=== PATIENT | male | born 1940 | race Caucasian/White ===

== ENCOUNTER → 2018-05-30 11:14 | Outpatient (CLI) | payer MEDICARE, OTHER, SELFPAY ==
--- NOTE | 2018-05-30 11:23 | XR_ITS ---
XR chest 2V HISTORY: ITS.REASON: PRODUCTIVE COUGH, HYMOPTYSIS ORDERING PHYSICIAN: Mohit Perez MD PATIENT AGE: 78 years COMPARISON: 12/25/2016 FINDINGS: Cardiomegaly with pulmonary venous congestion as with chronic CHF. There is increased density in both lower lobes suggesting bibasilar infiltrates appear worse on the previous exam. There is also prominence of the right suprahilar region. IMPRESSION: 1. Cardiomegaly with chronic CHF. 2. Chronic bibasilar infiltrates 3. Possible right suprahilar nodule
== END ==
PROVIDERS: PCP Family Medicine; Visit Provider Family Medicine
DX: R05 Cough (principal); R04.2 Hemoptysis
CPT/HCPCS: 71046

== ENCOUNTER → 2018-08-02 12:53 | Outpatient (CLI) | payer MEDICARE, OTHER, SELFPAY ==
[2018-08-02 13:31] LABS: Blood Urea Nitrogen 11 mg/dL (7-18); Creatinine,Serum 1.27 mg/dL (0.70-1.30); Estimated Glomerular Filt Rate 55 ml/min (>60); GFR (African American) 67 ML/MIN (>60)
--- NOTE | 2018-08-02 13:42 | CT_ITS ---
CT chest w con HISTORY: ITS.REASON: HEMOPTYSIS,ABNORMAL CXR ORDERING PHYSICIAN: Mohit Perez MD PATIENT AGE: 78 years COMPARISON: 05/30/2018 TECHNIQUE: Axial images obtained following the administration of 75 mL of Isovue 370 . Sagittal, and coronal reformatted images are also generated and reviewed. All CT scans at the facility use one or more dose reduction, viz: automated exposure control, ma/kV adjustment per patient size (including targeted exams where dose is matched to indication, i.e. head), or iterative reconstruction technique. FINDINGS: Atherosclerotic changes involve the aorta and there are coronary artery calcifications. Normal heart size. There is also some calcification of the aortic valve. No pericardial effusion. There is a small hiatal hernia. No mediastinal or hilar mass is evident. A few scattered small nodes are present in the mediastinum. There are diffuse centrilobular emphysematous changes. There is an azygos fissure. Mild diffuse bronchial wall thickening is noted. There is a 7 x 4 mm noncalcified nodule in the region of the right minor fissure and may be due to small lymph node. No lobar consolidation or collapse is evident. There are mild atelectatic or fibrotic changes in the left lung base inferiorly. No suspicious nodules are evident. No central obstructing lesions. No acute bony anomalies. There is minimal right-sided gynecomastia. Upper abdominal images show increased density in the posterior aspect of the gallbladder consistent with cholelithiasis. IMPRESSION: 1. Centrilobular emphysema with diffuse bronchial thickening and hyperinflation consistent with obstructive chronic bronchitis. 2. No suspicious pulmonary nodules are evident. 3. Coronary artery calcification with a small amount of calcification of the aortic valve. 4. Hiatal hernia. 5. Cholelithiasis
== END ==
PROVIDERS: Visit Provider Family Medicine
DX: R04.2 Hemoptysis (principal); R93.89 Abnormal findings on diagnostic imaging of other specified body structures
CPT/HCPCS: 36415; 71260; 82565; 84520; Q9967

== ENCOUNTER 2018-09-29 10:47 | Inpatient (IN) ==
[2018-09-29 12:50] LABS: Basophils # 0.1 K/mm3 (0-0.2); Basophils % 0.3 % (0.1-2.0); Eosinophils # 0.1 K/mm3 (0.0-0.4); Eosinophils % 0.1 % (0.1-12.0); Hematocrit 42.3 % (42.0-52.0); Hemoglobin 13.3 g/dL (14.1-18.0); Lymphocytes # 1.2 K/mm3 (0.7-4.5); Lymphocytes % 3.2 % (10-50); Mean Corpuscular HGB Conc 31.4 g/dL (31.8-35.4); Mean Corpuscular Hemoglobin 28.9 pg (27.0-31.2); Mean Corpuscular Volume 92.2 fl (80-94); Mean Platelet Volume 9.1 fl (7.4-10.4); Monocytes # 1.4 K/mm3 (0.1-1.0); Monocytes % 3.8 % (1.7-9.3); Neutrophils % 92.6 % (37.0-80.0); Platelet Count 221 K/mm3 (142-424); Red Blood Count 4.59 M/mm3 (4.60-6.20); Red Cell Distribution Width 13.6 % (11.5-17.5); White Blood Count 37.8 K/mm3 (4.8-10.8)
--- NOTE | 2018-09-29 12:57 | Pharmacy Consult Notes ---
[facility] [place] Pharmacy VTE Monitoring - Patient Demographics Admission date: 09/29/18 Report Date: 09/29/18 Time: 12:57 Allergies/Adverse Reactions: Patient Allergies No Known Drug Allergies [NKDA] Allergy (Unknown, Verified 09/10/18 12:16) Height: 1.73 m Weight: 87.685 kg - VTE Risk Labs: VTE Related Lab Results Hgb 13.3 g/dL (14.1-18.0) L 09/29/18 12:28 Hct 42.3 % (42.0-52.0) 09/29/18 12:28 Plt Count 221 K/mm3 (142-424) 09/29/18 12:28 Was VTE Risk Assessment Performed: Yes VTE Score: 3 VTE Risk Level: Low Risk Clinical Trial Participant: No - Prophylaxis VTE Prophylaxis Ordered?: Yes Types of VTE Prophylaxis: TEDS Knee High
[2018-09-29 12:59] LABS: Albumin Level 3.6 gm/dL (3.4-5.0); Albumin/Globulin Ratio 0.9 (1.1-1.8); Anion Gap 17.7 mEq/L (5-15); Bilirubin,Total 1.7 mg/dL (0.2-1.0); Calcium 9.2 mg/dL (8.5-10.1); Potassium 3.7 mmoL/L (3.5-5.1); Total Protein,Serum 7.6 gm/dL (6.4-8.2)
[2018-09-29 13:29] LABS: Hypochromasia 1+; Lymphocytes % 3 % (10-50); Monocytes % 3 % (2-9); Neutrophils % 78 % (42-76); Total Cells Counted 100
--- NOTE | 2018-09-29 17:05 | History & Physical Report ---
*Admission Date: 09/29/18 <Sadie Rock 09/29/18 17:13> *Chief complaint: cough, SOA <Sadie Rock 09/29/18 17:13> *History of present illness: Mr. Jeffries is a 78-year-old male who states he has had problems with cough and congestion since May 2018. He has been seen numerous times in the office for bronchitis and has been on cefdinir, Augmentin, and Bactrim. He was seen in the emergency room in August and was found to have a pneumonia on the left side. He was started on Levaquin at that time. The patient states he thought he was feeling better until last night he began coughing up some blood and had some nasal congestion. His states he did vomit last night and became hot and started chilling. He became very shaky as well. He presented to the office of [facility] today for evaluation and was found to be hypoxic with a room air saturation of 87%. His white blood cell count was elevated at 37.8. He was admitted and started on pneumonia protocol and oxygen. <Sadie Rock 09/29/18 17:13> [facility] History Medical History: Reports:: Cancer (bladder tumore), Carotid Stenosis, Hyperlipidemia, Hypertension, Kidney Stones Denies:: Diabetes Mellitus Type 1, Diabetes Mellitus Type 2, MRSA <Sadie Rock 09/29/18 17:13> *Have you ever received a pneumonia vaccine?: Yes <Sadie Rock 09/29/18 17:13> *Have you received a flu vaccine this season?: Yes <Sadie Rock 09/29/18 17:13> Other Medical History: Reports: Other (prostatitis) <Sadie Rock 09/29/18 17:13> Other Surgeries: Yes: Other (Kidney stones, Left CEA, transurethral resection bladder tumor) <Sadie Rock 09/29/18 17:13> Amputation: No <Sadie Rock 09/29/18 17:13> - *Social History Educational Level: Completed Grade School <Sadie Rock 09/29/18 17:13> Smoking Status: Former smoker <Sadie Rock 09/29/18 17:13> Tobacco Type: cigarettes <Sadie Rock - 09/29/18 17:13> Alcohol Intake: never <Sadie Rock 09/29/18 17:13> *Occupational Status:: retired, other <Sadie Rock 09/29/18 17:13> Housing: house <Sadie Rock 09/29/18 17:13> Household Members: spouse <Sadie Rock 09/29/18 17:13> *Travel in the last 8 weeks: None <Sadie Rock 09/29/18 17:13> - Psychiatric History Expresses thoughts of harming self/others: None <Sadie Rock 09/29/18 17:13> Suicide Plan Description: No Plan <Sadie Rock 09/29/18 17:13> Family Hx:: Cancer <Sadie Rock 09/29/18 17:13> Review of Systems - Constitutional Reports chills, Reports fatigue, Reports fever(s), Reports weakness <Sadie Rock 09/29/18 17:13> - Eyes Denies blurry vision, Denies double vision <ShwetaSadie 09/29/18 17:13> - ENT Reports nasal congestion, Denies sore throat <Jameel Rocka 09/29/18 17:13> - *Cardiovascular Denies chest pain, Denies rapid, pounding, or irregular heartbeat <Jameel Rocka 09/29/18 17:13> - *Respiratory Reports cough, Reports shortness of breath, Reports coughing up blood <Jameel Rocka 09/29/18 17:13> - *Gastrointestinal Reports nausea, Reports vomiting, Denies abdominal pain, Denies loose stools [facility]/29/[facility] 17:13> - *Genitourinary Denies difficulty urinating, Denies painful urination <Jameel Rocka 09/29/18 17:13> - *Musculoskeletal Denies joint pain <Jameel Rocka 09/29/18 17:13> - *Neurologic Reports headache(s), Reports weakness, Denies dizziness <Sadie Rock 09/29/18 17:13> Meds Home Medications Medication Instructions Recorded Confirmed Type Clopidogrel Bisulfate [Plavix 75mg 75 mg PO DAILY 09/10/18 09/29/18 History Tab] Nebivolol HCl [Bystolic] 10 mg PO DAILY 09/10/18 09/29/18 History Simvastatin 20 mg PO HS 09/10/18 09/29/18 History Tamsulosin HCl [Flomax 0.4mg 0.4 mg PO BID 09/10/18 09/29/18 History capsule] Fluticasone Propionate 1 spray NOSTRIL-B DAILY 09/29/18 09/29/18 History Lisinopril [Lisinopril 10mg Tab] 15 mg PO BID 09/29/18 09/29/18 History Umeclidinium Brm/Vilanterol Tr 1 puff IH DAILY 09/29/18 09/29/18 History [Anoro Ellipta 62.5-25 Mcg INH] Cimetidine [Tagamet Hb] 200 mg PO BID 09/30/18 09/30/18 History <Mohit Perez - 09/30/18 16:52> Allergies Allergy/AdvReac Type Severity Reaction Status Date / Time No Known Drug Allergies Allergy Unknown Verified 09/10/18 12:16 [NKDA] <Mohit Perez - 09/30/18 16:52> Exam Vital signs and Labs for Last 24 Hours: Temp Pulse Resp BP Pulse Ox 98.0 F 80 18 142/62 H 93 L 09/30/18 12:00 09/30/18 12:00 09/30/18 12:00 09/30/18 12:00 09/30/18 12:00 Laboratory Results - last 24 hr 09/30/18 07:15: WBC 18.9 H D, RBC 3.87 L, Hgb 11.5 L D, Hct 35.7 L, MCV 92.4, MCH 29.9, MCHC 32.3, RDW 13.7, Plt Count 165 D, MPV 9.3, Neut % (Auto) 83.2 H, Lymph % (Auto) 11.9, [place] % (Auto) 4.6, Eos % (Auto) 0.2, Baso % (Auto) 0.1, Neut # (Auto) 15.7 H, Lymph # (Auto) 2.3, [place] # (Auto) 0.9, Eos # (Auto) 0.0, Baso # (Auto) 0.0, Total Counted 100, Neutrophils % (Manual) 83 H, Lymphocytes % (Manual) 12, Monocytes % (Manual) 5, Platelet Estimate Normal, RBC Morphology Normal 09/30/18 07:15: Sodium 140, Potassium 3.6, Chloride 106, Carbon Dioxide 25, Anion Gap 12.6, BUN 18, Creatinine 1.32 H, Estimated Creat Clear 59, Estimated GFR 53 L, Est GFR ( Amer) 64 D, Glucose 112 H, Calcium 8.8 <Mohit Perez - 09/30/18 16:52> Temp Pulse Resp BP Pulse Ox 98.0 F 82 16 129/56 L 90 L 09/29/18 16:00 09/29/18 16:00 09/29/18 16:00 09/29/18 16:00 09/29/18 16:00 Laboratory Results - last 24 hr 09/29/18 12:28: WBC 37.8 H*, RBC 4.59 L, Hgb 13.3 L, Hct 42.3, MCV 92.2, MCH 28.9, MCHC 31.4 L, RDW 13.6, Plt Count 221, MPV 9.1, Neut % (Auto) 92.6 H, Lymph % (Auto) 3.2 L, [place] % (Auto) 3.8, Eos % (Auto) 0.1, Baso % (Auto) 0.3, Neut # (Auto) 35.0 H, Lymph # (Auto) 1.2, [place] # (Auto) 1.4 H, Eos # (Auto) 0.1, Baso # (Auto) 0.1, Total Counted 100, Neutrophils % (Manual) 78 H, Band Neutrophils % 16.0 H, Lymphocytes % (Manual) 3 L, Monocytes % (Manual) 3, Platelet Estimate Normal, Hypochromasia 1+ 09/29/18 12:28: Sodium 142, Potassium 3.7, Chloride 105, Carbon Dioxide 23, Anion Gap 17.7 H, BUN 16, Creatinine 1.61 H, Estimated Creat Clear 48, Estimated GFR 42 L, Est GFR ( Amer) 51 L, Glucose 113 H, Calcium 9.2, Total Bilirubin 1.7 H, AST 20, ALT 17, Alkaline Phosphatase 79, Total Protein 7.6, Albumin 3.6, Globulin 4.0 H, Albumin/Globulin Ratio 0.9 L 09/29/18 12:28: Mycoplasma pneumon IgM Non-reactive 09/29/18 12:28: B-Natriuretic Peptide 509 H 09/29/18 14:40: Influenza Type A Ag Negative, Influenza Type B Ag Negative <Sadie Rock - 09/29/18 17:13> I & O for Last 24 hours: Intake & Output 09/28/18 09/29/18 09/30/18 10/01/18 11:59 11:59 11:59 11:59 Intake Total 1362 / 1362 480 / 480 Balance 1362 / 1362 480 / 480 Weight 193 lb 5 oz 193 lb 5 oz <Mohit Perez - 09/30/18 16:52> Intake & Output 09/27/18 09/28/18 09/29/18 09/30/18 11:59 11:59 11:59 11:59 Intake Total 240 / 240 Balance 240 / 240 Weight 193 lb 5 oz 193 lb 5 oz <Sadie Rock - 09/29/18 17:13> Microbiology Reports for the Last 24 Hours: Microbiology 09/29/18 18:30 Sputum - Expectorated Sputum Gram Stain - Final 09/29/18 18:30 Sputum - Expectorated Sputum Sputum Culture - Preliminary <Mohit Perez - 09/30/18 16:52> - Constitutional no acute distress <Sadie Rock - 09/29/18 17:13> - *Routine HEENT Exam Head: Present: normocephalic <Sadie Rock - 09/29/18 17:13> Eye: Present: EOMI, PERRL <Sadie Rock - 09/29/18 17:13> ENT: Present: mucous membranes moist <Sadie Rock - 09/29/18 17:13> Comments: nose congested <Sadie Rock - 09/29/18 17:13> - *Routine Neck Exam Present: supple. Absent: lymphadenopathy <Sadie Rock 09/29/18 17:13> - *Routine Respiratory Exam Present: rhonchi (worse on the right) <Sadie Rock - 09/29/18 17:13> - *Routine Cardiovascular Exam Present: RRR <Sadie Rock 09/29/18 17:13> - *Routine Abdominal Exam Present: soft, normoactive bowel sounds. Absent: tenderness <Sadie Rock 09/29/18 17:13> - *Routine Extremities Exam Absent: cyanosis, clubbing, edema <Sadie Rock 09/29/18 17:13> - *Routine Skin Exam Present: warm. Absent: rash <Sadie Rock 09/29/18 17:13> - *Routine Neurological Exam Present: alert, oriented X3 <[facility] 09/29/18 17:13> Assessment and Plan (1) Pneumonia Current visit: Yes Status: Acute Category: Medical Code(s): J18.9 - Pneumonia, unspecified organism (2) Hypoxia Current visit: Yes Status: Acute Category: Medical Code(s): R09.02 - Hypoxemia (3) Leukocytosis Current visit: Yes Status: Acute Category: Medical Code(s): D72.829 - Elevated white blood cell count, unspecified (4) Renal insufficiency Current visit: Yes Status: Acute Category: Medical Code(s): N28.9 - Disorder of kidney and ureter, unspecified (5) Hyperlipidemia Current visit: Yes Status: Chronic Category: Medical Code(s): E78.5 - Hyperlipidemia, unspecified (6) Hypertension Current visit: No Status: Chronic Category: Medical Code(s): I10 - Essential (primary) hypertension <Sadie Rock 09/29/18 17:00> (1) Pneumonia Current visit: Yes Status: Acute Category: Medical Code(s): J18.9 - Pneumonia, unspecified organism (2) Hypoxia Current visit: Yes Status: Acute Category: Medical Code(s): R09.02 - Hypoxemia (3) Leukocytosis Current visit: Yes Status: Acute Category: Medical Code(s): D72.829 - Elevated white blood cell count, unspecified (4) Renal insufficiency Current visit: Yes Status: Acute Category: Medical Code(s): N28.9 - Disorder of kidney and ureter, unspecified (5) Hyperlipidemia Current visit: Yes Status: Chronic Category: Medical Code(s): E78.5 - Hyperlipidemia, unspecified (6) Hypertension Current visit: No Status: Chronic Category: Medical Code(s): I10 - Essential (primary) hypertension <Mohit Perez - 09/30/18 16:52> - Assessment and plan all Dx Assessment and Plan for all problems:: Patient seen and examined on admission. Concur with assessment and plan as outlined. Will also check BNP and if elevated, consider echo. <Mohit Perez - 09/30/18 16:52> Patient has been started on abx, zofran, and IVF's at a slow rate. Will await sputum cx and CXR results. <Sadie Rock - 09/29/18 17:13>
[2018-09-30 07:36] LABS: Basophils % 0.1 % (0.1-2.0); Eosinophils % 0.2 % (0.1-12.0); Lymphocytes # 2.3 K/mm3 (0.7-4.5); Mean Platelet Volume 9.3 fl (7.4-10.4); Neutrophils # 15.7 K/mm3 (1.8-7.8); Red Cell Distribution Width 13.7 % (11.5-17.5); White Blood Count 18.9 K/mm3 (4.8-10.8)
[2018-09-30 07:40] LABS: Anion Gap 12.6 mEq/L (5-15); Calcium 8.8 mg/dL (8.5-10.1); Potassium 3.6 mmoL/L (3.5-5.1)
[2018-09-30 07:43] LABS: Hematocrit 35.7 % (42.0-52.0); Lymphocytes % 11.9 % (10-50); Mean Corpuscular HGB Conc 32.3 g/dL (31.8-35.4); Mean Corpuscular Hemoglobin 29.9 pg (27.0-31.2); Mean Corpuscular Volume 92.4 fl (80-94); Monocytes # 0.9 K/mm3 (0.1-1.0); Monocytes % 4.6 % (1.7-9.3); Neutrophils % 83.2 % (37.0-80.0); Platelet Count 165 K/mm3 (142-424)
--- NOTE | 2018-09-30 08:10 | Progress Note ---
<Sadie Rock - Last Filed: 09/30/18 08:07> Internal Medicine - PN: Subj *Date: 09/30/18 *Time: 08:07 Interval history: Patient states he is feeling a little bit better today. He is still coughing. He denies any pain. He states he ate a good breakfast and slept well last night. Exam Vital signs and Labs for Last 24 Hours: Temp Pulse Resp BP Pulse Ox 98.3 F 72 16 151/53 H 89 L 09/30/18 07:53 09/30/18 07:53 09/30/18 07:53 09/30/18 07:53 09/30/18 07:53 Laboratory Results - last 24 hr 09/29/18 12:28: WBC 37.8 H*, RBC 4.59 L, Hgb 13.3 L, Hct 42.3, MCV 92.2, MCH 28.9, MCHC 31.4 L, RDW 13.6, Plt Count 221, MPV 9.1, Neut % (Auto) 92.6 H, Lymph % (Auto) 3.2 L, [place] % (Auto) 3.8, Eos % (Auto) 0.1, Baso % (Auto) 0.3, Neut # (Auto) 35.0 H, Lymph # (Auto) 1.2, [place] # (Auto) 1.4 H, Eos # (Auto) 0.1, Baso # (Auto) 0.1, Total Counted 100, Neutrophils % (Manual) 78 H, Band Neutrophils % 16.0 H, Lymphocytes % (Manual) 3 L, Monocytes % (Manual) 3, Platelet Estimate Normal, Hypochromasia 1+ 09/29/18 12:28: Sodium 142, Potassium 3.7, Chloride 105, Carbon Dioxide 23, Anion Gap 17.7 H, BUN 16, Creatinine 1.61 H, Estimated Creat Clear 48, Estimated GFR 42 L, Est GFR ( Amer) 51 L, Glucose 113 H, Calcium 9.2, Total Bilirubin 1.7 H, AST 20, ALT 17, Alkaline Phosphatase 79, Total Protein 7.6, Albumin 3.6, Globulin 4.0 H, Albumin/Globulin Ratio 0.9 L 09/29/18 12:28: Mycoplasma pneumon IgM Non-reactive 09/29/18 12:28: B-Natriuretic Peptide 509 H 09/29/18 14:40: Influenza Type A Ag Negative, Influenza Type B Ag Negative 09/30/18 07:15: WBC 18.9 H D, RBC 3.87 L, Hct 35.7 L, MCV 92.4, MCH 29.9, MCHC 32.3, RDW 13.7, Plt Count 165 D, MPV 9.3, Neut % (Auto) 83.2 H, Lymph % (Auto) 11.9, [place] % (Auto) 4.6, Eos % (Auto) 0.2, Baso % (Auto) 0.1, Neut # (Auto) 15.7 H, Lymph # (Auto) 2.3, [place] # (Auto) 0.9, Eos # (Auto) 0.0, Baso # (Auto) 0.0 09/30/18 07:15: Sodium 140, Potassium 3.6, Chloride 106, Carbon Dioxide 25, Anion Gap 12.6, BUN 18, Creatinine 1.32 H, Estimated Creat Clear 59, Estimated GFR 53 L, Est GFR ( Amer) 64 D, Glucose 112 H, Calcium 8.8 I & O for Last 24 hours: Intake & Output 09/27/18 09/28/18 09/29/18 09/30/18 11:59 11:59 11:59 11:59 Intake Total 1362 / 1362 Balance 1362 / 1362 Weight 193 lb 5 oz 193 lb 5 oz Microbiology Reports for the Last 24 Hours: Microbiology 09/29/18 18:30 Sputum - Expectorated Sputum Gram Stain - Final 09/29/18 18:30 Sputum - Expectorated Sputum Sputum Culture - Preliminary Radiology Reports for the Last 24 Hours: CXR - Right chest Diffuse pneumonic infiltrate throughout right lung-most evident towards the right lung base. Left chest Infiltrate LLL has shows slight further improvement since 09/10/2018. Only Minimal residual infiltrate left lung base Underlying COPD and emphysematous changes. Mild vascular engorgement . - Constitutional no acute distress - *Routine Respiratory Exam Present: rhonchi (on the right), wheezes (on the right). Absent: crackles - *Routine Cardiovascular Exam Present: RRR - *Routine Abdominal Exam Present: soft, normoactive bowel sounds. Absent: tenderness - *Routine Extremities Exam Absent: cyanosis, clubbing, edema Assessment and Plan (1) Pneumonia Current visit: Yes Status: Acute Category: Medical Code(s): J18.9 - Pneumonia, unspecified organism (2) Hypoxia Current visit: Yes Status: Acute Category: Medical Code(s): R09.02 - Hypoxemia (3) Leukocytosis Current visit: Yes Status: Acute Category: Medical Code(s): D72.829 - Elevated white blood cell count, unspecified (4) Renal insufficiency Current visit: Yes Status: Acute Category: Medical Code(s): N28.9 - Disorder of kidney and ureter, unspecified (5) Hyperlipidemia Current visit: Yes Status: Chronic Category: Medical Code(s): E78.5 - Hyperlipidemia, unspecified (6) Hypertension Current visit: No Status: Chronic Category: Medical Code(s): I10 - Essential (primary) hypertension - Assessment and plan all Dx Assessment and Plan for all problems:: Chest x-ray reviewed. White count is improving on current antibiotics. We will continue current treatment and discuss further care with Dr. Perez. <Mohit Perez - Last Filed: 09/30/18 16:54> Exam Vital signs and Labs for Last 24 Hours: Temp Pulse Resp BP Pulse Ox 98.0 F 80 18 142/62 H 93 L 09/30/18 12:00 09/30/18 12:00 09/30/18 12:00 09/30/18 12:00 09/30/18 12:00 Laboratory Results - last 24 hr 09/30/18 07:15: WBC 18.9 H D, RBC 3.87 L, Hgb 11.5 L D, Hct 35.7 L, MCV 92.4, MCH 29.9, MCHC 32.3, RDW 13.7, Plt Count 165 D, MPV 9.3, Neut % (Auto) 83.2 H, Lymph % (Auto) 11.9, [place] % (Auto) 4.6, Eos % (Auto) 0.2, Baso % (Auto) 0.1, Neut # (Auto) 15.7 H, Lymph # (Auto) 2.3, [place] # (Auto) 0.9, Eos # (Auto) 0.0, Baso # (Auto) 0.0, Total Counted 100, Neutrophils % (Manual) 83 H, Lymphocytes % (Manual) 12, Monocytes % (Manual) 5, Platelet Estimate Normal, RBC Morphology Normal 09/30/18 07:15: Sodium 140, Potassium 3.6, Chloride 106, Carbon Dioxide 25, Anion Gap 12.6, BUN 18, Creatinine 1.32 H, Estimated Creat Clear 59, Estimated GFR 53 L, Est GFR ( Amer) 64 D, Glucose 112 H, Calcium 8.8 I & O for Last 24 hours: Intake & Output 09/28/18 09/29/18 09/30/18 10/01/18 11:59 11:59 11:59 11:59 Intake Total 1362 / 1362 480 / 480 Balance 1362 / 1362 480 / 480 Weight 193 lb 5 oz 193 lb 5 oz Microbiology Reports for the Last 24 Hours: Microbiology 09/29/18 18:30 Sputum - Expectorated Sputum Gram Stain - Final 09/29/18 18:30 Sputum - Expectorated Sputum Sputum Culture - Preliminary Assessment and Plan (1) Pneumonia Current visit: Yes Status: Acute Category: Medical Code(s): J18.9 - Pneumonia, unspecified organism (2) Hypoxia Current visit: Yes Status: Acute Category: Medical Code(s): R09.02 - Hypoxemia (3) Leukocytosis Current visit: Yes Status: Acute Category: Medical Code(s): D72.829 - Elevated white blood cell count, unspecified (4) Renal insufficiency Current visit: Yes Status: Acute Category: Medical Code(s): N28.9 - Disorder of kidney and ureter, unspecified (5) Hyperlipidemia Current visit: Yes Status: Chronic Category: Medical Code(s): E78.5 - Hyperlipidemia, unspecified (6) Hypertension Current visit: No Status: Chronic Category: Medical Code(s): I10 - Essential (primary) hypertension - Assessment and plan all Dx Assessment and Plan for all problems:: Patient seen and examined this AM. He appears comfortable. No further vomiting and is tolerating his diet. Some productive cough. No chest pain. WBC improved significantly. BNP elevated therefore with check Echo and start Lasix.
[2018-09-30 09:03] LABS: Lymphocytes % 12 % (10-50); Monocytes % 5 % (2-9); Neutrophils % 83 % (42-76); RBC Morphology Normal; Total Cells Counted 100
[2018-09-30 10:05] LABS: Red Blood Count 3.87 M/mm3 (4.60-6.20)
[2018-09-30 10:07] LABS: Hemoglobin 11.5 g/dL (14.1-18.0)
--- NOTE | 2018-09-30 13:42 | Cardiology Report ---
PROCEDURE: 2-D M-mode and color Doppler study INDICATIONS FOR THE TEST: Chest pain COPD Heart Murmur Tobacco Smokingex Palpitations Fatigue Syncope Edema Hypertension+Diabetes Mellitus Rheumatic Fever SOB MCCARTHY Obesity Hyperlipidemia+ Family History HD Additional History pneumonia PATIENT INFORMATION HEIGHT:68 WEIGHT: 193 GENDER: Male B/P: 129/56 2-D/M-MODE INTERPRETATION: 2-D MEASUREMENTS OBSERVED VALUES IN CMS Right Ventricular Dimension (RVDd) 2.7 Interventricular Septum (Thickness)(IVsd) 1.0 Left Ventricular Internal Dimensions(LVIDd) 2.7 Left Ventricular Posterior Wall (Thickness)(LVPWd) 1.0 Aortic Root 2.3 Aortic Cusp Separation 2.2 Left Atrial Dimensions (LAD) 4.6 2D 1. Left atrium is mildly enlarged, left ventricle is normal size, mild concentric left ventricular hypertrophy, visually estimated ejection fraction of 50-55% with no regional wall motion abnormality. 2. The right atrium and right ventricle are mildly enlarged with normal contractility. 3. The aortic valve is minimally thickened and fibrosed. 4. The mitral and tricuspid valve leaflets are minimally thickened. 5. The pulmonic valve is poorly visualized. 6. No significant pericardial effusion noted. DOPPLER INTERROGATION: Doppler interrogation of the aortic, mitral and tricuspid valvular presence of mild aortic, mild mitral and tricuspid regurgitation, dilated right ventricular systolic pressure is 59 mmHg consistent with moderate pulmonary hypertension. Diastolic parameters are inconclusive. CONCLUSION: 1. Biatrial enlargement, normal left ventricular size, mild concentric left ventricular hypertrophy, estimated ejection fraction of 50-55% with no regional wall motion abnormality, diastolic parameters are inconclusive. 2. Mildly enlarged right ventricle with normal contractility. 3. Mild mitral and tricuspid regurgitation, calculated right ventricular systolic pressure is 59 mmHg. Consistent with moderate pulmonary hypertension. 4. Mild aortic insufficiency 5. No significant pericardial effusion noted.
--- NOTE | 2018-10-01 10:02 | Progress Note ---
Internal Medicine - PN: Subj *Date: 10/01/18 *Time: 10:00 Interval history: He states he rested better last night. He urinated quite a bit yesterday after the Lasix. He still has cough productive of yellow sputum. No blood in the sputum. He is tolerating his diet with no nausea or further vomiting. Exam Vital signs and Labs for Last 24 Hours: Temp Pulse Resp BP Pulse Ox 97.8 F 56 L 19 148/73 H 94 L 10/01/18 08:00 10/01/18 08:00 10/01/18 08:00 10/01/18 08:00 10/01/18 08:00 Laboratory Results - last 24 hr 09/30/18 07:15: RBC 3.87 L, Hgb 11.5 L D I & O for Last 24 hours: Intake & Output 09/28/18 09/29/18 09/30/18 10/01/18 11:59 11:59 11:59 11:59 Intake Total 1362 / 1362 1988 Output Total 150 / 150 Balance 1362 / 1362 1839 / 1839 Weight 193 lb 5 oz 193 lb 5 oz 194 lb 1 oz Microbiology Reports for the Last 24 Hours: Microbiology 09/29/18 18:30 Sputum - Expectorated Sputum Gram Stain - Final 09/29/18 18:30 Sputum - Expectorated Sputum Sputum Culture - Preliminary Narrative: He is sitting up in bed and appears in no respiratory distress. Color is normal. Chest reveals some rales in the right base. No wheezes. Heart is regular. Abdomen soft and nondistended with minimal epigastric tenderness. Assessment and Plan (1) Pneumonia Current visit: Yes Status: Acute Category: Medical Code(s): J18.9 - Pneumonia, unspecified organism (2) Hypoxia Current visit: Yes Status: Acute Category: Medical Code(s): R09.02 - Hypoxemia (3) Leukocytosis Current visit: Yes Status: Acute Category: Medical Code(s): D72.829 - Elevated white blood cell count, unspecified (4) Renal insufficiency Current visit: Yes Status: Acute Category: Medical Code(s): N28.9 - Disorder of kidney and ureter, unspecified (5) Hyperlipidemia Current visit: Yes Status: Chronic Category: Medical Code(s): E78.5 - Hyperlipidemia, unspecified (6) Hypertension Current visit: No Status: Chronic Category: Medical Code(s): I10 - Essential (primary) hypertension (7) CHF (congestive heart failure) Current visit: Yes Status: Acute Category: Medical Code(s): I50.9 - Heart failure, unspecified - Assessment and plan all Dx Assessment and Plan for all problems:: We will continue current antibiotic regimen pending results of sputum cultures. We will continue Lasix. Encourage activity.
[2018-10-02 06:43] LABS: Basophils % 0.4 % (0.1-2.0); Eosinophils # 0.2 K/mm3 (0.0-0.4); Eosinophils % 2.3 % (0.1-12.0); Hematocrit 35.2 % (42.0-52.0); Hemoglobin 11.2 g/dL (14.1-18.0); Lymphocytes # 2.2 K/mm3 (0.7-4.5); Lymphocytes % 29.4 % (10-50); Mean Corpuscular HGB Conc 31.9 g/dL (31.8-35.4); Mean Corpuscular Volume 91.1 fl (80-94); Mean Platelet Volume 9.1 fl (7.4-10.4); Monocytes # 0.4 K/mm3 (0.1-1.0); Monocytes % 5.3 % (1.7-9.3); Neutrophils # 4.7 K/mm3 (1.8-7.8); Neutrophils % 62.5 % (37.0-80.0); Platelet Count 188 K/mm3 (142-424); Red Blood Count 3.86 M/mm3 (4.60-6.20); Red Cell Distribution Width 13.4 % (11.5-17.5); White Blood Count 7.5 K/mm3 (4.8-10.8)
[2018-10-02 06:53] LABS: Anion Gap 13.2 mEq/L (5-15); Potassium 3.2 mmoL/L (3.5-5.1)
--- NOTE | 2018-10-02 09:23 | Progress Note ---
Internal Medicine - PN: Subj Interval history: He states he did not sleep well last night due to severe heartburn despite receiving his hs dose of Pepcid as well as a dose of Mylanta. No nausea or vomiting. His breathing feels a little better. He is coughing less but still productive of some yellow sputum. He has had problems with IV access. A PICC line was offered yesterday but he refused. Nursing staff was finally able to establish a peripheral IV in his right hand. Exam Vital signs and Labs for Last 24 Hours: Temp Pulse Resp BP Pulse Ox 97.6 F 68 18 145/85 H 85 L 10/02/18 08:00 10/02/18 08:00 10/02/18 08:00 10/02/18 08:00 10/02/18 08:00 Laboratory Results - last 24 hr 10/02/18 06:02: WBC 7.5 D, RBC 3.86 L, Hgb 11.2 L, Hct 35.2 L, MCV 91.1, MCH 29.0, MCHC 31.9, RDW 13.4, Plt Count 188, MPV 9.1, Neut % (Auto) 62.5, Lymph % (Auto) 29.4, [place] % (Auto) 5.3, Eos % (Auto) 2.3, Baso % (Auto) 0.4, Neut # (Auto) 4.7, Lymph # (Auto) 2.2, [place] # (Auto) 0.4, Eos # (Auto) 0.2, Baso # (Auto) 0.0 10/02/18 06:02: Sodium 142, Potassium 3.2 L, Chloride 104, Carbon Dioxide 28, Anion Gap 13.2, BUN 13 D, Creatinine 1.11, Estimated Creat Clear 70, Estimated GFR 64, Est GFR ( Amer) 78 D, Glucose 100, Calcium 9.0 I & O for Last 24 hours: Intake & Output 09/29/18 09/30/18 10/01/18 10/02/18 11:59 11:59 11:59 12:59 Intake Total 1362 / 1362 1988 / 1988 840 / 840 Output Total 360 / 360 875 / 875 Balance 1362 / 1362 1629 / 1629 -35 / -35 Weight 193 lb 5 oz 193 lb 5 oz 194 lb 1 oz 193 lb 5.526 oz Microbiology Reports for the Last 24 Hours: Microbiology 09/29/18 18:30 Sputum - Expectorated Sputum Gram Stain - Final 09/29/18 18:30 Sputum - Expectorated Sputum Sputum Culture - Final Normal Respiratory Mary Ann 09/29/18 12:28 Blood Blood Culture - Preliminary NO GROWTH AFTER 48 HOURS 09/29/18 12:28 Blood Blood Culture - Preliminary NO GROWTH AFTER 48 HOURS Narrative: He is asleep when the room is entered. He arouses easily. He appears in no distress. Chest reveals improved breath sounds in the right base with only occasional rhonchi. No wheezes. Heart is regular. Abdomen is soft and nondistended with normal bowel sounds. There is mild epigastric tenderness to palpation. Extremities show no edema. Assessment and Plan (1) Pneumonia Current visit: Yes Status: Acute Category: Medical Code(s): J18.9 - Pneumonia, unspecified organism (2) Hypoxia Current visit: Yes Status: Acute Category: Medical Code(s): R09.02 - Hypoxemia (3) Leukocytosis Current visit: Yes Status: Acute Category: Medical Code(s): D72.829 - Elevated white blood cell count, unspecified (4) Renal insufficiency Current visit: Yes Status: Acute Category: Medical Code(s): N28.9 - Disorder of kidney and ureter, unspecified (5) Hyperlipidemia Current visit: Yes Status: Chronic Category: Medical Code(s): E78.5 - Hyperlipidemia, unspecified (6) Hypertension Current visit: No Status: Chronic Category: Medical Code(s): I10 - Essential (primary) hypertension (7) CHF (congestive heart failure) Current visit: Yes Status: Acute Category: Medical Code(s): I50.9 - Heart failure, unspecified (8) GERD (gastroesophageal reflux disease) Current visit: Yes Status: Acute Category: Medical Code(s): K21.9 - Gastro-esophageal reflux disease without esophagitis (9) Hypokalemia Current visit: No Status: Acute Category: Medical Code(s): E87.6 - Hypokalemia - Assessment and plan all Dx Assessment and Plan for all problems:: His white count has returned to normal. Respiratory status has improved. We will continue with oral Lasix for diuresis. We will add Protonix for his GE reflux. Continue potassium supplement. His sputum culture has grown only normal mary ann. We will continue current antibiotic regimen. We will discontinue IV fluids. He is encouraged to be up and out of bed today. Possible discharge home tomorrow.
--- NOTE | 2018-10-02 11:54 | Progress Note ---
Internal Medicine - PN: Subj *Date: 10/02/18 *Time: 11:53 Exam Vital signs and Labs for Last 24 Hours: Temp Pulse Resp BP Pulse Ox 97.6 F 68 18 145/85 H 93 L 10/02/18 08:00 10/02/18 08:00 10/02/18 08:00 10/02/18 08:00 10/02/18 10:04 Laboratory Results - last 24 hr 10/02/18 06:02: WBC 7.5 D, RBC 3.86 L, Hgb 11.2 L, Hct 35.2 L, MCV 91.1, MCH 29.0, MCHC 31.9, RDW 13.4, Plt Count 188, MPV 9.1, Neut % (Auto) 62.5, Lymph % (Auto) 29.4, [place] % (Auto) 5.3, Eos % (Auto) 2.3, Baso % (Auto) 0.4, Neut # (Auto) 4.7, Lymph # (Auto) 2.2, [place] # (Auto) 0.4, Eos # (Auto) 0.2, Baso # (Auto) 0.0 10/02/18 06:02: Sodium 142, Potassium 3.2 L, Chloride 104, Carbon Dioxide 28, Anion Gap 13.2, BUN 13 D, Creatinine 1.11, Estimated Creat Clear 70, Estimated GFR 64, Est GFR ( Amer) 78 D, Glucose 100, Calcium 9.0 I & O for Last 24 hours: Intake & Output 09/29/18 09/30/18 10/01/18 10/03/18 23:59 23:59 23:59 00:59 Intake Total 240 / 240 1602 / 1602 1988 360 / 360 Output Total 1235 / 1235 Balance 240 / 240 1602 / 1602 754 / 754 360 / 360 Weight 87.685 kg 88.025 kg 87.7 kg Microbiology Reports for the Last 24 Hours: Microbiology 09/29/18 18:30 Sputum - Expectorated Sputum Gram Stain - Final 09/29/18 18:30 Sputum - Expectorated Sputum Sputum Culture - Final Normal Respiratory Ana Lilia 09/29/18 12:28 Blood Blood Culture - Preliminary NO GROWTH AFTER 48 HOURS 09/29/18 12:28 Blood Blood Culture - Preliminary NO GROWTH AFTER 48 HOURS Assessment and Plan (1) Pneumonia Current visit: Yes Status: Acute Category: Medical Code(s): J18.9 - Pneumonia, unspecified organism (2) Hypoxia Current visit: Yes Status: Acute Category: Medical Code(s): R09.02 - Hypoxemia (3) Leukocytosis Current visit: Yes Status: Acute Category: Medical Code(s): D72.829 - Elevated white blood cell count, unspecified (4) Renal insufficiency Current visit: Yes Status: Acute Category: Medical Code(s): N28.9 - Disorder of kidney and ureter, unspecified (5) Hyperlipidemia Current visit: Yes Status: Chronic Category: Medical Code(s): E78.5 - Hyperlipidemia, unspecified (6) Hypertension Current visit: No Status: Chronic Category: Medical Code(s): I10 - Essential (primary) hypertension (7) CHF (congestive heart failure) Current visit: Yes Status: Acute Category: Medical Code(s): I50.9 - Heart failure, unspecified (8) GERD (gastroesophageal reflux disease) Current visit: Yes Status: Acute Category: Medical Code(s): K21.9 - Gastro-esophageal reflux disease without esophagitis (9) Hypokalemia Current visit: No Status: Acute Category: Medical Code(s): E87.6 - Hypokalemia The patient's infection will respond to the chosen ABx?: Yes Is the patient receiving the right drug, dose, and route?: Yes Could a more targeted ABx be ordered?: No (NORMAL ANA LILIA IN CULTURES)
[2018-10-03 07:30] LABS: Anion Gap 12.4 mEq/L (5-15); Calcium 9.2 mg/dL (8.5-10.1); Potassium 3.4 mmoL/L (3.5-5.1)
[2018-10-03 07:51] LABS: Creatine Kinase 72 U/L (39-308)
--- NOTE | 2018-10-03 08:24 | Progress Note ---
Internal Medicine - PN: Subj *Date: 10/03/18 *Time: 08:21 Interval history: Feels better and wants to go home. He has been tolerating activity in the room. Appetite is good. Still has some cough but dyspnea has improved. Exam Vital signs and Labs for Last 24 Hours: Temp Pulse Resp BP Pulse Ox 98.5 F 62 16 157/64 H 84 L 10/03/18 04:00 10/03/18 04:00 10/03/18 04:00 10/03/18 04:00 10/03/18 05:43 Laboratory Results - last 24 hr 10/03/18 06:58: Sodium 142, Potassium 3.4 L, Chloride 103, Carbon Dioxide 30, Anion Gap 12.4, BUN 12, Creatinine 1.09, Estimated Creat Clear 71, Estimated GFR 66, Est GFR ( Amer) 80, Glucose 109 H, Calcium 9.2 10/03/18 06:58: B-Natriuretic Peptide 224 H 10/03/18 06:58: Total Creatine Kinase 72, CK-MB (CK-2) < 0.5 D, CK-MB (CK-2) Rel Index 0.7, Troponin I 0.03 I & O for Last 24 hours: Intake & Output 09/30/18 10/01/18 10/02/18 10/03/18 10:59 10:59 11:59 11:59 Intake Total 320 / 320 Output Total Balance 320 / 320 Weight 190 lb 11.198 oz Microbiology Reports for the Last 24 Hours: Microbiology 09/29/18 18:30 Sputum - Expectorated Sputum Gram Stain - Final 09/29/18 18:30 Sputum - Expectorated Sputum Sputum Culture - Final Normal Respiratory Ana Lilia - Constitutional no acute distress - *Routine Respiratory Exam Comments: few rales in bases, no wheezes - *Routine Cardiovascular Exam Present: RRR - *Routine Abdominal Exam Present: soft, normoactive bowel sounds. Absent: tenderness, distended - *Routine Extremities Exam Absent: edema Assessment and Plan (1) Pneumonia Current visit: Yes Status: Acute Category: Medical Code(s): J18.9 - Pneumonia, unspecified organism (2) Hypoxia Current visit: Yes Status: Acute Category: Medical Code(s): R09.02 - Hypoxemia (3) Leukocytosis Current visit: Yes Status: Acute Category: Medical Code(s): D72.829 - Elevated white blood cell count, unspecified (4) Renal insufficiency Current visit: Yes Status: Acute Category: Medical Code(s): N28.9 - Disorder of kidney and ureter, unspecified (5) Hyperlipidemia Current visit: Yes Status: Chronic Category: Medical Code(s): E78.5 - Hyperlipidemia, unspecified (6) Hypertension Current visit: No Status: Chronic Category: Medical Code(s): I10 - Essential (primary) hypertension (7) CHF (congestive heart failure) Current visit: Yes Status: Acute Category: Medical Code(s): I50.9 - Heart failure, unspecified (8) GERD (gastroesophageal reflux disease) Current visit: Yes Status: Acute Category: Medical Code(s): K21.9 - Gastro-esophageal reflux disease without esophagitis (9) Hypokalemia Current visit: No Status: Acute Category: Medical Code(s): E87.6 - Hypokalemia - Assessment and plan all Dx Assessment and Plan for all problems:: He is improved and stable for discharge. Will continue on antibiotics and diuretic. F/u in 1 week with repeat CXR as oupt.
--- NOTE | 2018-10-03 22:24 | Discharge Summary ---
General - General Admission date:: 09/29/18 Discharge date: 10/03/18 HPI HPI: Mr. Jeffries is a 78-year-old male who states he has had problems with cough and congestion since May 2018. He has been seen numerous times in the office for bronchitis and has been on cefdinir, Augmentin, and Bactrim. He was seen in the emergency room in August and was found to have a pneumonia on the left side. He was started on Levaquin at that time. The patient states he thought he was feeling better until last night he began coughing up some blood and had some nasal congestion. His states he did vomit last night and became hot and started chilling. He became very shaky as well. He presented to the office of [facility] today for evaluation and was found to be hypoxic with a room air saturation of 87%. His white blood cell count was elevated at 37.8. He was admitted and started on pneumonia protocol and oxygen. Hospital Course Hospital Course: The patient was started on antibiotics, Zofran, and IV fluids at a slow rate. A chest x-ray and echo were ordered as his BNP was elevated. Chest x-ray showed diffuse pneumonic infiltrate throughout the right lung as well as an infiltrate in the left lower lobe. Patient's white count did improve on antibiotics and he appeared more comfortable. He had no further vomiting was able to tolerate a diet. His echo showed an EF of 50-55%. There was mild left ventricular hypertrophy and moderate pulmonary hypertension. There was also mild aortic insufficiency. He was given some Lasix and urinated quite a bit after the Lasix dose. He did have severe heartburn despite receiving his nighttime dose of Pepcid as well as a dose of Mylanta. He was breathing better and had less cough. He had problems with IV access and a PICC line was offered but he refused. Nursing staff was finally able to establish a peripheral IV in his right hand. His white count returned to normal. Lasix was continued orally for diuresis and Protonix was added for his reflux. He was continued on potassium supplementation for hypokalemia. His sputum culture grew only normal mary ann. His IV fluids were discontinued and he was able to get up and out of bed. He felt much better and wanted to go home. He was stable to be discharged home on antibiotics and a diuretic. He will follow-up in 1 week in the office of [facility] and will repeat a chest x-ray on an outpatient basis. Objective Vital signs: Temp Pulse Resp BP Pulse Ox 98.5 F 67 18 132/49 L 90 L 10/03/18 08:00 10/03/18 08:00 10/03/18 08:00 10/03/18 08:00 10/03/18 08:00 Narrative: - Constitutional no acute distress - *Routine HEENT Exam Head: Present: normocephalic Eye: Present: EOMI, PERRL ENT: Present: mucous membranes moist Comments: nose congested - *Routine Neck Exam Present: supple. Absent: lymphadenopathy - *Routine Respiratory Exam Present: rhonchi (worse on the right) - *Routine Cardiovascular Exam Present: RRR - *Routine Abdominal Exam Present: soft, normoactive bowel sounds. Absent: tenderness - *Routine Extremities Exam Absent: cyanosis, clubbing, edema - *Routine Skin Exam Present: warm. Absent: rash - *Routine Neurological Exam Present: alert, oriented X3 Results Labs on day of discharge: Labs from last 24 hours 10/03/18 10/03/18 10/03/18 06:58 06:58 06:58 Sodium 142 Potassium 3.4 L Chloride 103 Carbon Dioxide 30 Anion Gap 12.4 BUN 12 Creatinine 1.09 Estimated Creat Clear 71 Estimated GFR 66 Est GFR ( Amer) 80 Glucose 109 H Calcium 9.2 Total Creatine Kinase 72 CK-MB (CK-2) < 0.5 D CK-MB (CK-2) Rel Index 0.7 Troponin I 0.03 B-Natriuretic Peptide 224 H Preliminary micro results at discharge 09/29/18 12:28 Blood Culture - Preliminary Blood NO GROWTH AFTER 48 HOURS 09/29/18 12:28 Blood Culture - Preliminary Blood NO GROWTH AFTER 48 HOURS DS: Diagnosis - Discharge Diagnosis (1) Pneumonia Status: Acute (2) Hypoxia Status: Acute (3) Leukocytosis Status: Acute (4) Renal insufficiency Status: Acute (5) Hyperlipidemia Status: Chronic (6) Hypertension Status: Chronic (7) CHF (congestive heart failure) Status: Acute (8) GERD (gastroesophageal reflux disease) Status: Acute (9) Hypokalemia Status: Acute Discharge Plan - Patient Discharge Instructions ACTIVITY: Continue current activity DIET: continue same diet Patient Instructions: DI for Pneumonia -- Adult, DI for Hypoxia - Follow up Plan Follow up with: Mohit Perez MD [Primary Care Provider] - 1 week (in [facility]) Disposition: Home, Self-Prison Medications: Home Medications Medication Instructions Recorded Confirmed Type Clopidogrel Bisulfate [Plavix 75mg 75 mg PO DAILY 09/10/18 09/29/18 History Tab] Simvastatin 20 mg PO HS 09/10/18 09/29/18 History Tamsulosin HCl [Flomax 0.4mg 0.4 mg PO BID 09/10/18 09/29/18 History capsule] Fluticasone Propionate 1 spray NOSTRIL-B DAILY 09/29/18 09/29/18 History Lisinopril [Lisinopril 10mg Tab] 15 mg PO BID 09/29/18 09/29/18 History Umeclidinium Brm/Vilanterol Tr 1 puff IH DAILY 09/29/18 09/29/18 History [Anoro Ellipta 62.5-25 Mcg INH] Cimetidine [Tagamet Hb] 200 mg PO BID 09/30/18 09/30/18 History Cefdinir [Omnicef 300mg Capsule] 300 mg PO BID #14 cap 10/03/18 Rx hydroCHLOROthiazide [HCTZ 25mg 25 mg PO DAILY #30 tab 10/03/18 Rx tab] Prescriptions/Medication Reconciliation: New Cefdinir [Omnicef 300mg Capsule] 300 mg PO BID #14 cap hydroCHLOROthiazide [HCTZ 25mg tab] 25 mg PO DAILY #30 tab Continue Simvastatin 20 mg PO HS Lisinopril [Lisinopril 10mg Tab] 15 mg PO BID Fluticasone Propionate 1 spray NOSTRIL-B DAILY Cimetidine [Tagamet Hb] 200 mg PO BID Tamsulosin HCl [Flomax 0.4mg capsule] 0.4 mg PO BID Clopidogrel Bisulfate [Plavix 75mg Tab] 75 mg PO DAILY Umeclidinium Brm/Vilanterol Tr [Anoro Ellipta 62.5-25 Mcg INH] 1 puff IH DAILY Discontinued Nebivolol HCl [Bystolic] 10 mg PO DAILY
== END 2018-10-03 09:49 | disposition home or self-care (01) | DRG 195 ==
LOC: 2ND → OBSVTOIN 11:14
PROVIDERS: ADMIT Family Medicine; ATTEND Family Medicine
CPT/HCPCS: 36415; 71020; 71046; 80048; 80053; 82550; 82553; 83880; 84484; 85007; 85025; 86738; 87040; 87070; 87205; 87275; 87276; 93005; 93306; 94640; 94761; J0456; J2405

== ENCOUNTER → 2018-10-12 12:51 | Outpatient (CLI) | payer MEDICARE, OTHER, SELFPAY ==
--- NOTE | 2018-10-12 13:04 | XR_ITS ---
XR chest 2V HISTORY: Follow-up pneumonia ITS.REASON: F/U PNEUMONIA ORDERING PHYSICIAN: Mohit Perez MD PATIENT AGE: 78 years COMPARISON: 09/29/2018 FINDINGS: Unremarkable cardiovascular structures. Previously described pneumonia has improved. No lobar consolidation or collapse. There are some chronic changes in the left lung base. No acute bony findings. IMPRESSION: No acute finding. Interval improvement in bilateral pneumonia with minimal residual density left lung base which could be due to some atelectasis or fibrosis in the
== END ==
PROVIDERS: PCP Family Medicine; Visit Provider Family Medicine
DX: Z09 Encounter for follow-up examination after completed treatment for conditions other than malignant neoplasm (principal); Z87.01 Personal history of pneumonia (recurrent)
CPT/HCPCS: 71046

== ENCOUNTER → 2019-02-22 12:27 | Outpatient (CLI) | payer MEDICARE, OTHER, SELFPAY ==
--- NOTE | 2019-02-22 12:33 | XR_ITS ---
XR chest 2V HISTORY: Cough and congestion ITS.REASON: PNEUMONIA ORDERING PHYSICIAN: Marylin Lyons APRN PATIENT AGE: 79 years COMPARISON: 10/12/2018 FINDINGS: Cardiomegaly without failure. Increased density right lower lobe consistent with pneumonia. No acute bony findings. IMPRESSION: Right lower lobe pneumonia which has developed since the previous exam
== END ==
PROVIDERS: PCP Family Medicine; Visit Provider Nurse Practitioner
DX: J18.9 Pneumonia, unspecified organism (principal)
CPT/HCPCS: 71046

== ENCOUNTER → 2019-05-11 11:01 | Outpatient (CLI) | payer MEDICARE, OTHER, SELFPAY | PROVIDERS: PCP Nurse Practitioner; Visit Provider Nurse Practitioner | DX: R00.1 Bradycardia, unspecified (principal) | CPT/HCPCS: 93225; 93226 ==

== ENCOUNTER → 2019-08-29 08:19 | Outpatient (CLI) | payer MEDICARE, OTHER, SELFPAY ==
--- NOTE | 2019-08-29 08:25 | US_ITS ---
PROCEDURE: US ABDOMEN LIMITED CLINICAL INDICATION: POSTPRANDIAL NAUDEA,WEIGHT LOSS The right lower quadrant pain COMPARISON: No exams were available for comparison FINDINGS: PANCREAS: Unremarkable. No obvious mass or abnormal fluid collection. No ductal dilatation LIVER: No focal liver lesions demonstrated. Homogeneous echogenicity. No intrahepatic biliary ductal dilatation evident. There is appropriate direction of blood flow within a non dilated portal vein RIGHT KIDNEY: Unremarkable. Normal size and echogenicity. No hydronephrosis GALLBLADDER: There are multiple small stones noted. No gallbladder wall thickening, pericholecystic fluid, or biliary dilatation. Common bile duct is 3 mm. IMPRESSION: Cholelithiasis Dictated by: Sam Landry MD 08/29/2019 19:47 Electronically signed by Sam Landry MD in [place] 08/29/2019 19:47
== END ==
PROVIDERS: PCP Family Medicine; Visit Provider Family Medicine
DX: R11.0 Nausea (principal); R63.4 Abnormal weight loss
CPT/HCPCS: 76705

== ENCOUNTER → 2019-09-06 11:10 | Outpatient (CLI) | payer MEDICARE, OTHER, SELFPAY ==
[2019-09-06 11:58] LABS: Basophils % 0.5 % (0.1-2.0); Eosinophils # 0.1 K/mm3 (0.0-0.4); Eosinophils % 0.7 % (0.1-12.0); Hemoglobin 9.5 g/dL (14.1-18.0); Lymphocytes # 2.6 K/mm3 (0.7-4.5); Lymphocytes % 30.2 % (10-50); Mean Corpuscular HGB Conc 29.5 g/dL (31.8-35.4); Mean Corpuscular Hemoglobin 24.1 pg (27.0-31.2); Mean Corpuscular Volume 81.7 fl (80-94); Mean Platelet Volume 9.5 fl (7.4-10.4); Monocytes # 0.5 K/mm3 (0.1-1.0); Monocytes % 6.2 % (1.7-9.3); Neutrophils # 5.3 K/mm3 (1.8-7.8); Neutrophils % 62.5 % (37.0-80.0); Platelet Count 239 K/mm3 (142-424); Red Blood Count 3.92 M/mm3 (4.60-6.20); Red Cell Distribution Width 14.7 % (11.5-17.5); White Blood Count 8.5 K/mm3 (4.8-10.8)
[2019-09-06 12:50] LABS: Alanine Aminotransferase 16 U/L (21-72); Albumin Level 3.5 g/dL (3.4-5.0); Albumin/Globulin Ratio 1.3 (1.1-1.8); Alkaline Phosphatase 68 U/L (46-116); Anion Gap 12.6 mEq/L (5-15); Aspartate Amino Transferase 16 U/L (15-37); Bilirubin,Total 0.4 mg/dL (0.2-1.0); Blood Urea Nitrogen 12 mg/dL (7-18); Calcium 8.8 mg/dL (8.5-10.1); Carbon Dioxide 26 mmol/L (21.0-32.0); Chloride 111 mmol/L (98-107); Creatinine,Serum 1.27 mg/dL (0.70-1.30); Estimated Glomerular Filt Rate 55 ml/min (>60); GFR (African American) 67 ML/MIN (>60); Globulin 2.8 gm/dl (1.3-3.2); Glucose 99 mg/dL (74-106); Potassium 3.6 mmoL/L (3.5-5.1); Sodium 146 mmol/L (137-145); Total Protein,Serum 6.3 g/dL (6.4-8.2)
== END ==
PROVIDERS: Visit Provider Surgery
DX: J44.9 Chronic obstructive pulmonary disease, unspecified (principal); K80.20 Calculus of gallbladder without cholecystitis without obstruction
CPT/HCPCS: 36415; 80053; 85025

== ENCOUNTER → 2019-09-12 10:50 | Outpatient (CLI) | payer MEDICARE, OTHER, SELFPAY ==
--- NOTE | 2019-09-12 | CA_ITS ---
APPROVED REPORT Exam: Pharmacologic Technologist: Keyana Vaughn Ht: 5 ft 9 in Wt: 174 lbs BSA: 1.95 m2 Indications: Shortness of Breath, Abnormal EKG Medical History Medications: Amlodipine,,,,, Lisinopril,,,,, Hydralazine,,,,, Simvastatin,,,,, Flomax,,,,, Metoclopramide,,,,, ANoro,,,,, Stress Test Details Test: LEXISCAN HR Resting HR: 60 bpm Max Heart Rate (APMHR): 143 bpm Max HR Achieved: 89 bpm Target HR (85% APMHR): 121 bpm % of APMHR: 62 Recovery HR: 60 bpm BP Resting BP: 149.0/48.0 mmHg Max BP: 177.0/54.0 mmHg Recovery BP: 159.0/46.0 mmHg ECG Clinical Exercise duration: 04:01 min Highest Stage Achieved: Exercise capacity: 1.0 METs Stress ECG Conclusion Resting ECG: Electronically paced rhythm Symptoms: None Arrhythmias/Ectopy: Occasional PAC ST-T Changes: No significant changes. Conclusion: Unremarkable Lexiscan stress. Myoview images reported separately. Test Summary REST . . . . . . . Resting REST 10:33 . . 60 . 149/ 48 . . Stage 1 . . . . . . . Myoview Injected Stage 1 01:00 . . 72 . . . . Stage 2 01:00 . . 82 . 130/ 38 . . Stage 3 01:00 . . 64 . 146/ 44 . . Stage 4 01:00 . . 64 . 145/ 51 . . Stage 4 01:01 . . 64 . 145/ 51 . Stop exercise at 04:01 RECOVERY 01:00 . . 76 . . . . RECOVERY 02:00 . . 66 . 177/ 54 . . RECOVERY 03:00 . . 67 . 159/ 46 . . RECOVERY 03:20 . . 63 . 159/ 46 . . Electronically signed by : Sukh Vance, 09/13/2019 05:59:51
--- NOTE | 2019-09-12 10:56 | CA_ITS ---
APPROVED REPORT Energy Administrator: MAXIMILIAN Laterality: Bilateral Study Quality: Adequate Indications: stenosis Risk Factors Hypertension: Hyperlipidemia pacemaker, COPD Surgery/Intervention Endarterectomy: right Doppler Spectral Velocity Analysis ECA (R) 169.10/12.80 cm/s ECA (L) 166.60/18.00 cm/s dICA (R) 105.10/23.10 cm/s dICA (L) 180.10/43.50 cm/s Sarah (R) 117.90/29.50 cm/s Sarah (L) 163.60/40.50 cm/s pICA (R) 132.00/29.50 cm/s pICA (L) 235.60/57.00 cm/s dCCA (R) 132.00/15.40 cm/s dCCA (L) 128.10/17.90 cm/s pCCA (R) 170.40/24.30 cm/s pCCA (L) 166.60/23.10 cm/s Vert (R) 87.10/20.50 cm/s Vert (L) 102.10/21.20 cm/s ICA/CCA 1.00 ICA/CCA 1.40 Findings Duplex evaluation demonstrates 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 Electronically signed by : Nikita Singleton, 09/13/2019 07:20:12
--- NOTE | 2019-09-12 11:04 | NM_ITS ---
APPROVED REPORT Exam: Nuclear Stress Test Indication: SOB, Abnormal EKG, High cholesterol, Pacemaker, Former tobacco use Patient Location: Outpatient Stress Tech: Keyana Vaughn NM Tech:Lamar Barkley, ARRT, RT (R)(N) Ht: 5 ft 9 in Wt: 174 lbs HR: 60 bpm BP: 149/48 mmHg BSA: 1.95 m2 BMI: 25.6 History: SOB, Abnormal EKG, High cholesterol, Pacemaker, Former tobacco use Procedure: Patient received a 0.4 mg of intravenous Lexiscan, resting heart rate 60 bpm, resting blood pressure 149/48 mmHg, with Lexiscan maximum heart rate achived was 85 bpm which is Less than 85 % of the maximum predicted heart rate and blood pressure was 130/38 mmHg. With Lexiscan, patient denied any complaint of chest pain. Electrocardiogram Resting electrocardiogram showed electronically paced rhythm, premature atrial complexes, nonspecific ST-T changes, with Lexiscan there is less than 1.[address] segment depression noted from the baseline EKG. The EKG portion of the Lexiscan Myoview is nondiagnostic. Cardiac Stress and Resting SPECT Images: Cardiac Stress and Resting SPECT images were obtained using technetium 99m Myoview 30.4 mCi stress and 10.18 mCi at rest. Gated SPECT with analysis of segmental wall motion and calculation of the ejection fraction also done. Cardiac stress and resting SPECT images show mild fixed septal defect with normal contractility gated SPECT is likely secondary to soft tissue attenuation, no reversible ischemia seen. Computer derived ejection fraction is over 65% with no regional wall motion abnormality, right ventricle is mildly enlarged with normal contractility. Conclusion: 1. The EKG portion of the Lexiscan Myoview is nondiagnostic. 2. No scintigraphic evidence of reversible ischemia seen, computer derived ejection fraction is over 65% with no regional wall motion abnormality, right ventricle is mildly enlarged with normal contractility. 3. Likely normal Lexiscan Myoview study. Electronically signed by : Sukh Vance, 09/13/2019 06:02:57
== END ==
PROVIDERS: PCP Family Medicine; Visit Provider Internal Medicine Cardiovascular Disease
DX: R06.00 Dyspnea, unspecified; R06.02 Shortness of breath; I65.23 Occlusion and stenosis of bilateral carotid arteries; E78.5 Hyperlipidemia, unspecified; I27.20 Pulmonary hypertension, unspecified; I50.9 Heart failure, unspecified; J44.9 Chronic obstructive pulmonary disease, unspecified; K21.9 Gastro-esophageal reflux disease without esophagitis; Z95.0 Presence of cardiac pacemaker; Z98.890 Other specified postprocedural states
CPT/HCPCS: 78452; 93017; 93880; A9502; J2785

== ENCOUNTER → 2019-10-04 10:02 | Outpatient (CLI) | payer MEDICARE, OTHER, SELFPAY ==
[2019-10-04 10:44] LABS: Basophils % 0.6 % (0.1-2.0); Eosinophils # 0.1 K/mm3 (0.0-0.4); Eosinophils % 0.7 % (0.1-12.0); Hematocrit 33.5 % (42.0-52.0); Hemoglobin 9.7 g/dL (14.1-18.0); Lymphocytes # 1.8 K/mm3 (0.7-4.5); Lymphocytes % 27.6 % (10-50); Mean Corpuscular HGB Conc 28.9 g/dL (31.8-35.4); Mean Corpuscular Hemoglobin 23.2 pg (27.0-31.2); Mean Corpuscular Volume 80.4 fl (80-94); Mean Platelet Volume 8.8 fl (7.4-10.4); Monocytes # 0.4 K/mm3 (0.1-1.0); Monocytes % 5.4 % (1.7-9.3); Neutrophils # 4.3 K/mm3 (1.8-7.8); Neutrophils % 65.7 % (37.0-80.0); Platelet Count 339 K/mm3 (142-424); Red Blood Count 4.17 M/mm3 (4.60-6.20); Red Cell Distribution Width 14.5 % (11.5-17.5); White Blood Count 6.6 K/mm3 (4.8-10.8)
[2019-10-04 10:49] LABS: Alanine Aminotransferase 15 U/L (12-78); Albumin Level 3.9 g/dl (3.5-5.0); Albumin/Globulin Ratio 1.5 (1.1-1.8); Alkaline Phosphatase 67 U/L (38-126); Anion Gap 17.8 mEq/L (5-15); Aspartate Amino Transferase 25 U/L (17-59); Bilirubin,Total 0.4 mg/dl (0.2-1.3); Blood Urea Nitrogen 16 mg/dl (9-20); Calcium 9.7 mg/dl (8.4-10.2); Carbon Dioxide 23 mmol/L (22.0-30.0); Chloride 105 mmol/L (98-107); Estimated Glomerular Filt Rate 65 ml/min (>60); GFR (African American) 79 ML/MIN (>60); Globulin 2.6 g/dL (1.3-3.2); Glucose 100 mg/dl (74-100); Potassium 3.8 mmoL/L (3.5-5.1); Sodium 142 mmol/L (136-145); Total Protein,Serum 6.5 g/dl (6.3-8.2)
== END ==
PROVIDERS: Visit Provider Surgery
DX: K80.10 Calculus of gallbladder with chronic cholecystitis without obstruction (principal)
CPT/HCPCS: 36415; 80053; 85025

== ENCOUNTER 2019-10-04 11:47 | Observation (INO) ==
[2019-10-04 13:26] LABS: C-Reactive Protein 25.1 mg/L (0-4)
[2019-10-04 13:52] LABS: Thyroid Stimulating Hormone 1.28 uIU/mL (0.465-4.68)
--- NOTE | 2019-10-04 14:13 | History & Physical Report ---
*Admission Date: 10/04/19 *Chief complaint: Anorexia, weight loss, weakness *History of present illness: Mr. Jeffries is a 79-year-old white male with history of hypertension, COPD, pulmonary hypertension, sick sinus syndrome status post permanent pacemaker who underwent outpatient laparoscopic cholecystectomy per Dr. Montana about 3 weeks ago. He states he has not felt well since that time. He has persisted with nausea, belching, hiccups, and intermittent vomiting. Appetite has been very poor although seems to be drinking adequate fluids. He denies abdominal pain. He states his bowel movements have been normal. He had routine postop follow-up with Dr. [place] today with these complaints. Outpatient CBC and CMP were fairly unremarkable. Because of his complaints of profound weakness and difficulty getting around at home he was referred to the office of [facility]. On my evaluation, it is noted that he has lost about 30 pounds since last April. He has lost 12 pounds since his surgery. He is being admitted at this time for further evaluation. [facility] History Medical History: Reports:: Carotid Stenosis, Congestive Heart Failure, Chronic Obstructive Pulmonary Disease (COPD), Hyperlipidemia, Hypertension, Internal Pacemaker (For sick sinus syndrome), Kidney Stones Denies:: Cancer, Diabetes Mellitus Type 1, Diabetes Mellitus Type 2, MRSA, Seizures *Have you ever received a pneumonia vaccine?: Yes *Have you received a flu vaccine this season?: Yes Other Medical History: Reports: Other (Sick sinus syndrome, moderate pulmonary hypertension, BPH). Denies: Blood Transfusion Reaction Other Surgeries: Yes: Angiogram, Cholecystectomy, Colonoscopy, EGD, Pacemaker, Other (Carotid endarterectomy) Amputation: No Fractures: No - *Social History Educational Level: Attended High School Smoking Status: Former smoker Tobacco Type: cigarettes # Packs/Day (cigarettes): 1 #Yrs smoked (if former smoker): 25 Alcohol Intake: never Substance Use Type: denies use *Occupational Status:: retired Housing: house Household Members: spouse *Travel in the last 8 weeks: None Family Hx:: No significant family history Review of Systems - Constitutional Reports anorexia, Reports fatigue, Reports lack of energy, Reports weakness, Reports weight loss, Denies chills, Denies fever(s) - Eyes Reports change in vision - ENT Reports dry mouth, Denies dizziness, Denies difficulty swallowing, Denies sore throat - *Cardiovascular Denies chest pain, Denies shortness of breath, Denies irregular heart rhythm - *Respiratory Denies chest congestion, Denies cough - *Gastrointestinal Reports belching, Reports bloating, Reports vomiting, Denies abdominal pain, Denies change in bowel habits, Denies constipation, Denies heartburn, Denies difficulty swallowing, Denies heartburn - *Genitourinary Denies difficulty urinating, Denies urinary frequency - *Musculoskeletal Denies joint pain, Denies muscle cramps - Integumentary/Breasts Denies hair loss, Denies change in skin color - *Neurologic Denies abnormal speech, Denies frequent falls, Denies loss of vision - Psychiatric Denies depression, Denies mood swings - Hematologic/Lymphatic Denies easy bruising - Allergic/Immunologic Denies wheezing Meds Home Medications Medication Instructions Recorded Confirmed Type Clopidogrel Bisulfate [Plavix 75mg 75 mg PO DAILY 09/10/18 10/04/19 History Tab] Simvastatin 20 mg PO HS 09/10/18 10/04/19 History Tamsulosin HCl [Flomax 0.4mg 0.4 mg PO BID 09/10/18 10/04/19 History capsule] lisinopril 10 mg tablet 20 mg PO BID tab 09/08/19 10/04/19 History Hydralazine HCl [Apresoline 10mg 20 mg PO BID 10/04/19 10/04/19 History tablet] Allergies Allergy/AdvReac Type Severity Reaction Status Date / Time No Known Drug Allergies Allergy Unknown Verified 10/04/19 10:46 [NKDA] Exam Vital signs and Labs for Last 24 Hours: Temp Pulse Resp BP Pulse Ox 97.7 F 66 17 125/56 L 98 10/04/19 12:32 10/04/19 12:32 10/04/19 12:32 10/04/19 12:32 10/04/19 12:32 Laboratory Results - last 24 hr 10/04/19 10:06: C-Reactive Protein 25.1 H, TSH 1.28 I & O for Last 24 hours: Intake & Output 10/02/19 10/03/19 10/04/19 10/05/19 11:59 11:59 11:59 11:59 Weight 158 lb 4 oz Narrative: He appears weak. Color slightly pale. No respiratory distress. Weight loss is noted. HEENT shows the cranium to be atraumatic and normocephalic. Sclera conjunctive are clear. Nares are patent. Oropharynx shows slightly dry mucous membranes. Neck is supple with no masses or thyromegaly. Lungs are clear to auscultation. Breath sounds are generally diminished. Heart is regular. Abdomen is soft and nondistended with no unusual masses. There is some mild epigastric and right upper quadrant tenderness. No rebound or guarding. Lower extremities show no edema. Assessment and Plan (1) Anorexia Current visit: Yes Status: Acute Category: Medical Code(s): R63.0 - Anorexia (2) Weight loss Current visit: Yes Status: Acute Category: Medical Code(s): R63.4 - Abnormal weight loss (3) Weakness Current visit: Yes Status: Acute Category: Medical Code(s): R53.1 - Weakness (4) Status post cholecystectomy Current visit: Yes Status: Acute Category: Surgical Code(s): Z90.49 - Acquired absence of other specified parts of digestive tract (5) COPD (chronic obstructive pulmonary disease) Current visit: No Status: Chronic Qualifiers: COPD type: unspecified COPD Qualified Code(s): J44.9 - Chronic obstructive pulmonary disease, unspecified Category: Medical Code(s): J44.9 - Chronic obstructive pulmonary disease, unspecified (6) Hypertension Current visit: No Status: Chronic Qualifiers: Hypertension type: essential hypertension Qualified Code(s): I10 - Essential (primary) hypertension Category: Medical Code(s): I10 - Essential (primary) hypertension (7) Moderate to severe pulmonary hypertension Current visit: No Status: Chronic Category: Medical Code(s): I27.20 - Pulmonary hypertension, unspecified (8) SSS (sick sinus syndrome) Current visit: No Status: Resolved Category: Medical Code(s): I49.5 - Sick sinus syndrome (9) H/O carotid endarterectomy Current visit: No Status: Chronic Category: Surgical Code(s): Z98.890 - Other specified postprocedural states - Assessment and plan all Dx Assessment and Plan for all problems:: The etiology of his anorexia and weight loss is not clear. His cholecystectomy procedure was uneventful. Screening outpatient CBC and CMP were nonrevealing. He is going to be admitted for observation and additional work-up to include further labs, urinalysis, chest x-ray, CT scan of the abdomen. He received IV fluids for gentle hydration.
--- NOTE | 2019-10-04 14:14 | Pharmacy Consult Notes ---
[facility] Pharmacy VTE Monitoring - Patient Demographics Admission date: 10/04/19 Report Date: 10/04/19 Time: 14:14 Allergies/Adverse Reactions: Patient Allergies No Known Drug Allergies [NKDA] Allergy (Unknown, Verified 10/04/19 10:46) Height: 1.75 m Weight: 71.781 kg - VTE Risk Was VTE Risk Assessment Performed: Yes VTE Score: 5 VTE Risk Level: Low Risk Clinical Trial Participant: No - Prophylaxis VTE Prophylaxis Ordered?: Yes Types of VTE Prophylaxis: TEDS Knee High
[2019-10-04 18:24] LABS: Microscopic, Urine URINE MICROSCOPIC (MICROSCOPIC)
[2019-10-04 18:30] LABS: Appearance,Urine CLEAR (Clear); Bilirubin,Urine Negative (Negative); Blood, Urine Negative (Negative); Color,Urine YELLOW (Yellow); Glucose,Urine (UA) Negative (Negative); Ketones,Urine TRACE (Negative); Leukocyte Esterase,Urine Negative (Negative); Protein,Urine Negative (Negative); Specific Gravity, Urine >= 1.030 (1.005-1.030); Urobilinogen,Urine 0.2 EU/dl (0.2)
[2019-10-04 19:18] LABS: Bacteria,Urine Trace /lpf; Squamous Epithelial Cell,Urine Occasional #/hpf (0-5)
[2019-10-05 07:49] LABS: Basophils % 0.4 % (0.1-2.0); Eosinophils % 0.5 % (0.1-12.0); Hematocrit 32.1 % (42.0-52.0); Hemoglobin 9.2 g/dL (14.1-18.0); Lymphocytes # 2.1 K/mm3 (0.7-4.5); Lymphocytes % 30.5 % (10-50); Mean Corpuscular HGB Conc 28.7 g/dL (31.8-35.4); Mean Corpuscular Volume 80.5 fl (80-94); Mean Platelet Volume 8.8 fl (7.4-10.4); Monocytes # 0.4 K/mm3 (0.1-1.0); Monocytes % 6.3 % (1.7-9.3); Neutrophils # 4.2 K/mm3 (1.8-7.8); Neutrophils % 62.2 % (37.0-80.0); Platelet Count 274 K/mm3 (142-424); Red Blood Count 3.99 M/mm3 (4.60-6.20); Red Cell Distribution Width 14.4 % (11.5-17.5); White Blood Count 6.7 K/mm3 (4.8-10.8)
[2019-10-05 08:03] LABS: Calcium 9.1 mg/dl (8.4-10.2)
--- NOTE | 2019-10-05 08:38 | Progress Note ---
Internal Medicine - PN: Subj *Date: 10/05/19 *Time: 08:38 Interval history: He rested fairly well last night. No new complaints. States his stomach is still bothering him and he does not feel like eating. He ate a few bites of eggs this morning. No vomiting. Note that his CT scan is suggesting bilateral lower lobe pulmonary infiltrates but he has no cough, congestion, or fever and his white blood cell count is normal. Exam Vital signs and Labs for Last 24 Hours: Temp Pulse Resp BP Pulse Ox 97.6 F 61 17 124/49 L 97 10/05/19 08:00 10/05/19 08:00 10/05/19 08:00 10/05/19 08:00 10/05/19 08:00 Laboratory Results - last 24 hr 10/04/19 10:06: ESR 26 H 10/04/19 10:06: C-Reactive Protein 25.1 H, TSH 1.28 10/04/19 18:05: Urine Color Yellow, Urine Appearance Clear, Urine pH 6.0, Ur Specific [place] >= 1.030, Urine Protein Negative, Urine Glucose (UA) Negative, Urine Ketones Trace, Urine Blood Negative, Urine Nitrate Positive, Urine Bilirubin Negative, Urine Urobilinogen 0.2, Ur Leukocyte Esterase Negative, Urine WBC 3-5, Ur Squamous Epith Cells Occasional, Urine Bacteria Trace 10/05/19 07:40: WBC 6.7, RBC 3.99 L, Hgb 9.2 L, Hct 32.1 L, MCV 80.5, MCH 23.1 L , MCHC 28.7 L, RDW 14.4, Plt Count 274, MPV 8.8, Neut % (Auto) 62.2, Lymph % (Auto) 30.5, Wright % (Auto) 6.3, Eos % (Auto) 0.5, Baso % (Auto) 0.4, Neut # (Auto) 4.2, Lymph # (Auto) 2.1, Wright # (Auto) 0.4, Eos # (Auto) 0.0, Baso # (Auto) 0.0 10/05/19 07:40: Sodium 138, Potassium 4.0, Chloride 106, Carbon Dioxide 23, Anion Gap 13.0, BUN 16, Creatinine 1.00, Estimated Creat Clear 64, Estimated GFR 72, Est GFR ( Amer) 88, Glucose 90, Calcium 9.1 I & O for Last 24 hours: Intake & Output 10/02/19 10/03/19 10/04/19 10/05/19 11:59 11:59 11:59 11:59 Intake Total 990 / 990 Output Total 300 / 300 Balance 690 / 690 Weight 162 lb 5 oz Narrative: He appears in no distress. Lungs are slightly diminished in bases but otherwise clear. No rales or wheezes. Heart is regular. Abdomen is soft and nondistended with mild upper abdominal tenderness. Assessment and Plan (1) Anorexia Current visit: Yes Status: Acute Category: Medical Code(s): R63.0 - Anorexia (2) Weight loss Current visit: Yes Status: Acute Category: Medical Code(s): R63.4 - Abnormal weight loss (3) Weakness Current visit: Yes Status: Acute Category: Medical Code(s): R53.1 - Weakness (4) Status post cholecystectomy Current visit: Yes Status: Acute Category: Surgical Code(s): Z90.49 - Acquired absence of other specified parts of digestive tract (5) COPD (chronic obstructive pulmonary disease) Current visit: No Status: Chronic Qualifiers: COPD type: unspecified COPD Qualified Code(s): J44.9 - Chronic obstructive pulmonary disease, unspecified Category: Medical Code(s): J44.9 - Chronic obstructive pulmonary disease, unspecified (6) Hypertension Current visit: No Status: Chronic Qualifiers: Hypertension type: essential hypertension Qualified Code(s): I10 - Essential (primary) hypertension Category: Medical Code(s): I10 - Essential (primary) hypertension (7) Moderate to severe pulmonary hypertension Current visit: No Status: Chronic Category: Medical Code(s): I27.20 - Pulmonary hypertension, unspecified (8) SSS (sick sinus syndrome) Current visit: No Status: Resolved Category: Medical Code(s): I49.5 - Sick sinus syndrome (9) H/O carotid endarterectomy Current visit: No Status: Chronic Category: Surgical Code(s): Z98.890 - Other specified postprocedural states (10) Pneumonia Current visit: Yes Status: Acute Category: Medical Code(s): J18.9 - Pneumonia, unspecified organism - Assessment and plan all Dx Assessment and Plan for all problems:: Labs are unremarkable. CT scan of the abdomen shows nothing acute although incidentally shows bilateral lower lobe infiltrates in his lungs consistent with pneumonia however clinically he does not present with cough, congestion, or fever. We will try to obtain a sputum culture with nebulizers and start empiric antibiotics today pending cultures.
[2019-10-06 08:22] VITALS: BP 154/53
--- NOTE | 2019-10-06 08:32 | Progress Note ---
Internal Medicine - PN: Subj *Date: 10/06/19 *Time: 08:16 Interval history: He had a couple of good bowel movements last night. One tested heme positive. He states his stomach feels better after the bowel movements. He rested fairly well. He ate a good breakfast this morning. Again denies cough, chest congestion, or chest pain. He is eager to go home. Exam Vital signs and Labs for Last 24 Hours: Temp Pulse Resp BP Pulse Ox 98.9 F 74 16 154/53 H 96 10/06/19 08:00 10/06/19 08:00 10/06/19 08:00 10/06/19 08:00 10/06/19 08:00 Laboratory Results - last 24 hr 10/04/19 21:40: Stool Occult Blood Positive A I & O for Last 24 hours: Intake & Output 10/03/19 10/04/19 10/05/19 10/06/19 11:59 11:59 11:59 11:59 Intake Total 990 / 990 1959 Output Total 300 / 300 Balance 690 / 690 1959 Weight 162 lb 5 oz 166 lb Narrative: He appears to feel better. Color is normal. Lungs are clear to auscultation. Abdomen is soft and nondistended with no tenderness. Extremities no edema. Assessment and Plan (1) Anorexia Status: Acute Category: Medical Code(s): R63.0 - Anorexia (2) Weight loss Status: Acute Category: Medical Code(s): R63.4 - Abnormal weight loss (3) Weakness Status: Acute Category: Medical Code(s): R53.1 - Weakness (4) Status post cholecystectomy Status: Acute Category: Surgical Code(s): Z90.49 - Acquired absence of other specified parts of digestive tract (5) COPD (chronic obstructive pulmonary disease) Status: Chronic Qualifiers: COPD type: unspecified COPD Qualified Code(s): J44.9 - Chronic obstructive pulmonary disease, unspecified Category: Medical Code(s): J44.9 - Chronic obstructive pulmonary disease, unspecified (6) Hypertension Status: Chronic Qualifiers: Hypertension type: essential hypertension Qualified Code(s): I10 - Essential (primary) hypertension Category: Medical Code(s): I10 - Essential (primary) hypertension (7) Moderate to severe pulmonary hypertension Status: Chronic Category: Medical Code(s): I27.20 - Pulmonary hypertension, unspecified (8) SSS (sick sinus syndrome) Status: Resolved Category: Medical Code(s): I49.5 - Sick sinus syndrome (9) H/O carotid endarterectomy Status: Chronic Category: Surgical Code(s): Z98.890 - Other specified postprocedural states (10) Pneumonia Status: Acute Category: Medical Code(s): J18.9 - Pneumonia, unspecified organism (11) Heme positive stool Status: Acute Category: Medical Code(s): R19.5 - Other fecal abnormalities - Assessment and plan all Dx Assessment and Plan for all problems:: He seems to feel better after having a bowel movement last night. He ate a good breakfast. Clinically does not appear to have significant pneumonia despite the findings on his CT scan. He is stable for discharge home. We will continue a course of antibiotics and also start him on Remeron as an appetite stimulant. He will follow-up in the office in 1 week.
--- NOTE | 2019-10-06 13:58 | Discharge Summary ---
General - General Admission date:: 10/04/19 <Mohit Perez - 10/07/19 11:58> 10/04/19 <ShwetaSadie - 10/06/19 13:59> Discharge date: 10/06/19 <ShwetaJameela - 10/06/19 13:59> HPI HPI: Mr. Jeffries is a 79-year-old white male with history of hypertension, COPD, pulmonary hypertension, sick sinus syndrome status post permanent pacemaker who underwent outpatient laparoscopic cholecystectomy per Dr. Montana about 3 weeks ago. He states he has not felt well since that time. He has persisted with nausea, belching, hiccups, and intermittent vomiting. Appetite has been very poor although seems to be drinking adequate fluids. He denies abdominal pain. He states his bowel movements have been normal. He had routine postop follow-up with Dr. Montana today with these complaints. Outpatient CBC and CMP were fairly unremarkable. Because of his complaints of profound weakness and difficulty getting around at home he was referred to the office of [facility]. On my evaluation, it is noted that he has lost about 30 pounds since last April. He has lost 12 pounds since his surgery. He is being admitted at this time for further evaluation. <ShwetaSadie - 10/06/19 13:59> Hospital Course Hospital Course: Patient had a chest x-ray showing COPD and possible pulmonary arterial hypertension. He had an abdominal and pelvic CT showing postsurgical changes from his recent colon cholecystectomy but nothing acute. It did reveal a patchy groundglass density in the right middle lobe and left lower lobe consistent with a possible pneumonia. The patient however had no cough, congestion, or fever and his white blood cell count was normal. He was not felt to have a pneumonia, but due to the radiographic speculation, he was started empirically on antibiotics and a sputum culture was ordered. His initial CBC and CMP were nonrevealing for the cause of his anorexia and weight loss. He was started on IV fluids for gentle hydration. The patient had a few bowel movements and one tested heme positive. He stated his stomach felt better after the bowel movements. He was able to eat a good breakfast and wanted to go home. Clinically he did not appear to have significant pneumonia despite the findings on his CT scan. It was felt he could be discharged on a course of antibiotics as well as on Remeron as an appetite stimulant. He will follow-up in the office in 1 week. <ShwetaSadie - 10/06/19 13:59> Objective Vital signs: Temp Pulse Resp BP Pulse Ox 98.9 F 74 16 154/53 H 96 10/06/19 08:00 10/06/19 08:00 10/06/19 08:00 10/06/19 08:00 10/06/19 08:00 <Mohit Perez - 10/07/19 11:58> Temp Pulse Resp BP Pulse Ox 98.9 F 74 16 154/53 H 96 10/06/19 08:00 10/06/19 08:00 10/06/19 08:00 10/06/19 08:00 10/06/19 08:00 <Sadie Rock - 10/06/19 13:59> Narrative: He appears to feel better. Color is normal. Lungs are clear to auscultation. Abdomen is soft and nondistended with no tenderness. Extremities no edema. <Sadie Rock 10/06/19 13:59> Results Labs on day of discharge: Labs from last 24 hours 10/04/19 21:40 Stool Occult Blood Positive A <Sadie Rock - 10/06/19 13:59> DS: Diagnosis - Discharge Diagnosis (1) Anorexia Status: Acute (2) Weight loss Status: Acute (3) Weakness Status: Acute (4) Status post cholecystectomy Status: Acute (5) COPD (chronic obstructive pulmonary disease) Status: Chronic (6) Hypertension Status: Chronic (7) Moderate to severe pulmonary hypertension Status: Chronic (8) SSS (sick sinus syndrome) Status: Resolved (9) H/O carotid endarterectomy Status: Chronic (10) Pneumonia Status: Acute (11) Heme positive stool Status: Acute <Sadie Rock - 10/06/19 13:53> (1) Anorexia Status: Acute (2) Weight loss Status: Acute (3) Weakness Status: Acute (4) Status post cholecystectomy Status: Acute (5) COPD (chronic obstructive pulmonary disease) Status: Chronic (6) Hypertension Status: Chronic (7) Moderate to severe pulmonary hypertension Status: Chronic (8) SSS (sick sinus syndrome) Status: Resolved (9) H/O carotid endarterectomy Status: Chronic (10) Pneumonia Status: Acute (11) Heme positive stool Status: Acute <Mohit Perez - 10/07/19 11:58> Discharge Plan - Patient Discharge Instructions ACTIVITY: Continue current activity <Sadie Rock - 10/06/19 13:59> DIET: continue same diet <Sadie Rock - 10/06/19 13:59> Patient Instructions: DI for Poor Appetite <Mohit Perez - 10/07/19 11:58> Forms: <Mohit Perez - 10/07/19 11:58> - Follow up Plan Follow up with: Mohit Perez MD [Primary Care Provider] - 10/12/19 (in [facility]) <Mohit Perez - 10/07/19 11:58> Disposition: Home, Self-Care <Mohit Perez - 10/07/19 11:58> Home Medications: Home Medications Medication Instructions Recorded Confirmed Type Clopidogrel Bisulfate [Plavix 75mg 75 mg PO DAILY 09/10/18 10/04/19 History Tab] Simvastatin 20 mg PO HS 09/10/18 10/04/19 History Tamsulosin HCl [Flomax 0.4mg 0.4 mg PO BID 09/10/18 10/04/19 History capsule] lisinopril 10 mg tablet 20 mg PO BID tab 09/08/19 10/04/19 History Hydralazine HCl [Apresoline 10mg 20 mg PO BID 10/04/19 10/04/19 History tablet] Mirtazapine [Remeron] 15 mg PO DAILY #30 tab 10/06/19 Rx cefUROXime axetiL [Ceftin 500mg 500 mg PO BID #14 tab 10/06/19 Rx Tab (GEQ)] <Mohit Perez - 10/07/19 11:58> Prescriptions/Medication Reconciliation: New Mirtazapine [Remeron] 15 mg PO DAILY #30 tab cefUROXime axetiL [Ceftin 500mg Tab (GEQ)] 500 mg PO BID #14 tab Continued lisinopril 10 mg tablet 20 mg PO BID tab Simvastatin 20 mg PO HS Hydralazine HCl [Apresoline 10mg tablet] 20 mg PO BID Tamsulosin HCl [Flomax 0.4mg capsule] 0.4 mg PO BID Clopidogrel Bisulfate [Plavix 75mg Tab] 75 mg PO DAILY <Mohit Robledo - 10/07/19 11:58> - Problem Reconciliation Problems Reviewed?: Yes <Mohit Perez - 10/07/19 11:58> Yes <Sadie Rock - 10/06/19 13:59> - Additional Information Additional Information: Concur with plan for discharge as outlined above. <Mohit Perez - 10/07/19 11:58>
== END 2019-10-06 10:31 | disposition home or self-care (01) ==
LOC: 2ND
PROVIDERS: ADMIT Family Medicine; ATTEND Family Medicine
CPT/HCPCS: 36415; 71020; 71046; 74176; 80048; 80053; 81001; 82272; 84443; 85025; 85651; 86140; 94640; G0328; G0378; J0456

== ENCOUNTER → 2019-10-19 08:43 | Outpatient (CLI) | payer MEDICARE, OTHER, SELFPAY ==
--- NOTE | 2019-10-19 08:50 | XR_ITS ---
PROCEDURE: XR CHEST 2V CLINICAL HISTORY: PNEUMONIA DUE TO INFECTIOUS ORGANISM COMPARISON: CHESTW CT chest w con from 08/02/2018 CXR2V XR chest 2V from 10/12/2018 XR CHEST PORTABLE from 06/07/2019 XR CHEST 2V from 10/04/2019 CT ABDOMEN PELVIS WO CON from 10/04/2019 FINDINGS: Bipolar pacemaker is present from left subclavian approach. Normal heart size. Calcification noted at the aortic COPD with chronic changes in the lung bases. No lobar consolidation or collapse. No acute bony abnormalities. IMPRESSION: COPD with chronic changes, no acute finding Dictated by: Sam Landry MD 10/19/2019 09:20 Electronically signed by Sam Landry MD in [place] 10/19/2019 09:20
== END ==
PROVIDERS: PCP Family Medicine; Visit Provider Nurse Practitioner
DX: J18.9 Pneumonia, unspecified organism (principal)
CPT/HCPCS: 71046

== ENCOUNTER 2019-11-05 09:35 | Emergency (ER) | payer MEDICARE, OTHER, SELFPAY ==
[2019-11-05 09:58] VITALS: BP 126/53; PULSE 97; RESP 20; TEMP 36.6; O2SAT 91; BMI 22.9
--- NOTE | 2019-11-05 09:58 | ECG_ITS ---
APPROVED REPORT Exam: Resting ECG HR:61 bpm ECG Measurements Heart Rate 61 AXES RI 80 P QRSd 134 QRS 76 QT 464 T 50 QTc 467 <Conclusion> Sinus rhythm with short RI Right bundle branch block Abnormal ECG Electronically signed by : Nik Avelar, 11/05/2019 21:00:14
--- NOTE | 2019-11-05 09:58 | XR_ITS ---
PROCEDURE: XR CHEST AP CLINICAL HISTORY: weak, short of breath COMPARISON: CHESTW CT chest w con from 08/02/2018 XR CHEST PORTABLE from 06/07/2019 XR CHEST 2V from 10/04/2019 XR CHEST 2V from 10/19/2019 FINDINGS: The cardiomediastinal silhouette and pulmonary vascularity are within normal limits. The lung pastrana are well expanded. There is slightly prominent bronchovascular markings seen through the left heart border not definitely present on the recent chest film of 10/19/2019. Minimal atelectasis or possibly a developing pneumonic infiltrate cannot be definitely excluded. Would probably be helpful to obtain an upright PA and lateral chest The lungs are clear without infiltrates, suspicious nodules, or pleural effusions. For better evaluation if pneumonia is suspected clinically. The left upper lung field and right lung pastrana are clear. The left-sided cardiac pacemaker with dual chamber electrodes are again noted. IMPRESSION: Questionable pneumonic infiltrate versus atelectasis left lower lobe, see discussion above, no other significant abnormality noted Dictated by: Dr. Javad Montalvo MD 11/05/2019 12:[address] Javad Montalvo MD in [place] 11/05/2019 12:15
--- NOTE | 2019-11-05 09:59 | US_ITS ---
PROCEDURE: US ABDOMEN LIMITED CLINICAL INDICATION: RUQ pain, CCY, weakness COMPARISON: US ABDOMEN LIMITED from 08/29/2019 FINDINGS: PANCREAS: Unremarkable. No obvious mass or abnormal fluid collection. No ductal dilatation LIVER: No focal liver lesions demonstrated. Homogeneous echogenicity. No intrahepatic biliary ductal dilatation evident. There is appropriate direction of blood flow within a non dilated portal vein RIGHT KIDNEY: The right kidney measures 10.3 x 4.8 by 6.7 cm and appears sonographically normal. GALLBLADDER: Post cholecystectomy since the previous ultrasound exam IMPRESSION: Unremarkable limited abdominal ultrasound as detailed above post recent cholecystectomy Dictated by: Dr. Javad Montalvo MD 11/05/2019 15:[address] Javad Montalvo MD in [place] 11/05/2019 15:26
[2019-11-05 10:06] VITALS: BMI 22.9
--- NOTE | 2019-11-05 10:11 | HMH.EDGENADL ---
ED Disposition Clinical Impression: Post-cholecystectomy syndrome, Weakness, Anorexia, Weight loss Disposition: Home, Self-Care Condition on Discharge: Fair Instructions: DI for Cholecystectomy, DI for Dyspepsia Additional Instructions: You have been evaluated for upper quadrant abdominal pain, nausea, weakness. It is very important that you try to eat multiple small meals throughout the day, avoid fat. To take Boost supplements. Take all medications as prescribed including PPI, simethicone, appetite stimulant. Please follow-up with your primary care doctor as soon as available, tomorrow. Follow-up with your surgeon. You likely would benefit from an endoscopy and HIDA scan. Return to the emergency department for any new or worsening symptoms, vomiting, pain, other concerns. Referrals: Mohit Perez MD [Primary Care Provider] - Time of Disposition: 12:50 - Critical Care Critical Care Time: No Attestation: On 11/05/19, the high probability of a clinically significant, sudden or life threatening deterioration of the following system(s) required my full and direct attention, intervention and personal management. The time I documented below is in addition to time spent performing reported procedures but includes the following listed in this critical care notation. Medical Decision Making - Julian Inquiry Pt receiving controlled substance: No Vital Signs: 11/05/19 09:58 11/05/19 11:37 Temperature 97.8 F 98 F Temperature Source Oral Oral Pulse Rate [Left Radial] 97 H 62 Respiratory Rate 20 16 Blood Pressure [Right Arm] 126/53 L 107/54 L Blood Pressure Mean [Right Arm] 77 71 Blood Pressure Position [Right Arm] Sitting Sitting 02 Sat by Pulse Oximetry 91 L 98 Oxygen Delivery Method Room Air Nasal Cannula Oxygen Flow Rate (LPM) 2 - Lab Data Lab Results 11/05/19 10:05: WBC 8.4, RBC 4.48 L, Hgb 10.3 L, Hct 35.4 L, MCV 79.1 L, MCH 23.0 L, MCHC 29.1 L, RDW 16.4, Plt Count 225, MPV 8.4, Neut % (Auto) 71.1, Lymph % (Auto) 22.8, [place] % (Auto) 5.2, Eos % (Auto) 0.4, Baso % (Auto) 0.6, Neut # (Auto) 6.0, Lymph # (Auto) 1.9, [place] # (Auto) 0.4, Eos # (Auto) 0.0, Baso # (Auto) 0.1 11/05/19 10:05: Sodium 136, Potassium 3.7, Chloride 102, Carbon Dioxide 20 L, Anion Gap 17.7 H, BUN 18, Creatinine 1.20, Estimated Creat Clear 53, Estimated GFR 59, Est GFR ( Amer) 71, Glucose 98, Calcium 9.7, Total Bilirubin 0.5, AST 31, ALT 21, Alkaline Phosphatase 66, Total Creatine Kinase 33 L, Troponin I 0.01, Total Protein 6.6, Albumin 3.8, Globulin 2.8, Albumin/Globulin Ratio 1.4, Lipase 114 11/05/19 10:05: Lactate 1.2 11/05/19 10:05: NT-Pro-B Natriuret Pep 295 11/05/19 11:37: Urine Color Yellow, Urine Appearance Clear, Urine pH 5.5, Ur Specific [place] >= 1.030, Urine Protein Negative, Urine Glucose (UA) Negative, Urine Ketones Trace, Urine Blood Negative, Urine Nitrate Negative, Urine Bilirubin Negative, Urine Urobilinogen 0.2, Ur Leukocyte Esterase Negative, Urine RBC Occasional, Urine WBC None, Ur Squamous Epith Cells Occasional, Urine Bacteria None Result diagrams: 11/05/19 10:05 11/05/19 10:05 Orders (Tests/Meds): ORDERS Category Date Time Status US RUQ [US abdomen limited] Stat Exams 11/05/19 09:59 Taken Troponin I Q3H Lab 11/05/19 13:00 Ordered Troponin I Q3H Lab 11/05/19 16:00 Ordered EKG Request [ECG Request by /Yoel] Stat Y 11/05/19 09:58 Ordered Medical Decision Narrative: In summary this is a 79-year-old male with history of COPD, CHF, recent cholecystectomy presenting to the emergency department with generalized weakness and anorexia. Patient is overall well-appearing on arrival to the emergency department. Vital signs are stable. Differential diagnoses include gastric dysmotility, retained gallstone, hepatobiliary dysfunction, dehydration, acute kidney injury, electrolyte derangements, ACS, cardiac arrhythmia. Plan to obtain CBC, CMP, lipase, lactate, urinalysis, chest x-ray, EKG, right uppe
[2019-11-05 10:22] LABS: Basophils # 0.1 K/mm3 (0-0.2); Basophils % 0.6 % (0.1-2.0); Eosinophils % 0.4 % (0.1-12.0); Hematocrit 35.4 % (42.0-52.0); Hemoglobin 10.3 g/dL (14.1-18.0); Lymphocytes # 1.9 K/mm3 (0.7-4.5); Lymphocytes % 22.8 % (10-50); Mean Corpuscular HGB Conc 29.1 g/dL (31.8-35.4); Mean Corpuscular Volume 79.1 fl (80-94); Mean Platelet Volume 8.4 fl (7.4-10.4); Monocytes # 0.4 K/mm3 (0.1-1.0); Monocytes % 5.2 % (1.7-9.3); Neutrophils % 71.1 % (37.0-80.0); Platelet Count 225 K/mm3 (142-424); Red Blood Count 4.48 M/mm3 (4.60-6.20); Red Cell Distribution Width 16.4 % (11.5-17.5); White Blood Count 8.4 K/mm3 (4.8-10.8)
[2019-11-05 10:25] LABS: Chloride 102 mmol/L (98-107)
[2019-11-05 10:26] LABS: Potassium 3.7 mmoL/L (3.5-5.1); Sodium 136 mmol/L (136-145)
[2019-11-05 10:28] LABS: Alanine Aminotransferase 21 U/L (12-78); Alkaline Phosphatase 66 U/L (38-126); Anion Gap 17.7 mEq/L (5-15); Aspartate Amino Transferase 31 U/L (17-59); Bilirubin,Total 0.5 mg/dl (0.2-1.3); Blood Urea Nitrogen 18 mg/dl (9-20); Carbon Dioxide 20 mmol/L (22.0-30.0); Creatine Kinase 33 U/L (55-170); Creatinine Clearance Estimated 53 mL/min (50-200); Estimated Glomerular Filt Rate 59 ml/min (>60); GFR (African American) 71 ML/MIN (>60)
[2019-11-05 10:29] LABS: Albumin Level 3.8 g/dl (3.5-5.0); Albumin/Globulin Ratio 1.4 (1.1-1.8); Calcium 9.7 mg/dl (8.4-10.2); Globulin 2.8 g/dL (1.3-3.2); Glucose 98 mg/dl (74-100); Lipase 114 U/L (23-300); Total Protein,Serum 6.6 g/dl (6.3-8.2)
[2019-11-05 10:30] LABS: Lactic Acid 1.2 mmol/L (0.7-2.1)
[2019-11-05 10:37] LABS: NT Pro Brain Natriuretic Pep. 295 pg/mL (0-450)
[2019-11-05 10:42] LABS: Troponin I 0.01 ng/ml (0.00-0.034)
[2019-11-05 11:37] VITALS: BP 107/54; PULSE 62; RESP 16; TEMP 36.6; O2SAT 98
[2019-11-05 11:43] LABS: Microscopic, Urine URINE MICROSCOPIC (MICROSCOPIC)
[2019-11-05 11:47] LABS: Appearance,Urine CLEAR (Clear); Blood, Urine Negative (Negative); Color,Urine YELLOW (Yellow); Glucose,Urine (UA) Negative (Negative); Ketones,Urine TRACE (Negative); Leukocyte Esterase,Urine Negative (Negative); Nitrate,Urine Negative (Negative); PH,Urine 5.5 (5.0-8.5); Protein,Urine Negative (Negative); Specific Gravity, Urine >= 1.030 (1.005-1.030); Urobilinogen,Urine 0.2 EU/dl (0.2)
[2019-11-05 11:52] LABS: Bilirubin,Urine Negative (Negative); RBC,Urine Occasional #/hpf (0-3); Squamous Epithelial Cell,Urine Occasional #/hpf (0-5)
--- NOTE | 2019-11-05 12:45 | PC.NURSE ---
Pt rings call ivy and states he is ready to get out of here. aware.
[2019-11-05 13:11] VITALS: BP 124/64; PULSE 62; RESP 18; TEMP 36.6; O2SAT 98
== END 2019-11-05 13:14 | disposition home or self-care (01) ==
PROVIDERS: Emergency Provider Emergency Medicine; PCP Family Medicine
DX: K91.5 Postcholecystectomy syndrome (principal); F50.89 Other specified eating disorder; Z68.23 Body mass index [BMI] 23.0-23.9, adult; Z79.899 Other long term (current) drug therapy; Z86.79 Personal history of other diseases of the circulatory system; J44.9 Chronic obstructive pulmonary disease, unspecified; E78.5 Hyperlipidemia, unspecified; I10 Essential (primary) hypertension; Z95.0 Presence of cardiac pacemaker; Z87.442 Personal history of urinary calculi; Z90.49 Acquired absence of other specified parts of digestive tract; Z87.891 Personal history of nicotine dependence
CPT/HCPCS: 71045; 76705; 80053; 81001; 82550; 83605; 83690; 83880; 84484; 85025; 93005; 96365; 99283

== ENCOUNTER 2019-11-09 11:08 | Observation (INO) | payer MEDICARE, OTHER, SELFPAY ==
[2019-11-09 11:36] VITALS: BP 113/53; PULSE 65; RESP 16; TEMP 36.4; O2SAT 97; BMI 20.8
--- NOTE | 2019-11-09 12:39 | XR_ITS ---
PROCEDURE: XR CHEST PORTABLE CLINICAL HISTORY: AMS Altered mental status,, heart disease, COPD COMPARISON: CHESTW CT chest w con from 08/02/2018 XR CHEST 2V from 10/04/2019 XR CHEST 2V from 10/19/2019 XR CHEST AP from 11/05/2019 FINDINGS: The cardiomediastinal silhouette and pulmonary vascularity are within normal limits. Bipolar pacemaker is present from left subclavian approach Previously noted opacification in the left lung base has improved. There is some new atelectasis or infiltrate in the right lung base medially. IMPRESSION: Mixed response with improved left basilar airspace disease with new atelectasis or infiltrate in the right lung base Dictated by: Sam Landry MD 11/09/2019 15:47 Electronically signed by Sam Landry MD in [place] 11/09/2019 15:47
--- NOTE | 2019-11-09 13:07 | HMH.PHAVTE ---
[facility] Pharmacy VTE Monitoring - Patient Demographics Admission date: 11/09/19 Report Date: 11/09/19 Time: 13:07 Allergies/Adverse Reactions: Patient Allergies No Known Drug Allergies [NKDA] Allergy (Unknown, Verified 10/18/19 08:58) Height: 1.78 m Weight: 65.799 kg - Prophylaxis VTE Prophylaxis Ordered?: Yes Types of VTE Prophylaxis: TEDS Knee High Location of Applied Device: Bilateral Lower Extremeties - VTE Diagnosis Confirmed Treatment or plan recommended: Continue Current Treatment
--- NOTE | 2019-11-09 13:07 | HMH.PHAINT ---
MEDICATION RECONCILIATION COMPLETED ON PATIENT USING EXTERNAL FILL HISTORY FROM PHARMACY. -AKIRA MOURA, NIAD
[2019-11-09 14:30] LABS: Basophils % 0.3 % (0.1-2.0); Eosinophils % 0.1 % (0.1-12.0); Hematocrit 35.7 % (42.0-52.0); Hemoglobin 10.5 g/dL (14.1-18.0); Lymphocytes # 1.8 K/mm3 (0.7-4.5); Mean Corpuscular HGB Conc 29.3 g/dL (31.8-35.4); Mean Corpuscular Volume 78.6 fl (80-94); Mean Platelet Volume 9.2 fl (7.4-10.4); Monocytes # 0.4 K/mm3 (0.1-1.0); Monocytes % 3.4 % (1.7-9.3); Neutrophils # 10.4 K/mm3 (1.8-7.8); Neutrophils % 82.2 % (37.0-80.0); Platelet Count 287 K/mm3 (142-424); Red Blood Count 4.54 M/mm3 (4.60-6.20); Red Cell Distribution Width 16.1 % (11.5-17.5); White Blood Count 12.7 K/mm3 (4.8-10.8)
--- NOTE | 2019-11-09 14:50 | HMH.HP ---
*Admission Date: 11/09/19 <Sadie Rock - 11/09/19 15:07> *Chief complaint: weakness <Sadie Rock - 11/09/19 15:07> *History of present illness: Mr. Jeffries is a 79-year-old male with a history of hypertension, hyperlipidemia, carotid artery disease, severe COPD, sick sinus syndrome, and pulmonary hypertension who just recently had his gallbladder removed on 09/15/2019. Since this time his health is declined. He was seen in the office of [facility] at the beginning of September and had been vomiting since his surgery as well as having fatigue and weight loss. He was admitted at that time for evaluation and treatment. He received IV fluids and a repeat CT of the abdomen showed nothing acute, but did show bibasilar infiltrates consistent with a possible early pneumonia, even though he was completely asymptomatic and had a normal white blood cell count. While he was in the hospital, he began to eat a little bit better and was discharged home on oral antibiotics and Remeron for appetite stimulation. After going home, he began sleeping for numerous hours straight, therefore his Remeron was discontinued. He continued to lose weight and feel weak. He had persistent nausea and he was seen in the office on 10/12/2019 and was started on some Megace. He also had a heme positive stool while in the hospital and was referred to Dr. Montana. It was felt he may need an endoscopy. He completed his initial antibiotics and continued to have weakness and nausea as well as poor appetite. He had also developed a cough and some shortness of breath and was started on doxycycline for possible pneumonia. He had a chest x-ray and it showed COPD with nothing acute. He did see Dr. Montana but did not feel the appointment was beneficial. He was started on Nexium and simethicone. His blood pressures began running low and his amlodiopine and hydralazine were discontinued. His lisinopril dose was decreased as well. He was anemic and his iron was low, therefore he was started on iron. He became so weak he was seen in the emergency room on 11/05/2019 with a fairly unremarkable work-up. He followed up in the office of [facility] today still complaining of generalized weakness and also a few episodes of confusion. His stated he was having poor oral intake. His blood pressure was low at 98/58 and his mental status was altered in the office. There were no obvious focal neurologic findings on his exam, but Dr. Perez felt he was likely hypovolemic. His white blood cell count was elevated with no obvious source of infection. He was admitted for further evaluation and treatment. <Sadie Rock 11/09/19 15:07> [facility] History I have reviewed the patient's past medical history: Yes <Sadie Rock 11/09/19 15:07> Medical History: Reports:: Carotid Stenosis, Congestive Heart Failure, Chronic Obstructive Pulmonary Disease (COPD), Hyperlipidemia, Hypertension, Internal Pacemaker, Kidney Stones Denies:: Cancer, Diabetes Mellitus Type 1, Diabetes Mellitus Type 2, MRSA, Seizures <Sadie Rock 11/09/19 15:07> *Have you ever received a pneumonia vaccine?: Yes <Sadie Rock 11/09/19 15:07> *Have you received a flu vaccine this season?: Yes <Sadie Rock 11/09/19 15:07> Other Medical History: Reports: Other (Bladder tumor, sick sinus syndrome, pulmonary hypertension). Denies: Blood Transfusion Reaction <Sadie Rock 11/09/19 15:07> Other Surgeries: Yes: Angiogram, Cholecystectomy, Colonoscopy, EGD, Pacemaker, Other (Carotid endarterectomy, transurethral resection of bladder tumor) <Sadie Rock 11/09/19 15:07> Amputation: No <Sadie Rock 11/09/19 15:07> Fractures: No <Sadie Rock 11/09/19 15:07> - *Social History Educational Level: Attended High School <Sadie Rock 11/09/19 15:07> Smoking Status: Former smoker <Sadie Rock 11/09/19 15:07> Tobacco Type: cigarettes <Sadie Rock 11/09/19 15:07> # Packs/Day (cigarettes): 1
[2019-11-09 15:03] LABS: Alanine Aminotransferase 22 U/L (12-78); Albumin Level 4.1 g/dl (3.5-5.0); Albumin/Globulin Ratio 1.6 (1.1-1.8); Alkaline Phosphatase 63 U/L (38-126); Anion Gap 15.2 mEq/L (5-15); Aspartate Amino Transferase 31 U/L (17-59); Bilirubin,Total 0.6 mg/dl (0.2-1.3); Blood Urea Nitrogen 22 mg/dl (9-20); Calcium 10.3 mg/dl (8.4-10.2); Carbon Dioxide 24 mmol/L (22.0-30.0); Chloride 100 mmol/L (98-107); Creatine Kinase 35 U/L (55-170); Creatinine Clearance Estimated 48 mL/min (50-200); Estimated Glomerular Filt Rate 59 ml/min (>60); GFR (African American) 71 ML/MIN (>60); Globulin 2.6 g/dL (1.3-3.2); Glucose 103 mg/dl (74-100); Potassium 4.2 mmoL/L (3.5-5.1); Sodium 135 mmol/L (136-145); Total Protein,Serum 6.7 g/dl (6.3-8.2)
[2019-11-09 15:16] LABS: CKMB Relative Index 2.3 U/L (0-4.0); Creatine Kinase MB 0.8 ng/ml (0.0-2.03); Troponin I 0.01 ng/ml (0.00-0.034)
[2019-11-09 15:34] LABS: Thyroid Stimulating Hormone 1.37 uIU/mL (0.465-4.68)
[2019-11-09 16:00] VITALS: BP 117/63; PULSE 63; RESP 16; TEMP 36.7; O2SAT 97
--- NOTE | 2019-11-09 17:38 | PC.NURSE ---
patient has done well this shift. confusion noted but is becoming more talkative as shift progresses. no complaints. appears pale. has ate decent this shift. vitals stable will continue to monitor. still has had no bm or urine.
[2019-11-09 20:00] VITALS: BP 104/50; PULSE 60; RESP 16; TEMP 36.5; O2SAT 97
--- NOTE | 2019-11-09 21:16 | PC.NURSE ---
Pt given a sputum cup and instructed how to give a sputum specimen. Verbalizes understanding and returns demonstration. He states he will call out if specimen is obtained. I will check back with pt for results or if further treatment is needed for specimen.
[2019-11-10] VITALS (20 sets, daily range): BP systolic 81–151; BP diastolic 41–80; PULSE 60–92; RESP 16–20; TEMP 36.4–37.3; O2SAT 93–98; BMI 21.4
[2019-11-10 04:13] LABS: Microscopic, Urine URINE MICROSCOPIC (MICROSCOPIC)
[2019-11-10 04:17] LABS: Appearance,Urine CLEAR (Clear); Blood, Urine Negative (Negative); Color,Urine YELLOW (Yellow); Glucose,Urine (UA) Negative (Negative); Ketones,Urine Negative (Negative); Leukocyte Esterase,Urine Negative (Negative); Nitrate,Urine Negative (Negative); PH,Urine 5.5 (5.0-8.5); Protein,Urine Negative (Negative); Specific Gravity, Urine >= 1.030 (1.005-1.030); Urobilinogen,Urine 0.2 EU/dl (0.2)
[2019-11-10 04:18] LABS: Bilirubin,Urine Negative (Negative)
[2019-11-10 04:22] LABS: Bacteria,Urine Trace /lpf; Mucus,Urine 1+ /lpf
--- NOTE | 2019-11-10 04:23 | PC.NURSE ---
Patient AO*1, unable to recall date or where he is, however he does obey commands and will answer questions, Patient was finally able to void around 0400, patient has not complained of any N/V or pain for duration of shift. Patient lung sounds clear bilaterally and VSS, patients bowel sounds are also present *4, patient rested comfortably for most of the shift, will continue to monitor
[2019-11-10 06:09] LABS: Chloride 108 mmol/L (98-107); Potassium 3.8 mmoL/L (3.5-5.1); Sodium 136 mmol/L (136-145)
[2019-11-10 06:12] LABS: Anion Gap 9.8 mEq/L (5-15); Blood Urea Nitrogen 15 mg/dl (9-20); Carbon Dioxide 22 mmol/L (22.0-30.0); Creatinine Clearance Estimated 59 mL/min (50-200); Estimated Glomerular Filt Rate 82 ml/min (>60); GFR (African American) 99 ML/MIN (>60)
[2019-11-10 06:13] LABS: Basophils # 0.1 K/mm3 (0-0.2); Basophils % 1.1 % (0.1-2.0); Eosinophils % 0.7 % (0.1-12.0); Glucose 91 mg/dl (74-100); Hematocrit 30.1 % (42.0-52.0); Lymphocytes # 1.9 K/mm3 (0.7-4.5); Lymphocytes % 31.2 % (10-50); Magnesium 1.8 mg/dl (1.6-2.3); Mean Corpuscular HGB Conc 29.6 g/dL (31.8-35.4); Mean Corpuscular Hemoglobin 22.9 pg (27.0-31.2); Mean Corpuscular Volume 77.5 fl (80-94); Mean Platelet Volume 9.1 fl (7.4-10.4); Monocytes # 0.4 K/mm3 (0.1-1.0); Monocytes % 7.2 % (1.7-9.3); Neutrophils # 3.6 K/mm3 (1.8-7.8); Neutrophils % 59.8 % (37.0-80.0); Platelet Count 218 K/mm3 (142-424); Red Blood Count 3.89 M/mm3 (4.60-6.20); Red Cell Distribution Width 15.8 % (11.5-17.5)
[2019-11-10 06:17] LABS: Hemoglobin 8.9 g/dL (14.1-18.0)
[2019-11-10 06:28] LABS: Calcium 8.6 mg/dl (8.4-10.2)
--- NOTE | 2019-11-10 07:00 | CT_ITS ---
PROCEDURE: CT ABDOMEN PELVIS WO/W CON CLINICAL INDICATION: weight loss, heme+ stool Weight loss, blood in stool COMPARISON: CT ABDOMEN PELVIS WO CON from 10/04/2019 TECHNIQUE: IV Contrast: 75ML OPTIRAY 350 Oral Contrast 10ml Gastroview Axial images obtained with sagittal and coronal reformats. All CT scans at the facility use one or more dose reduction, viz: automated exposure control, ma/kV adjustment per patient size (including targeted exams where dose is matched to indication, i.e. head), or iterative reconstruction technique. FINDINGS: LOWER THORAX: Cardiac pacemaker is present. There is borderline cardiomegaly with prominent left atrium and left ventricle. There are chronic changes in the lung bases. ABDOMEN & PELVIS: Prior cholecystectomy. Liver, spleen, adrenal glands, pancreas have an unremarkable appearance. No renal or ureteral calculi evident on the unenhanced images. No renal mass or hydronephrosis.. No evidence of appendicitis or diverticulitis. No pelvic mass or abnormal fluid collection. There are few scattered air-fluid levels within nondistended large bowel and small bowel. There is moderate thickening of the distal antrum and pyloric region of the stomach. There is mild distention of the body of the stomach. There is minimal dilatation of the infrarenal abdominal aorta measuring up to 2.5 cm. No evidence of retroperitoneal hemorrhage No acute bony findings. IMPRESSION: 1. There is moderate concentric thickening of the distal aspect of the antrum and pyloric region of the stomach. This could be neoplastic or inflammatory. Upper endoscopy recommended. There is mild gastric distention. 2. Small bowel and large bowel gas pattern is nonspecific with a few scattered air-fluid levels which could be seen with enterocolitis. No small or large bowel wall thickening however is evident. Dictated by: Sam Landry MD 11/10/2019 08:44 Electronically signed by Sam Landry MD in [place] 11/10/2019 08:45
--- NOTE | 2019-11-10 08:26 | HMH.ACPN2 ---
<Sadie Rock - Last Filed: 11/10/19 08:26> Internal Medicine - PN: Subj *Date: 11/10/19 *Time: 08:26 Interval history: Patient is more awake and alert this morning. He still has periods of confusion. He states he did eat some yesterday and he slept well last night. He denies any pain today. He is able to answer questions. Exam Vital signs and Labs for Last 24 Hours: Temp Pulse Resp BP Pulse Ox 97.9 F 61 18 123/51 L 98 11/10/19 08:00 11/10/19 08:00 11/10/19 08:00 11/10/19 08:00 11/10/19 08:00 Laboratory Results - last 24 hr 11/09/19 13:40: WBC 12.7 H, RBC 4.54 L, Hgb 10.5 L, Hct 35.7 L, MCV 78.6 L, MCH 23.0 L, MCHC 29.3 L, RDW 16.1, Plt Count 287, MPV 9.2, Neut % (Auto) 82.2 H, Lymph % (Auto) 14.0, [place] % (Auto) 3.4, Eos % (Auto) 0.1, Baso % (Auto) 0.3, Neut # (Auto) 10.4 H, Lymph # (Auto) 1.8, [place] # (Auto) 0.4, Eos # (Auto) 0.0, Baso # (Auto) 0.0 11/09/19 13:40: Sodium 135 L, Potassium 4.2, Chloride 100, Carbon Dioxide 24, Anion Gap 15.2 H, BUN 22 H, Creatinine 1.20, Estimated Creat Clear 48, Estimated GFR 59, Est GFR ( Amer) 71, Glucose 103 H, Calcium 10.3 H, Total Bilirubin 0.6, AST 31, ALT 22, Alkaline Phosphatase 63, Total Creatine Kinase 35 L, CK-MB (CK-2) 0.8, CK-MB (CK-2) Rel Index 2.3, Troponin I 0.01, Total Protein 6.7, Albumin 4.1, Globulin 2.6, Albumin/Globulin Ratio 1.6, TSH 1.37 11/10/19 03:58: Urine Color Yellow, Urine Appearance Clear, Urine pH 5.5, Ur Specific [place] >= 1.030, Urine Protein Negative, Urine Glucose (UA) Negative, Urine Ketones Negative, Urine Blood Negative, Urine Nitrate Negative, Urine Bilirubin Negative, Urine Urobilinogen 0.2, Ur Leukocyte Esterase Negative, Urine WBC 3-5, Urine Bacteria Trace, Urine Mucus 1+ 11/10/19 05:35: WBC 6.0 D, RBC 3.89 L, Hgb 8.9 L D, Hct 30.1 L, MCV 77.5 L, MCH 22.9 L, MCHC 29.6 L, RDW 15.8, Plt Count 218, MPV 9.1, Neut % (Auto) 59.8, Lymph % (Auto) 31.2, [place] % (Auto) 7.2, Eos % (Auto) 0.7, Baso % (Auto) 1.1, Neut # (Auto) 3.6, Lymph # (Auto) 1.9, [place] # (Auto) 0.4, Eos # (Auto) 0.0, Baso # (Auto) 0.1 11/10/19 05:35: Sodium 136, Potassium 3.8, Chloride 108 H, Carbon Dioxide 22, Anion Gap 9.8, BUN 15 D, Creatinine 0.90 D, Estimated Creat Clear 59, Estimated GFR 82, Est GFR ( Amer) 99 D, Glucose 91, Calcium 8.6 D, Magnesium 1.8 I & O for Last 24 hours: Intake & Output 11/07/19 11/08/19 11/09/19 11/10/19 11:59 11:59 11:59 11:59 Intake Total 2355 / 2355 Output Total 400 / 400 Balance 1954 / 1954 Weight 145 lb 1 oz 149 lb 9 oz - Constitutional no acute distress - *Routine Respiratory Exam Present: CTA bilaterally - *Routine Cardiovascular Exam Present: RRR - *Routine Abdominal Exam Present: soft, normoactive bowel sounds. Absent: tenderness - *Routine Extremities Exam Absent: cyanosis, clubbing, edema - *Routine Skin Exam Present: warm. Absent: rash - *Routine Neurological Exam Present: alert. Absent: sensory deficit, motor deficit Assessment and Plan (1) Altered mental status Current visit: Yes Status: Acute Category: Medical Code(s): R41.82 - Altered mental status, unspecified (2) Leukocytosis Current visit: Yes Status: Acute Category: Medical Code(s): D72.829 - Elevated white blood cell count, unspecified (3) Weakness Current visit: No Status: Acute Category: Medical Code(s): R53.1 - Weakness (4) Anorexia Current visit: No Status: Acute Category: Medical Code(s): R63.0 - Anorexia (5) Post-cholecystectomy syndrome Current visit: No Status: Acute Category: Medical Code(s): K91.5 - Postcholecystectomy syndrome (6) Weight loss Current visit: No Status: Acute Category: Medical Code(s): R63.4 - Abnormal weight loss (7) CHF (congestive heart failure) Current visit: No Status: Chronic Qualifiers: Heart failure type: unspecified Heart failure chronicity: unspecified Qualified Code(s): I50.9 - Heart failure, unspecified Categ
--- NOTE | 2019-11-10 09:15 | PC.NURSE ---
Contacted Dr. Leblanc's office (concrete saw operator surgeon) about consult for this pt.
--- NOTE | 2019-11-10 10:44 | PC.NURSE ---
pt was transported off of unit for ct at approx 0720 and returned at approx 0750.
--- NOTE | 2019-11-10 11:17 | HMH.GSCON ---
*Admission Date: 11/09/19 *Reason for consult:: Possible endoscopy *History of present illness: Patient is a 79-year-old male. He underwent laparoscopic cholecystectomy for gallstones by Dr. Montana on 09/15/2019. He has been followed by Dr. Lerma on several occasions postoperatively. He had been seen back in the office due to symptoms of weakness, belching, and some anorexia symptoms as well as weight loss. Patient had actually been hospitalized on 10/04/2019 until 10/05/2021 his primary service for the symptoms. He has had ongoing symptoms of generally not feeling well with some nausea, poor appetite, and weight loss. He had seen Dr. Montana back in the office on 10/18/2019 and the patient was started on proton pump inhibitors and simethicone. Consideration was given for obtaining gastric emptying scan. Also patient was offered ibrahim endoscopy (EGD and colonoscopy) and the patient reportedly declined this at this time. He had been seen in the emergency department on 11/05/2019 with ongoing symptoms of weakness, anorexia, nausea, and weight loss and was managed as an outpatient. He followed up in his primary care provider's office and patient was admitted for inpatient management. This morning he underwent CT scan with IV and oral contrast which revealed findings of concentric thickening of the distal antrum and pylorus possibly due to inflammatory or neoplastic process. Surgical consultation was obtained for upper endoscopy. Review of Systems - Review of Systems Review of systems:: unable to obtain - *Neurologic Reports confusion, Reports weakness, Denies headache(s), Denies dizziness [facility] History I have reviewed the patient's past medical history: Yes Medical History: Reports:: Carotid Stenosis, Congestive Heart Failure, Chronic Obstructive Pulmonary Disease (COPD), Hyperlipidemia, Hypertension, Internal Pacemaker, Kidney Stones Denies:: Cancer, Diabetes Mellitus Type 1, Diabetes Mellitus Type 2, MRSA, Seizures *Have you ever received a pneumonia vaccine?: Yes *Have you received a flu vaccine this season?: Yes Other Medical History: Reports: Other (Bladder tumor, sick sinus syndrome, pulmonary hypertension). Denies: Blood Transfusion Reaction Other Surgeries: Yes: Angiogram, Cholecystectomy, Colonoscopy, EGD, Pacemaker, Other (Carotid endarterectomy, transurethral resection of bladder tumor) Amputation: No Fractures: No - *Social History Educational Level: Attended High School Smoking Status: Former smoker Tobacco Type: cigarettes # Packs/Day (cigarettes): 1 #Yrs smoked (if former smoker): 25 Alcohol Intake: never Substance Use Type: denies use *Occupational Status:: retired Housing: house Household Members: spouse *Travel in the last 8 weeks: None Family Hx:: No significant family history Meds Home Medications Medication Instructions Recorded Confirmed Type Clopidogrel Bisulfate [Plavix 75mg 75 mg PO DAILY 09/10/18 11/09/19 History Tab] Simvastatin 20 mg PO HS 09/10/18 11/09/19 History Tamsulosin HCl [Flomax 0.4mg 0.4 mg PO BID 09/10/18 11/09/19 History capsule] lisinopril 10 mg tablet 20 mg PO BID tab 09/08/19 11/09/19 History Hydralazine HCl [Apresoline 10mg 20 mg PO BID 10/04/19 11/09/19 History tablet] Esomeprazole Magnesium 40 mg PO DAILY 11/05/19 11/09/19 History Mirtazapine [Remeron] 15 mg PO DAILY 11/05/19 11/09/19 History Ferrous Sulfate 325 mg PO BID 11/09/19 11/09/19 History Simethicone 125 mg PO BIDP PRN 11/09/19 11/09/19 History Allergies Allergy/AdvReac Type Severity Reaction Status Date / Time No Known Drug Allergies Allergy Unknown Verified 10/18/19 08:58 [NKDA] Exam Vital signs and Labs for Last 24 Hours: Temp Pulse Resp BP Pulse Ox 97.9 F 61 18 123/51 L 98 11/10/19 08:00 11/10/19 08:00 11/10/19 08:00 11/10/19 08:00 11/10/19 08:00 Laboratory Results - last 24 hr 11/09/19 13:40: WBC 12.7 H, RBC 4.54 L, Hgb 10.5 L, Hct 35.7 L, MCV 78.6 L, MCH 23.0 L, MCHC
--- NOTE | 2019-11-10 12:01 | PC.NURSE ---
pt off floor for egd at 1150. pt was contacted at 1127 and consent was received for egd by zeke cheatham rn and samantha sanchez rn
--- NOTE | 2019-11-10 12:36 | HMH.SCOPE ---
- Procedure: Date: 11/10/19 Procedure Performed:: Esophagogastroduodenoscopy with biopsies Indications:: Patient is a 79-year-old white male who has had problems with progressive anorexia, nausea, weakness, and weight loss over a couple of months. He was admitted for IV fluid hydration and work-up. He underwent CT scan of the abdomen and pelvis with IV and oral contrast this morning which revealed findings of abnormality in the distal antrum and pyloric region. Surgical consultation was obtained for upper endoscopy. Arrangements were made for urgent endoscopy. Performing Provider:: Leon Leblanc MD Referring Provider:: Cristiano Perez MD Sedation:: Propofol Procedure:: Consent was obtained. Patient was taken to endoscopy procedure room. He was positioned in a lateral decubitus position. Adequate intravenous sedation was achieved. Olympus endoscope was inserted via the oropharynx and advanced. The esophagus contained some liquid particulate food matter. There were findings of some scattered mild erosive esophagitis. Stomach was cannulated. There was an appreciable amount of retained food matter. Attempt was made to suction this free. Retroflexion revealed a moderate sliding hiatal hernia. In the distal antrum at the presumed pylorus there was a circumferential neoplastic mass. This was quite firm and irregular. It was creating at least a high-grade partial versus complete gastric outlet obstruction. Multiple biopsies were obtained using cold biopsy forceps. As much of the liquid food matter in the stomach is could be suctioned free was suctioned. Biopsy was obtained at the distal esophagus where there appeared to be some esophagitis. Endoscope was withdrawn. 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 Pathology pending Complications:: None immediately apparent Estimated blood obtained (mL): 3
--- NOTE | 2019-11-10 13:39 | P.PN_ITS ---
[facility] Anesthesia Checklist - Patient Identification Patient Identification: Arm Band - Structural Data Admitted From: Inpatient Planned Operative Procedure/s: egd Consent for Planned Operative Procedure(s) Verified: Yes Verified Documents: Surgical Consent, History and Physical - NPO Status Verified Time NPO: 00:00 - Additional verifications Anesthesia Reactions: No Hx Blood Transfusions: Yes Blood Transfusion Reaction: No - Airway Assessment C-Spine Mobility Assessed: Yes (mp2) TMJ Mobility Assessed: Yes Dentition: Edentulous - Neurological Assessment Level of Consciousness: Awake, Alert - Anesthesia Plan Anesthesia Risk discussed: Yes Anesthesia Plan: Verified ASA Class: III Anesthesia Type: MAC [facility] History I have reviewed the patient's past medical history: Yes Medical History: Reports:: Carotid Stenosis, Congestive Heart Failure, Chronic Obstructive Pulmonary Disease (COPD), Hyperlipidemia, Hypertension, Internal Pacemaker, Kidney Stones Denies:: Cancer, Diabetes Mellitus Type 1, Diabetes Mellitus Type 2, MRSA, Seizures *Have you ever received a pneumonia vaccine?: Yes *Have you received a flu vaccine this season?: Yes Other Medical History: Reports: Other (Bladder tumor, sick sinus syndrome, pulmonary hypertension). Denies: Blood Transfusion Reaction Anesthesia experience/problems:: nac Other Surgeries: Yes: Angiogram, Cholecystectomy, Colonoscopy, EGD, Pacemaker, Other (Carotid endarterectomy, transurethral resection of bladder tumor) Amputation: No Fractures: No - *Social History Educational Level: Attended High School Smoking Status: Former smoker Tobacco Type: cigarettes # Packs/Day (cigarettes): 1 #Yrs smoked (if former smoker): 25 Alcohol Intake: never Substance Use Type: denies use *Occupational Status:: retired Housing: house Household Members: spouse *Travel in the last 8 weeks: None Family Hx:: No significant family history
--- NOTE | 2019-11-10 13:41 | HMH.PTEV ---
Physical Therapy Evaluation Rehab PT IP Evaluation Start: 11/10/19 10:55 Freq: ONCE Status: Active Protocol: Document 11/10/19 13:18 [email or web address] (Rec: 11/10/19 13:41 [email or web address] [id number]) Subjective/History History History Pt. is a 79 year old male who is admitted via ED for altered mental status and hypotension on 11/09/19. Pt. reports PMH of Hypertension, Hyperlipidemia, CAD, severe COPD, sick sinus syndrome, pulmonary HTN, Cholecystectomy , internal pacemaker, and an angriogram. Pt. reports living with significant other in a 1 story home with no stairs and no adaptive equipment. Pt. reports independence with previous functional activities prior to hospitalization. Subjective Subjective Pt. reports so, who is doing this. Rehab PT IP Eval Objective Appearance Patient Behavior Appropriate,Cooperative, Restless Patient Orientation Person,Place,Birthday Difficulty following instructions none Speech Pattern Clear,Appropriate,Coherent Ambulation Patient Able to Ambulate Yes Ambulation Observation IP General Gait Pattern Observation No Deviations/Normal Ambulation Distance (feet) 40 Ambulation Assistive Device None Ambulation Ability Supervision/Stand by Balance Ability to Arise Able, w/o using arms Sitting Balance Steady, safe Standing Balance Narrow stance w/o support Dynamic Sitting Balance Ability Normal Dynamic Standing Balance Ability Normal Transfers Bed Transfer Ability Independent Chair Transfer Ability Independent,Supervision/Stand by Sit to Stand Bed Transfer Ability Supervision/Stand by Sit to Stand Chair Transfer Ability Supervision/Stand by ROM All Extremities PT ROM Status WFL MMT All Extremities PT MMT WFL Rehab PT IP prob,goals,plan Problems Date of Evaluation: 11/10/19 Rehab Potential Rehab Potential Innapropriate for Skilled Therapy Discharge Plan PT Discharge Plan Pt. appears to be at his baseline at this time. Pt. is safe to return home once discharged from hosp
--- NOTE | 2019-11-10 17:45 | PC.NURSE ---
pt has rested well since returning from egd at approx 1300. pt lungs remain diminished but clear, bowel sounds are active in all quads. nad noted. pt has loose cough noted but is not productive. pt is still slightly confused but is very conversant with staff.
--- NOTE | 2019-11-11 03:07 | PC.NURSE ---
PT ALERT TO SELF, UNABLE TO CONFIRM PLACE AND TIME. DESPITE CONFUSION, PT IS COOPERATIVE. 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 LUNGS NOTED CLEAR T/O AUSCULTATION. TOLERATED RA WELL. LOOSE, NONPRODUCTIVE COUGH NOTED THIS SHIFT. REMINDED PT OF NEED FOR SPUTUM COLLECTION, SAMPLE CUP PROVIDED AT BEDSIDE. PULSES +2, CAP REFILL <3 SEC. ABDOMEN NONDISTENDED, ACTIVE BOWEL SOUNDS, SOFT AND NONTENDER PER PALPATION. NO BM NOTED THIS SHIFT. AMBULATED TO AND FROM BATHROOM WITH SBA, SAFETY DEVICE APPLIED, PT NOTIFIED STAFF APPROPRIATELY FOR NEED TO GO TO BATHROOM. RESTED WELL THIS SHIFT. VSS. WILL CONTINUE TO MONITOR.
[2019-11-11 03:40] VITALS: BP 139/52; PULSE 65; RESP 18; TEMP 36.5; O2SAT 94
[2019-11-11 05:13] VITALS: BMI 22.4
[2019-11-11 05:54] LABS: Basophils % 0.7 % (0.1-2.0); Eosinophils % 0.8 % (0.1-12.0); Hematocrit 30.7 % (42.0-52.0); Hemoglobin 8.9 g/dL (14.1-18.0); Lymphocytes # 1.3 K/mm3 (0.7-4.5); Lymphocytes % 24.1 % (10-50); Mean Corpuscular HGB Conc 28.9 g/dL (31.8-35.4); Mean Corpuscular Volume 79.5 fl (80-94); Monocytes # 0.4 K/mm3 (0.1-1.0); Monocytes % 6.3 % (1.7-9.3); Neutrophils # 3.7 K/mm3 (1.8-7.8); Platelet Count 203 K/mm3 (142-424); Red Blood Count 3.86 M/mm3 (4.60-6.20); Red Cell Distribution Width 16.4 % (11.5-17.5); White Blood Count 5.5 K/mm3 (4.8-10.8)
[2019-11-11 08:00] VITALS: BP 117/54; PULSE 61; RESP 17; TEMP 36.4; O2SAT 97
[2019-11-11 08:06] VITALS: PULSE 65; RESP 19; O2SAT 97
--- NOTE | 2019-11-11 09:40 | XR_ITS ---
PROCEDURE: XR CHEST 2V Patient Age:79Y CLINICAL HISTORY: f/u pneumonia Also nausea COMPARISON: CXR2V XR chest 2V from 05/30/[address] chest w con from 08/02/2018 CT ABDOMEN PELVIS WO CON from 10/04/2019 XR CHEST 2V from 10/19/2019 XR CHEST AP from 11/05/2019 XR CHEST PORTABLE from 11/09/2019 FINDINGS: Note vertically oriented area, linear area of density at the retrocardiac region which is similar to perhaps only very slightly more evident than on the 10/19/2019 the baseline comparison CXR..This linear appearance more likely reflect atelectasis and scarring. I do not see the more diffuse appearance of infiltrate is question on 11/05/2019. The generous markings towards the lower lobes on the lateral view is similar to the 10/19/2019 CXR of and likely reflects some atelectasis and scarring towards bases Minimal blunting at the left CP angle left posterior sulcus evident today and reflect small left pleural effusion The right lung base appears stable and clear The upper lung pastrana are clear but hyperexpanded reflecting COPD. COPD and chronic changes are most evident towards the lung bases. Of pacemaker overlying the left chest. Atrial and ventricular leads intact. Chest wall unremarkable. There is scattered air-fluid level seen at the nondilated transverse colon which may reflect some liquid stool or loose stool. Correlation required.. There is also a loop of hepatic flexure seen just beneath the right hemidiaphragm as seen on other prior CXR studies, but no free air evident Chest wall and T-spine stable. Heart normal size normal pulmonary vascularity. IMPRESSION: 1.Small new left pleural effusion noted today Minimal blunting left CP angle and posterior sulcus seen today 2.Mild residual atelectasis and scarring at the lung bases but no definitive pneumonia . Generous markings lower lobe similar to 10/19/2019 . (Vertical linear area retrocardiac region most likely reflects some atelectasis along with baseline scarring and pulmonary vessels. Similar to 10/19/[address] chest) 3.Heart normal size. Normal pulmonary vascularity. No CHF. Pacemaker 4 incidental note scattered small air-fluid levels at nondilated transverse colon could reflect loose or liquid stool Dictated by: Mohsen Lepe MD 11/11/2019 14:11 Electronically signed by Mohsen Lepe MD in [place] 11/11/2019 14:11
--- NOTE | 2019-11-11 09:42 | HMH.ACPN2 ---
Internal Medicine - PN: Subj *Date: 11/11/19 *Time: 09:48 Interval history: He tolerated the EGD well yesterday. 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 Biopsies are pending. No new complaints this morning. He rested fairly well last night. He is tolerating liquids but still has early satiety symptoms. He complains of some mild epigastric pain. States he had a bowel movement yesterday. No complaints of nausea. He still has a congested cough but unable to produce a sputum sample. Exam Vital signs and Labs for Last 24 Hours: Temp Pulse Resp BP Pulse Ox 97.6 F 65 19 117/54 L 97 11/11/19 08:00 11/11/19 08:06 11/11/19 08:06 11/11/19 08:00 11/11/19 08:06 Laboratory Results - last 24 hr 11/11/19 05:30: WBC 5.5, RBC 3.86 L, Hgb 8.9 L, Hct 30.7 L, MCV 79.5 L, MCH 23.0 L, MCHC 28.9 L, RDW 16.4, Plt Count 203, MPV 8.0, Neut % (Auto) 68.0, Lymph % (Auto) 24.1, [place] % (Auto) 6.3, Eos % (Auto) 0.8, Baso % (Auto) 0.7, Neut # (Auto) 3.7, Lymph # (Auto) 1.3, [place] # (Auto) 0.4, Eos # (Auto) 0.0, Baso # (Auto) 0.0 I & O for Last 24 hours: Intake & Output 11/08/19 11/09/19 11/10/19 11/11/19 11:59 11:59 11:59 11:59 Intake Total 2355 / 2355 1819 / 1819 Output Total 400 / 400 900 / 900 Balance 1954 / 1954 919 / 919 Weight 145 lb 1 oz 149 lb 9 oz 156 lb 6 oz Narrative: He is awake and alert. He is oriented to name and place. Color is pale. No respiratory distress. Chest with generally diminished breath sounds and a few rhonchi. No wheezes. Abdomen is soft and nondistended with mild epigastric tenderness. Assessment and Plan (1) Altered mental status Current visit: Yes Status: Acute Category: Medical Code(s): R41.82 - Altered mental status, unspecified (2) Leukocytosis Current visit: Yes Status: Acute Category: Medical Code(s): D72.829 - Elevated white blood cell count, unspecified (3) Weakness Current visit: No Status: Acute Category: Medical Code(s): R53.1 - Weakness (4) Anorexia Current visit: No Status: Acute Category: Medical Code(s): R63.0 - Anorexia (5) Post-cholecystectomy syndrome Current visit: No Status: Acute Category: Medical Code(s): K91.5 - Postcholecystectomy syndrome (6) Weight loss Current visit: No Status: Acute Category: Medical Code(s): R63.4 - Abnormal weight loss (7) CHF (congestive heart failure) Current visit: No Status: Chronic Qualifiers: Heart failure type: unspecified Heart failure chronicity: unspecified Qualified Code(s): I50.9 - Heart failure, unspecified Category: Medical Code(s): I50.9 - Heart failure, unspecified (8) COPD (chronic obstructive pulmonary disease) Current visit: No Status: Chronic Qualifiers: COPD type: unspecified COPD Qualified Code(s): J44.9 - Chronic obstructive pulmonary disease, unspecified Category: Medical Code(s): J44.9 - Chronic obstructive pulmonary disease, unspecified (9) Cardiac pacemaker in situ Current visit: No Status: Chronic Category: Medical Code(s): Z95.0 - Presence of cardiac pacemaker (10) Carotid artery stenosis Current visit: No Status: Chronic Qualifiers: Laterality: bilateral Qualified Code(s): I65.23 - Occlusion and stenosis of bilateral carotid arteries Category: Medical Code(s): I65.29 - Occlusion and stenosis of unspecified carotid artery (11) H/O carotid endarterectomy Current visit: No Status: Chronic Category: Surgical Code(s): Z98.890 - Other specified postprocedural states (12) Hyperlipidemia Current visit: No Status: Chronic Qualifiers: Hyperlipidemia type: mixed hyperlipidemia Qualified Code(s): E78.2 - Mixed hyperlipidemia Category: Medical Code(s): E78.5 - Hyperlipidemia, unspecified (13) Hypertension Current visit: No Status: Chronic Qualifiers: Hyper
--- NOTE | 2019-11-11 12:54 | P.PN_ITS ---
Subjective Narrative: Patient without significant complaints today. Tolerated EGD without issue yesterday. Taking clear liquid diet. Does admit to some minor nausea. Exam Vital signs and Labs for Last 24 Hours: Temp Pulse Resp BP Pulse Ox 97.6 F 65 19 117/54 L 97 11/11/19 08:00 11/11/19 08:06 11/11/19 08:06 11/11/19 08:00 11/11/19 08:06 Laboratory Results - last 24 hr 11/11/19 05:30: WBC 5.5, RBC 3.86 L, Hgb 8.9 L, Hct 30.7 L, MCV 79.5 L, MCH 23.0 L, MCHC 28.9 L, RDW 16.4, Plt Count 203, MPV 8.0, Neut % (Auto) 68.0, Lymph % (Auto) 24.1, [place] % (Auto) 6.3, Eos % (Auto) 0.8, Baso % (Auto) 0.7, Neut # (Auto) 3.7, Lymph # (Auto) 1.3, [place] # (Auto) 0.4, Eos # (Auto) 0.0, Baso # (Auto) 0.0 I & O for Last 24 hours: Intake & Output 11/09/19 11/10/19 11/11/19 11/12/19 11:59 11:59 11:59 11:59 Intake Total 2355 / 2355 1819 / 1819 Output Total 400 / 400 900 / 900 Balance 1954 / 1954 919 / 919 Weight 145 lb 1 oz 149 lb 9 oz 156 lb 6 oz - *Routine Abdominal Exam Present: soft. Absent: tenderness Progress Note: A&P (1) Altered mental status Status: Acute Current Visit: Yes (2) Leukocytosis Status: Acute Current Visit: Yes (3) Weakness Status: Acute Current Visit: No (4) Anorexia Status: Acute Current Visit: No (5) Post-cholecystectomy syndrome Status: Acute Current Visit: No (6) Weight loss Status: Acute Current Visit: No (7) CHF (congestive heart failure) Status: Chronic Current Visit: No (8) COPD (chronic obstructive pulmonary disease) Status: Chronic Current Visit: No (9) Cardiac pacemaker in situ Status: Chronic Current Visit: No (10) Carotid artery stenosis Status: Chronic Current Visit: No (11) H/O carotid endarterectomy Status: Chronic Current Visit: No (12) Hyperlipidemia Status: Chronic Current Visit: No (13) Hypertension Status: Chronic Current Visit: No (14) Moderate to severe pulmonary hypertension Status: Chronic Current Visit: No (15) SSS (sick sinus syndrome) Status: Resolved Current Visit: No (16) Anemia Status: Acute Current Visit: Yes (17) Pneumonia Status: Acute Current Visit: No (18) Gastric neoplasm Status: Acute Assessment and plan: Limit to clear liquids for now due to high grade partial gastric outlet obstruction. Await pathology results. Current Visit: Yes
[2019-11-11 16:00] VITALS: BP 149/60; PULSE 68; RESP 18; TEMP 36.6; O2SAT 94
--- NOTE | 2019-11-11 16:33 | PC.NURSE ---
Pt has been A&O X4 throughout this shift. Despite several requests by nursing staff for patient to sit in the recliner, patient has refused. Pt is ambulating with 1 assist to the bathroom and uses the urinal to void. No complaints of pain or discomfort this shift. Pt has voiced dislike for his diet and after addressing Dr. Leblanc, pt was informed a clear liquid diet is medically necessary until biopsy results are complete. NS infusing @ 75 ML/HR via a 20 G peripheral IV in the LT wrist. VSS. Call light within reach. Will continue to monitor.
[2019-11-11 20:00] VITALS: BP 137/47; PULSE 62; RESP 16; TEMP 36.7; O2SAT 94
--- NOTE | 2019-11-11 23:37 | PC.NURSE ---
Pt refused bath, I had a bath last night. Pt was shaved per request. Pt appeared tired and fell asleep around 2230, appears to be resting well with no objective s/s of pain or discomfort. Call light w/i reach, monitoring continues.
--- NOTE | 2019-11-12 02:19 | PC.NURSE ---
Bed safety in place, pt getting up, into room, pt reported needed to go to bathroom, assisted with IV pole, pt began to walk out the door into the hallway. Redirected to bathroom, then assisted back to bed. Pt did not know where he was, who I was, or month, alert to name, birthday. Bed safety on and audible, pt voiced no needs, monitoring continues.
[2019-11-12 04:00] VITALS: BP 132/48; PULSE 63; RESP 18; TEMP 36.7; O2SAT 93; BMI 21.5
[2019-11-12 05:12] LABS: Basophils # 0.1 K/mm3 (0-0.2); Basophils % 0.7 % (0.1-2.0); Eosinophils # 0.1 K/mm3 (0.0-0.4); Eosinophils % 0.7 % (0.1-12.0); Hemoglobin 8.8 g/dL (14.1-18.0); Lymphocytes # 1.2 K/mm3 (0.7-4.5); Lymphocytes % 18.2 % (10-50); Mean Corpuscular HGB Conc 29.7 g/dL (31.8-35.4); Mean Corpuscular Hemoglobin 23.4 pg (27.0-31.2); Mean Corpuscular Volume 78.9 fl (80-94); Mean Platelet Volume 9.1 fl (7.4-10.4); Monocytes # 0.4 K/mm3 (0.1-1.0); Monocytes % 5.9 % (1.7-9.3); Neutrophils % 74.6 % (37.0-80.0); Platelet Count 210 K/mm3 (142-424); Red Blood Count 3.77 M/mm3 (4.60-6.20); Red Cell Distribution Width 16.5 % (11.5-17.5); White Blood Count 6.7 K/mm3 (4.8-10.8)
[2019-11-12 05:15] LABS: Hematocrit 29.8 % (42.0-52.0)
[2019-11-12 05:22] LABS: Anion Gap 12.8 mEq/L (5-15); Blood Urea Nitrogen 8 mg/dl (9-20); Calcium 8.6 mg/dl (8.4-10.2); Carbon Dioxide 20 mmol/L (22.0-30.0); Chloride 105 mmol/L (98-107); Creatinine Clearance Estimated 60 mL/min (50-200); Estimated Glomerular Filt Rate 82 ml/min (>60); GFR (African American) 99 ML/MIN (>60); Glucose 66 mg/dl (74-100); Potassium 3.8 mmoL/L (3.5-5.1); Sodium 134 mmol/L (136-145)
[2019-11-12 08:00] VITALS: BP 147/52; PULSE 83; RESP 16; TEMP 36.3; O2SAT 97
[2019-11-12 08:24] VITALS: PULSE 65; RESP 18; O2SAT 97
--- NOTE | 2019-11-12 10:09 | HMH.ACPN2 ---
Internal Medicine - PN: Subj *Date: 11/12/19 *Time: 10:09 Interval history: States he rested well last night. He does not like the liquid diet. He has some mild upper abdominal pain. Had a normal bowel movement this morning. Exam Vital signs and Labs for Last 24 Hours: Temp Pulse Resp BP Pulse Ox 97.3 F L 65 18 147/52 H 97 11/12/19 08:00 11/12/19 08:24 11/12/19 08:24 11/12/19 08:00 11/12/19 08:24 Laboratory Results - last 24 hr 11/12/19 05:05: WBC 6.7, RBC 3.77 L, Hgb 8.8 L, Hct 29.8 L, MCV 78.9 L, MCH 23.4 L, MCHC 29.7 L, RDW 16.5, Plt Count 210, MPV 9.1, Neut % (Auto) 74.6, Lymph % (Auto) 18.2, [place] % (Auto) 5.9, Eos % (Auto) 0.7, Baso % (Auto) 0.7, Neut # (Auto) 5.0, Lymph # (Auto) 1.2, [place] # (Auto) 0.4, Eos # (Auto) 0.1, Baso # (Auto) 0.1 11/12/19 05:05: Sodium 134 L, Potassium 3.8, Chloride 105, Carbon Dioxide 20 L, Anion Gap 12.8, BUN 8 L D, Creatinine 0.90, Estimated Creat Clear 60, Estimated GFR 82, Est GFR ( Amer) 99, Glucose 66 L, Calcium 8.6 I & O for Last 24 hours: Intake & Output 11/09/19 11/10/19 11/11/19 11/12/19 11:59 11:59 11:59 11:59 Intake Total 2355 / 2355 1968 / 1968 1668 / 1668 Output Total 400 / 400 900 / 900 275 / 275 Balance 1954 / 1954 1069 / 1069 1393 / 1393 Weight 145 lb 1 oz 149 lb 9 oz 156 lb 6 oz 150 lb 8 oz Narrative: He is sitting up in the chair and is alert and oriented x3. Color is pale. No respiratory distress. Chest with generally diminished breath sounds. No rhonchi or wheezes. Heart is regular. Abdomen is soft and nondistended. Minimal epigastric tenderness. Assessment and Plan (1) Altered mental status Current visit: Yes Status: Acute Category: Medical Code(s): R41.82 - Altered mental status, unspecified (2) Leukocytosis Current visit: Yes Status: Acute Category: Medical Code(s): D72.829 - Elevated white blood cell count, unspecified (3) Weakness Current visit: No Status: Acute Category: Medical Code(s): R53.1 - Weakness (4) Anorexia Current visit: No Status: Acute Category: Medical Code(s): R63.0 - Anorexia (5) Post-cholecystectomy syndrome Current visit: No Status: Acute Category: Medical Code(s): K91.5 - Postcholecystectomy syndrome (6) Weight loss Current visit: No Status: Acute Category: Medical Code(s): R63.4 - Abnormal weight loss (7) CHF (congestive heart failure) Current visit: No Status: Chronic Qualifiers: Heart failure type: unspecified Heart failure chronicity: unspecified Qualified Code(s): I50.9 - Heart failure, unspecified Category: Medical Code(s): I50.9 - Heart failure, unspecified (8) COPD (chronic obstructive pulmonary disease) Current visit: No Status: Chronic Qualifiers: COPD type: unspecified COPD Qualified Code(s): J44.9 - Chronic obstructive pulmonary disease, unspecified Category: Medical Code(s): J44.9 - Chronic obstructive pulmonary disease, unspecified (9) Cardiac pacemaker in situ Current visit: No Status: Chronic Category: Medical Code(s): Z95.0 - Presence of cardiac pacemaker (10) Carotid artery stenosis Current visit: No Status: Chronic Qualifiers: Laterality: bilateral Qualified Code(s): I65.23 - Occlusion and stenosis of bilateral carotid arteries Category: Medical Code(s): I65.29 - Occlusion and stenosis of unspecified carotid artery (11) H/O carotid endarterectomy Current visit: No Status: Chronic Category: Surgical Code(s): Z98.890 - Other specified postprocedural states (12) Hyperlipidemia Current visit: No Status: Chronic Qualifiers: Hyperlipidemia type: mixed hyperlipidemia Qualified Code(s): E78.2 - Mixed hyperlipidemia Category: Medical Code(s): E78.5 - Hyperlipidemia, unspecified (13) Hypertension Current visit: No Status: Chronic Qualifiers: Hypertension type: essential hypertension Qualified Code(s): I10 - Essential (marcy
[2019-11-12 11:47] VITALS: BP 147/53; PULSE 61; RESP 18; TEMP 36.4; O2SAT 95
[2019-11-12 16:20] VITALS: BP 147/53; PULSE 60; RESP 16; TEMP 36.7; O2SAT 95
--- NOTE | 2019-11-12 19:21 | PC.NURSE ---
Pt has been A&O X4 throughout this shift. Pt complied with request of the nursing staff and sat in the recliner for a few hours today. No complaints of pain this shift. Pt complained of nausea and requested medicine: Zofran was ordered per Dr. Henderson (scallop shucker for [facility]) and given X1. NS infusing @ 75 ML/HR via a 20 G peripheral IV in the RT wrist. VSS. Call light within reach. Will continue to monitor.
[2019-11-12 20:00] VITALS: BP 132/52; PULSE 60; RESP 18; TEMP 36.9; O2SAT 91
[2019-11-13 03:41] VITALS: BP 127/56; PULSE 80; RESP 16; TEMP 36.4; O2SAT 96; BMI 21.7
--- NOTE | 2019-11-13 04:54 | PC.NURSE ---
Pt not oriented but to self and birthday, answers, I don't know when asked other orientation questions. Nothing acute to report this shift, pt slept more so than not. Sits on side of bed to use urinal, IV infusing well with no problems noted. Pt is aware of mass in stomach, remains safe, presently sleeping with no objective s/s of pain noted, monitoring continues.
[2019-11-13 07:30] VITALS: PULSE 60; O2SAT 94
[2019-11-13 08:00] VITALS: BP 151/57; PULSE 60; RESP 19; TEMP 36.7; O2SAT 94
--- NOTE | 2019-11-13 08:03 | HMH.ACPN2 ---
<Joyce Bedoya - Last Filed: 11/13/19 08:03> Internal Medicine - PN: Subj *Date: 11/13/19 *Time: 08:03 Interval history: Patient did not sleep last night. He states he does have some abdominal discomfort. He denies shortness of breath. He did sit up in a chair yesterday. He remains on clear liquids and does not like these. He is voiding without.. He states he did have a bowel movement yesterday a moderate amount. Exam Vital signs and Labs for Last 24 Hours: Temp Pulse Resp BP Pulse Ox 97.5 F L 80 16 127/56 L 96 11/13/19 03:41 11/13/19 03:41 11/13/19 03:41 11/13/19 03:41 11/13/19 03:41 I & O for Last 24 hours: Intake & Output 11/10/19 11/11/19 11/12/19 11/13/19 11:59 11:59 11:59 11:59 Intake Total 2355 / 2355 1968 / 1968 1818 / 1818 2354 / 2354 Output Total 400 / 400 900 / 900 275 / 275 625 / 625 Balance 1954 / 1954 1069 / 1069 1543 / 1543 1729 / 1729 Weight 149 lb 9 oz 156 lb 6 oz 150 lb 8 oz 152 lb 2 oz - Constitutional no acute distress - *Routine Respiratory Exam Comments: Decreased breath sounds in the left base - *Routine Cardiovascular Exam Present: RRR - *Routine Abdominal Exam Present: soft, normoactive bowel sounds. Absent: tenderness, distended - *Routine Extremities Exam Absent: edema, calf tenderness - *Routine Neurological Exam Present: alert, oriented X3 Assessment and Plan (1) Altered mental status Current visit: Yes Status: Acute Category: Medical Code(s): R41.82 - Altered mental status, unspecified (2) Leukocytosis Current visit: Yes Status: Acute Category: Medical Code(s): D72.829 - Elevated white blood cell count, unspecified (3) Weakness Current visit: No Status: Acute Category: Medical Code(s): R53.1 - Weakness (4) Anorexia Current visit: No Status: Acute Category: Medical Code(s): R63.0 - Anorexia (5) Post-cholecystectomy syndrome Current visit: No Status: Acute Category: Medical Code(s): K91.5 - Postcholecystectomy syndrome (6) Weight loss Current visit: No Status: Acute Category: Medical Code(s): R63.4 - Abnormal weight loss (7) CHF (congestive heart failure) Current visit: No Status: Chronic Qualifiers: Heart failure type: unspecified Heart failure chronicity: unspecified Qualified Code(s): I50.9 - Heart failure, unspecified Category: Medical Code(s): I50.9 - Heart failure, unspecified (8) COPD (chronic obstructive pulmonary disease) Current visit: No Status: Chronic Qualifiers: COPD type: unspecified COPD Qualified Code(s): J44.9 - Chronic obstructive pulmonary disease, unspecified Category: Medical Code(s): J44.9 - Chronic obstructive pulmonary disease, unspecified (9) Cardiac pacemaker in situ Current visit: No Status: Chronic Category: Medical Code(s): Z95.0 - Presence of cardiac pacemaker (10) Carotid artery stenosis Current visit: No Status: Chronic Qualifiers: Laterality: bilateral Qualified Code(s): I65.23 - Occlusion and stenosis of bilateral carotid arteries Category: Medical Code(s): I65.29 - Occlusion and stenosis of unspecified carotid artery (11) H/O carotid endarterectomy Current visit: No Status: Chronic Category: Surgical Code(s): Z98.890 - Other specified postprocedural states (12) Hyperlipidemia Current visit: No Status: Chronic Qualifiers: Hyperlipidemia type: mixed hyperlipidemia Qualified Code(s): E78.2 - Mixed hyperlipidemia Category: Medical Code(s): E78.5 - Hyperlipidemia, unspecified (13) Hypertension Current visit: No Status: Chronic Qualifiers: Hypertension type: essential hypertension Qualified Code(s): I10 - Essential (primary) hypertension Category: Medical Code(s): I10 - Essential (primary) hypertension (14) Moderate to severe pulmonary hypertension Current visit: No Status: Chronic Category: Medical Code(s): I27.20 - Pulmonary
--- NOTE | 2019-11-13 08:31 | HMH.GSPN ---
Subjective Narrative: Patient complains of some dyspepsia and reflux type symptoms. No nausea. Exam Vital signs and Labs for Last 24 Hours: Temp Pulse Resp BP Pulse Ox 98.1 F 60 19 151/57 H 94 L 11/13/19 08:00 11/13/19 08:00 11/13/19 08:00 11/13/19 08:00 11/13/19 08:00 I & O for Last 24 hours: Intake & Output 11/10/19 11/11/19 11/12/19 11/13/19 11:59 11:59 11:59 11:59 Intake Total 2355 / 2355 1969 / 1969 1818 / 1818 2834 / 2834 Output Total 400 / 400 900 / 900 275 / 275 625 / 625 Balance 1954 / 1954 1069 / 1069 1543 / 1543 2209 / 2209 Weight 149 lb 9 oz 156 lb 6 oz 150 lb 8 oz 152 lb 2 oz - *Routine Abdominal Exam Present: soft. Absent: tenderness Progress Note: A&P (1) Altered mental status Status: Acute Current Visit: Yes (2) Leukocytosis Status: Acute Current Visit: Yes (3) Weakness Status: Acute Current Visit: No (4) Anorexia Status: Acute Current Visit: No (5) Post-cholecystectomy syndrome Status: Acute Current Visit: No (6) Weight loss Status: Acute Current Visit: No (7) CHF (congestive heart failure) Status: Chronic Current Visit: No (8) COPD (chronic obstructive pulmonary disease) Status: Chronic Current Visit: No (9) Cardiac pacemaker in situ Status: Chronic Current Visit: No (10) Carotid artery stenosis Status: Chronic Current Visit: No (11) H/O carotid endarterectomy Status: Chronic Current Visit: No (12) Hyperlipidemia Status: Chronic Current Visit: No (13) Hypertension Status: Chronic Current Visit: No (14) 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 Current Visit: Yes
--- NOTE | 2019-11-13 08:47 | HMH.ACPN ---
Internal Medicine - PN: Subj *Date: 11/13/19 *Time: 08:47 Exam Vital signs and Labs for Last 24 Hours: Temp Pulse Resp BP Pulse Ox 98.1 F 60 19 151/57 H 94 L 11/13/19 08:00 11/13/19 08:00 11/13/19 08:00 11/13/19 08:00 11/13/19 08:00 I & O for Last 24 hours: Intake & Output 11/10/19 11/11/19 11/12/19 11/13/19 23:59 23:59 23:59 23:59 Intake Total 2024 / 2024 2974 / 2974 2154 / 2154 1343 / 1343 Output Total 1300 / 1300 375 / 575 525 / 525 Balance 725 / 725 2974 / 2849 1779 / 1579 818 / 818 Weight 68 kg 70.931 kg 68.266 kg 69.003 kg Assessment and Plan (1) Altered mental status Current visit: Yes Status: Acute Category: Medical Code(s): R41.82 - Altered mental status, unspecified (2) Leukocytosis Current visit: Yes Status: Acute Category: Medical Code(s): D72.829 - Elevated white blood cell count, unspecified (3) Weakness Current visit: No Status: Acute Category: Medical Code(s): R53.1 - Weakness (4) Anorexia Current visit: No Status: Acute Category: Medical Code(s): R63.0 - Anorexia (5) Post-cholecystectomy syndrome Current visit: No Status: Acute Category: Medical Code(s): K91.5 - Postcholecystectomy syndrome (6) Weight loss Current visit: No Status: Acute Category: Medical Code(s): R63.4 - Abnormal weight loss (7) CHF (congestive heart failure) Current visit: No Status: Chronic Qualifiers: Heart failure type: unspecified Heart failure chronicity: unspecified Qualified Code(s): I50.9 - Heart failure, unspecified Category: Medical Code(s): I50.9 - Heart failure, unspecified (8) COPD (chronic obstructive pulmonary disease) Current visit: No Status: Chronic Qualifiers: COPD type: unspecified COPD Qualified Code(s): J44.9 - Chronic obstructive pulmonary disease, unspecified Category: Medical Code(s): J44.9 - Chronic obstructive pulmonary disease, unspecified (9) Cardiac pacemaker in situ Current visit: No Status: Chronic Category: Medical Code(s): Z95.0 - Presence of cardiac pacemaker (10) Carotid artery stenosis Current visit: No Status: Chronic Qualifiers: Laterality: bilateral Qualified Code(s): I65.23 - Occlusion and stenosis of bilateral carotid arteries Category: Medical Code(s): I65.29 - Occlusion and stenosis of unspecified carotid artery (11) H/O carotid endarterectomy Current visit: No Status: Chronic Category: Surgical Code(s): Z98.890 - Other specified postprocedural states (12) Hyperlipidemia Current visit: No Status: Chronic Qualifiers: Hyperlipidemia type: mixed hyperlipidemia Qualified Code(s): E78.2 - Mixed hyperlipidemia Category: Medical Code(s): E78.5 - Hyperlipidemia, unspecified (13) Hypertension Current visit: No Status: Chronic Qualifiers: Hypertension type: essential hypertension Qualified Code(s): I10 - Essential (primary) hypertension Category: Medical Code(s): I10 - Essential (primary) hypertension (14) Moderate to severe pulmonary hypertension Current visit: No Status: Chronic Category: Medical Code(s): I27.20 - Pulmonary hypertension, unspecified (15) SSS (sick sinus syndrome) Current visit: No Status: Resolved Category: Medical Code(s): I49.5 - Sick sinus syndrome (16) Anemia Current visit: Yes Status: Acute Category: Medical Code(s): D64.9 - Anemia, unspecified (17) Pneumonia Current visit: No Status: Acute Category: Medical Code(s): J18.9 - Pneumonia, unspecified organism (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 WBC NORMALIZED.)
--- NOTE | 2019-11-13 14:13 | DIET.NUTRFU ---
Nutritional assessment has been completed. 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 Dietary is sending clear liquid protein supplements with all meals. He has had good toleration of clear liquid diet. BG has been up and down, will continue to monitor closely.
[2019-11-13 16:00] VITALS: BP 125/52; PULSE 76; RESP 17; TEMP 36.9; O2SAT 94
--- NOTE | 2019-11-13 16:02 | PC.NURSE ---
Recieved report at approx 1530 on pt. He is alert to self and situation. He is calm and cooperative. RR even and unlabored at this time. CB in reach.
--- NOTE | 2019-11-13 18:11 | PC.NURSE ---
Pt is alert and oriented and oriented x 2. RR are even and unlabored. Pt states he did have episode of heartburn early this am and he states it has improved at this time. He continues on clear liquids at this time. VSS. Continues to do well on RA. CB in reach. Will cont to mx this shift.
[2019-11-13 19:25] VITALS: BP 148/59; PULSE 62; RESP 18; TEMP 36.4; O2SAT 96
--- NOTE | 2019-11-13 19:48 | PC.NURSE ---
Did attempt x 2 times to change IV without success as it is due to be changed. IV in R wrist is infusing NS as ordered without problems at this time. Report given on pt.
[2019-11-14 03:57] VITALS: BP 153/68; PULSE 63; RESP 18; TEMP 36.4; O2SAT 93
--- NOTE | 2019-11-14 04:09 | PC.NURSE ---
PT. ABLE TO STATE NAME AND ; UNABLE TO STATE YEAR OR PLACE. PT. UNDERSTANDS SITUATION WITH LONG-TERM MEMORY INTACT. ABLE TO FOLLOW COMMANDS; PT. DOES NOT CONSISTENTLY USE CALL LIGHT WHEN IN NEED OF ASSISTANCE; SAFETY MEASURES APPLIED. PT. C/O MILD NAUSEA; TX WITH PROTONIX PER SEP, EFFECTIVENESS NOTED. LOOSE, INTERMITTENT NONPRODUCTIVE COUGH NOTED; RT NOTIFIED AND ATTEMPTED TO INDUCE SPUTUM SAMPLE, ATTEMPT UNSUCCESSFUL. PT. HAS NOT C/O DIARRHEA, VOMITING, PAIN, SOA OR DIZZINESS THIS SHIFT.
[2019-11-14 05:08] VITALS: BMI 22.2
[2019-11-14 08:00] VITALS: BP 146/58; PULSE 60; PULSE 76; RESP 16; RESP 17; TEMP 36.9; O2SAT 94
--- NOTE | 2019-11-14 08:13 | HMH.GSPN ---
Subjective Patient reports: no new complaints Narrative: Still with some burning dyspepsia type symptoms with clear liquids. No nausea. Exam Vital signs and Labs for Last 24 Hours: Temp Pulse Resp BP Pulse Ox 98.4 F 60 16 146/58 H 94 L 11/14/19 08:00 11/14/19 08:00 11/14/19 08:00 11/14/19 08:00 11/14/19 08:00 I & O for Last 24 hours: Intake & Output 11/11/19 11/12/19 11/13/19 11/14/19 11:59 11:59 11:59 11:59 Intake Total 1969 / 1969 1818 / 1818 2984 / 2984 2677 / 2677 Output Total 900 / 900 275 / 275 625 / 625 550 / 550 Balance 1069 / 1069 1543 / 1543 2359 / 2359 2127 / 2127 Weight 156 lb 6 oz 150 lb 8 oz 152 lb 2 oz 155 lb 8 oz - *Routine Abdominal Exam Present: soft. Absent: tenderness Progress Note: A&P (1) Altered mental status Status: Acute Current Visit: Yes (2) Leukocytosis Status: Acute Current Visit: Yes (3) Weakness Status: Acute Current Visit: No (4) Anorexia Status: Acute Current Visit: No (5) Post-cholecystectomy syndrome Status: Acute Current Visit: No (6) Weight loss Status: Acute Current Visit: No (7) CHF (congestive heart failure) Status: Chronic Current Visit: No (8) COPD (chronic obstructive pulmonary disease) Status: Chronic Current Visit: No (9) Cardiac pacemaker in situ Status: Chronic Current Visit: No (10) Carotid artery stenosis Status: Chronic Current Visit: No (11) H/O carotid endarterectomy Status: Chronic Current Visit: No (12) Hyperlipidemia Status: Chronic Current Visit: No (13) Hypertension Status: Chronic Current Visit: No (14) 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 Will contact pathology today. Will need transfer for definitive care. Current Visit: Yes
--- NOTE | 2019-11-14 08:46 | HMH.ACPN2 ---
<Joyce Bedoya - Last Filed: 11/14/19 08:46> Internal Medicine - PN: Subj *Date: 11/14/19 *Time: 08:46 Interval history: Patient thinks his stomach might be a little bit better today. He has remained on clear liquids. He denies nausea. He has had no chest pain and denies shortness of breath. He did sit up in a chair yesterday. He states he gets very tired. Has been seen by surgeon Dr. Leblanc who agrees to full liquid diet but no oatmeal. Path report is still pending. Exam Vital signs and Labs for Last 24 Hours: Temp Pulse Resp BP Pulse Ox 98.4 F 60 16 146/58 H 94 L 11/14/19 08:00 11/14/19 08:00 11/14/19 08:00 11/14/19 08:00 11/14/19 08:00 I & O for Last 24 hours: Intake & Output 11/11/19 11/12/19 11/13/19 11/14/19 11:59 11:59 11:59 11:59 Intake Total 1969 / 1969 1818 / 1818 2984 / 2984 2677 / 2677 Output Total 900 / 900 275 / 275 625 / 625 550 / 550 Balance 1069 / 1069 1543 / 1543 2359 / 2359 2127 / 2127 Weight 156 lb 6 oz 150 lb 8 oz 152 lb 2 oz 155 lb 8 oz - Constitutional no acute distress - *Routine Respiratory Exam Comments: Deep crease breath sounds in the left base. Clear to auscultation bilaterally A&P otherwise - *Routine Cardiovascular Exam Present: RRR - *Routine Abdominal Exam Present: soft, normoactive bowel sounds. Absent: tenderness, distended - *Routine Extremities Exam Absent: edema, calf tenderness - *Routine Neurological Exam Present: alert, oriented X3 Assessment and Plan (1) Altered mental status Current visit: Yes Status: Acute Category: Medical Code(s): R41.82 - Altered mental status, unspecified (2) Leukocytosis Current visit: Yes Status: Acute Category: Medical Code(s): D72.829 - Elevated white blood cell count, unspecified (3) Weakness Current visit: No Status: Acute Category: Medical Code(s): R53.1 - Weakness (4) Anorexia Current visit: No Status: Acute Category: Medical Code(s): R63.0 - Anorexia (5) Post-cholecystectomy syndrome Current visit: No Status: Acute Category: Medical Code(s): K91.5 - Postcholecystectomy syndrome (6) Weight loss Current visit: No Status: Acute Category: Medical Code(s): R63.4 - Abnormal weight loss (7) CHF (congestive heart failure) Current visit: No Status: Chronic Qualifiers: Heart failure type: unspecified Heart failure chronicity: unspecified Qualified Code(s): I50.9 - Heart failure, unspecified Category: Medical Code(s): I50.9 - Heart failure, unspecified (8) COPD (chronic obstructive pulmonary disease) Current visit: No Status: Chronic Qualifiers: COPD type: unspecified COPD Qualified Code(s): J44.9 - Chronic obstructive pulmonary disease, unspecified Category: Medical Code(s): J44.9 - Chronic obstructive pulmonary disease, unspecified (9) Cardiac pacemaker in situ Current visit: No Status: Chronic Category: Medical Code(s): Z95.0 - Presence of cardiac pacemaker (10) Carotid artery stenosis Current visit: No Status: Chronic Qualifiers: Laterality: bilateral Qualified Code(s): I65.23 - Occlusion and stenosis of bilateral carotid arteries Category: Medical Code(s): I65.29 - Occlusion and stenosis of unspecified carotid artery (11) H/O carotid endarterectomy Current visit: No Status: Chronic Category: Surgical Code(s): Z98.890 - Other specified postprocedural states (12) Hyperlipidemia Current visit: No Status: Chronic Qualifiers: Hyperlipidemia type: mixed hyperlipidemia Qualified Code(s): E78.2 - Mixed hyperlipidemia Category: Medical Code(s): E78.5 - Hyperlipidemia, unspecified (13) Hypertension Current visit: No Status: Chronic Qualifiers: Hypertension type: essential hypertension Qualified Code(s): I10 - Essential (primary) hypertension Category: Medical Code(s): I10 - Essential (primary) hypertension (14) Moderate to sever
--- NOTE | 2019-11-14 15:21 | PC.NURSE ---
Pt has rested in bed this shift. He has not tolerated his clear diet. He had an episode of vomiting after lunch. Zofran given with patient reporting relief. Family has been in to see patient per Dr Yee request. Family visit appeared to lift patients spirits. He has utilized a urinal at the bedside with 1 assist. Bhavins to BLE. Waiting for bed at . Accepting is Dr Anaya. Will continue to monitor.
[2019-11-14 15:52] VITALS: BP 130/60; PULSE 75; RESP 16; TEMP 36.9; O2SAT 94
--- NOTE | 2019-11-14 16:12 | PC.NURSE ---
Left message with Dr Yee office that patient has a bed assignment. Report called to [facility]
--- NOTE | 2019-11-14 17:58 | PC.NURSE ---
Notified ambulance of transport
--- NOTE | 2019-11-14 18:45 | PC.NURSE ---
Report given to ambulance personnel
--- NOTE | 2019-11-15 15:00 | HMH.DCSUM ---
General - General Admission date:: 11/09/19 <AnaMohit - 11/23/19 16:51> 11/09/19 <Sadie Rock - 11/15/19 15:15> Discharge date: 11/14/19 <ShwetaSadie - 11/15/19 15:15> HPI HPI: Mr. Jeffries is a 79-year-old male with a history of hypertension, hyperlipidemia, carotid artery disease, severe COPD, sick sinus syndrome, and pulmonary hypertension who just recently had his gallbladder removed on 09/15/2019. Since this time his health has declined. He was seen in the office of [facility] at the beginning of September and had been vomiting since his surgery as well as having fatigue and weight loss. He was admitted at that time for evaluation and treatment. He received IV fluids and a repeat CT of the abdomen showed nothing acute, but did show bibasilar infiltrates consistent with a possible early pneumonia, even though he was completely asymptomatic and had a normal white blood cell count. While he was in the hospital, he began to eat a little bit better and was discharged home on oral antibiotics and Remeron for appetite stimulation. After going home, he began sleeping for numerous hours straight, therefore his Remeron was discontinued. He continued to lose weight and feel weak. He had persistent nausea and he was seen in the office on 10/12/2019 and was started on some Megace. He also had a heme positive stool while in the hospital and was referred to Dr. Montana. It was felt he may need an endoscopy. He completed his initial antibiotics and continued to have weakness and nausea as well as poor appetite. He had also developed a cough and some shortness of breath and was started on doxycycline for possible pneumonia. He had a chest x-ray and it showed COPD with nothing acute. He did see Dr. Montana but did not feel the appointment was beneficial. He was started on Nexium and simethicone. His blood pressures began running low and his amlodiopine and hydralazine were discontinued. His lisinopril dose was decreased as well. He was anemic and his iron was low, therefore he was started on iron. He became so weak he was seen in the emergency room on 11/05/2019 with a fairly unremarkable work-up. He followed up in the office of [facility] today still complaining of generalized weakness and also a few episodes of confusion. His stated he was having poor oral intake. His blood pressure was low at 98/58 and his mental status was altered in the office. There were no obvious focal neurologic findings on his exam, but Dr. Perez felt he was likely hypovolemic. His white blood cell count was elevated with no obvious source of infection. He was admitted for further evaluation and treatment. <Sadie Rock - 11/15/19 15:15> Hospital Course Hospital Course: The patient's initial chest x-ray showed a mixed response with improved left basilar airspace disease with new atelectasis versus infiltrate in the right lung base. He was admitted and started on IV fluids. His mental status began improving. Dr. Perez felt his altered mental status was most likely related to dehydration, hypovolemia, and hypotension however, with a history of carotid disease, TIA was also in the differential. He had been experiencing some abdominal pain, therefore an abdominal and pelvic CT was ordered. It showed some thickening of the distal aspect of the antrum and pyloric region of the stomach which could be neoplastic versus inflammatory. Radiology felt an upper endoscopy was recommended. There was mild gastric distention as well. The patient's mental status did improve. His H&H decreased and this was likely dilutional. It was monitored and remained stable. Surgery was consulted for possible EGD. He was seen in consultation by Dr. Leblanc who performed an EGD on 11/10/2019. 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
[2019-11-16 05:53] LABS: Iron 22 ug/dL (38-169); UIBC 238 ug/dL (111-343)
[2019-11-16 10:31] LABS: Iron Saturation 8 % (15-55)
== END 2019-11-14 18:46 | disposition short-term general hospital (02) ==
PROVIDERS: Physician Assistant; Surgery; Admitting Provider Family Medicine; PCP Family Medicine; Visit Provider Family Medicine
PROC: 0DJ08ZZ Inspection of Upper Intestinal Tract, Via Natural or Artificial Opening Endoscopic (ICD-10-PCS; CPT 43235; principal; 2019-11-10 11:45)
DX: C16.3 Malignant neoplasm of pyloric antrum (principal); K31.1 Adult hypertrophic pyloric stenosis; K44.9 Diaphragmatic hernia without obstruction or gangrene; I11.0 Hypertensive heart disease with heart failure; I50.9 Heart failure, unspecified; I27.20 Pulmonary hypertension, unspecified; I49.5 Sick sinus syndrome; Z87.891 Personal history of nicotine dependence; I65.23 Occlusion and stenosis of bilateral carotid arteries; Z95.0 Presence of cardiac pacemaker; J44.9 Chronic obstructive pulmonary disease, unspecified
CPT/HCPCS: 43239; 36415; 71045; 71046; 74178; 80048; 80053; 81001; 82550; 82553; 83540; 83550; 83735; 84443; 84484; 85025; 88305; 97161; G0378; J1956; J2405; Q9967

== ENCOUNTER 2021-03-28 09:36 | Inpatient (IN) | payer MEDICARE, OTHER, SELFPAY ==
[2021-03-28] VITALS (9 sets, daily range): BP systolic 103–139; BP diastolic 55–100; PULSE 76–105; RESP 18–20; TEMP 36.5–37.2; O2SAT 92–99; BMI 26.6; BMI 25.8; BMI 17.6
--- NOTE | 2021-03-28 09:40 | CT_ITS ---
PROCEDURE: CT HEAD/BRAIN WO CON CLINICAL INDICATION: possible stroke COMPARISON: No exams were available for comparison TECHNIQUE: Axial images obtained. All CT scans at the facility use one or more dose reduction, viz: automated exposure control, ma/kV adjustment per patient size (including targeted exams where dose is matched to indication, i.e. head), or iterative reconstruction technique. FINDINGS: No midline shift, mass effect, intracranial hemorrhage, hydrocephalus, or extra-axial fluid collection is evident. The calvarium has an unremarkable appearance. No mastoid effusion. No sinus air-fluid level. IMPRESSION: No acute intracranial finding Dictated by: Dr. Javad Montalvo MD 03/28/2021 09:59 Dr. Javad Montalvo MD in [place] 03/28/2021 09:59
--- NOTE | 2021-03-28 09:41 | HMH.EDGENADL ---
ED Disposition Clinical Impression: Community acquired pneumonia Qualifiers: Laterality: left Lung location: lower lobe of lung Qualified Code(s): J18.9 - Pneumonia, unspecified organism Disposition: Admitted As Inpatient Condition on Discharge: Fair Referrals: Provider,Referral, [Primary Care Provider] - - Critical Care Critical Care Time: No Attestation: On , the high probability of a clinically significant, sudden or life threatening deterioration of the following system(s) required my full and direct attention, intervention and personal management. The time I documented below is in addition to time spent performing reported procedures but includes the following listed in this critical care notation. Medical Decision Making - Medical Records Medical records reviewed: Yes: I reviewed the patient's medical records. - Julian Inquiry Pt receiving controlled substance: No Vital Signs: 03/28/21 09:38 Temperature 98.9 F Temperature Source Oral Pulse Rate [Right] 76 Respiratory Rate 18 Blood Pressure [Right Arm] 139/100 H Blood Pressure Mean [Right Arm] 113 02 Sat by Pulse Oximetry 98 Oxygen Delivery Method Room Air - Lab Data Lab Results 03/28/21 10:00: Urine Color Yellow, Urine Appearance Clear, Urine pH 8.0, Ur Specific [place] 1.015, Urine Protein Negative, Urine Glucose (UA) Negative, Urine Ketones Negative, Urine Blood Negative, Urine Nitrate Negative, Urine Bilirubin Negative, Urine Urobilinogen >=8.0, Ur Leukocyte Esterase Negative, Urine RBC None, Urine WBC 3-5, Ur Squamous Epith Cells Occasional, Urine Bacteria None 03/28/21 10:00: WBC 18.0 H, RBC 4.86, Hgb 14.6, Hct 45.8, MCV 94.4 H, MCH 30.1, MCHC 31.9, RDW 15.1, Plt Count 217, MPV 8.6, Neut % (Auto) 86.5 H, Lymph % (Auto) 7.7 L, [place] % (Auto) 5.0, Eos % (Auto) 0.4, Baso % (Auto) 0.4, Neut # (Auto) 15.6 H, Lymph # (Auto) 1.4, [place] # (Auto) 0.9, Eos # (Auto) 0.1, Baso # (Auto) 0.1, Total Counted 100, Neutrophils % (Manual) 79 H, Lymphocytes % (Manual) 16, Monocytes % (Manual) 5, Platelet Estimate Normal, RBC Morphology Normal 03/28/21 10:00: Sodium 140, Potassium 4.7, Chloride 103, Carbon Dioxide 26, Anion Gap 15.7 H, BUN 16, Creatinine 1.00, Estimated Creat Clear 65, Estimated GFR 72, Est GFR ( Amer) 87, Glucose 102 H, Calcium 9.5, Phosphorus 3.3, Magnesium 1.8, Total Bilirubin 1.0, AST 45, ALT 15, Alkaline Phosphatase 98, Troponin I 0.02, Total Protein 7.8, Albumin 4.0, Globulin 3.8 H, Albumin/Globulin Ratio 1.1 03/28/21 10:00: Lactate 1.5 Result diagrams: 03/28/21 10:00 03/28/21 10:00 Orders (Tests/Meds): ED MEDICATIONS Generic Name Dose Route Start Last Admin Trade Name Freq PRN Reason Stop Dose Admin Ceftriaxone Sodium 2 gm/ 50 mls @ 100 mls/hr 03/28/21 10:45 03/28/21 10:50 Sodium Chloride IV 04/01/21 11:14 100 mls/hr Q24H JUANA Administration Discontinued Medications Generic Name Dose Route Start Last Admin Trade Name Freq PRN Reason Stop Dose Admin Azithromycin 500 mg/ Sodium 250 mls @ 250 mls/hr 03/28/21 10:45 Chloride IV 03/28/21 10:46 ONCE ONE ORDERS Category Date Time Status Comprehensive Metabolic Panel Stat Lab 03/28/21 10:00 Results Magnesium Stat Lab 03/28/21 10:00 Results Phosphorous Stat Lab 03/28/21 10:00 Results TSH [Thyroid Stimulating Hormone] Stat Lab 03/28/21 10:00 Results Troponin I Q3H Lab 03/28/21 13:00 Ordered Troponin I Q3H Lab 03/28/21 16:00 Ordered Troponin I Stat Lab 03/28/21 10:00 Results ECG Request by /Yoel Stat Y 03/28/21 09:49 Ordered Medical Decision Narrative: Patient is a 81-year-old male who presents the ED today for evaluation of altered mental status and weakness at home. Differential diagnosis is broad and includes urinary tract infection, stroke, pneumonia, intra-abdominal infection, polypharmacy, viral infection, abscess. BGL tested on initial eval and is 100. Will evaluate patient under stroke protocol as there was some concern patien
--- NOTE | 2021-03-28 09:49 | XR_ITS ---
PROCEDURE: XR CHEST PORTABLE CLINICAL HISTORY: AMS, pneumonia concern COMPARISON: CT CHESTW CT chest w con from 08/02/2018 CR XR CHEST AP from 11/05/2019 CR XR CHEST PORTABLE from 11/09/2019 CR XR CHEST 2V from 11/11/2019 FINDINGS: The cardiomediastinal silhouette and pulmonary vascularity are within normal limits. The left-sided cardiac pacemaker is again noted with dual chamber electrodes both in good position. The lungs are clear without infiltrates, suspicious nodules, or pleural effusions. No acute bony abnormalities. There are patchy ill-defined opacities in the left infrahilar region and left lower lobe consistent with acute pneumonic infiltrate probably of superimposed on underlying chronic changes. There is minimal atelectasis at the right base. IMPRESSION: Patchy ill-defined pneumonic infiltrate left infrahilar region and left lower lobe Dictated by: Dr. Javad Montalvo MD 03/28/2021 10:25 Dr. Javad Montalvo MD in [place] 03/28/2021 10:25
--- NOTE | 2021-03-28 09:49 | XR_ITS ---
PROCEDURE: XR KUB CLINICAL INDICATION: AMS, concern for obstruction COMPARISON: CT CT ABDOMEN PELVIS WO/W CON from 11/10/2019 FINDINGS: Gas pattern-there is an increased amount of large and small bowel gas in nonobstructive. There are surgical clips right upper quadrant likely previous cholecystectomy. No evidence of free air. No abnormal soft tissue there are skin fold shadows both sides of mid abdomen. IMPRESSION: Mildly abnormal non-specific bowel gas pattern, mild degree of gastroenteritis is a possibility Dictated by: Dr. Javad Montalvo MD 03/28/2021 10:32 Dr. Javad Montalvo MD in [place] 03/28/2021 10:32
[2021-03-28 10:13] LABS: Microscopic, Urine URINE MICROSCOPIC (MICROSCOPIC)
[2021-03-28 10:15] LABS: Appearance,Urine CLEAR (Clear); Bilirubin,Urine Negative (Negative); Blood, Urine Negative (Negative); Color,Urine YELLOW (Yellow); Glucose,Urine (UA) Negative (Negative); Ketones,Urine Negative (Negative); Leukocyte Esterase,Urine Negative (Negative); Nitrate,Urine Negative (Negative); Protein,Urine Negative (Negative); Specific Gravity, Urine 1.015 (1.005-1.030); Urobilinogen,Urine >=8.0 EU/dl (0.2)
[2021-03-28 10:19] LABS: Basophils # 0.1 K/mm3 (0-0.2); Basophils % 0.4 % (0.1-2.0); Eosinophils # 0.1 K/mm3 (0.0-0.4); Eosinophils % 0.4 % (0.1-12.0); Hematocrit 45.8 % (42.0-52.0); Hemoglobin 14.6 g/dL (14.1-18.0); Lymphocytes # 1.4 K/mm3 (0.7-4.5); Lymphocytes % 7.7 % (10-50); Mean Corpuscular HGB Conc 31.9 g/dL (31.8-35.4); Mean Corpuscular Hemoglobin 30.1 pg (27.0-31.2); Mean Corpuscular Volume 94.4 fl (80-94); Mean Platelet Volume 8.6 fl (7.4-10.4); Monocytes # 0.9 K/mm3 (0.1-1.0); Neutrophils # 15.6 K/mm3 (1.8-7.8); Neutrophils % 86.5 % (37.0-80.0); Platelet Count 217 K/mm3 (142-424); Red Blood Count 4.86 M/mm3 (4.60-6.20); Red Cell Distribution Width 15.1 % (11.5-17.5)
[2021-03-28 10:21] LABS: MANUAL DIFFERENTIAL MANUAL DIFFERENTIAL (MANUAL DIFF)
[2021-03-28 10:26] LABS: Chloride 103 mmol/L (98-107); Potassium 4.7 mmoL/L (3.5-5.1); Sodium 140 mmol/L (136-145)
[2021-03-28 10:29] LABS: Alanine Aminotransferase 15 U/L (12-78); Albumin/Globulin Ratio 1.1 (1.1-1.8); Alkaline Phosphatase 98 U/L (38-126); Anion Gap 15.7 mEq/L (5-15); Aspartate Amino Transferase 45 U/L (17-59); Blood Urea Nitrogen 16 mg/dl (9-20); Carbon Dioxide 26 mmol/L (22.0-30.0); Creatinine Clearance Estimated 65 mL/min (50-200); Estimated Glomerular Filt Rate 72 ml/min (>60); GFR (African American) 87 ML/MIN (>60); Globulin 3.8 g/dL (1.3-3.2); Phosphorous 3.3 mg/dl (2.5-4.5); Squamous Epithelial Cell,Urine Occasional #/hpf (0-5); Total Protein,Serum 7.8 g/dl (6.3-8.2)
[2021-03-28 10:30] LABS: Calcium 9.5 mg/dl (8.4-10.2); Glucose 102 mg/dl (74-100); Lymphocytes % 16 % (10-50); Magnesium 1.8 mg/dl (1.6-2.3); Monocytes % 5 % (2-9); Neutrophils % 79 % (42-76); Platelet Estimate Normal; RBC Morphology Normal; Total Cells Counted 100
[2021-03-28 10:31] LABS: Lactic Acid 1.5 mmol/L (0.7-2.1)
[2021-03-28 10:46] LABS: Troponin I 0.02 ng/ml (0.00-0.034)
[2021-03-28 11:00] LABS: Thyroid Stimulating Hormone 1.74 uIU/mL (0.465-4.68)
--- NOTE | 2021-03-28 11:02 | PC.NURSE ---
Dr Lizarraga speaking with Dr Perez
--- NOTE | 2021-03-28 11:15 | PC.NURSE ---
DR. FELIZ REQUESTING BLOOD CULTURES, MD INFORMED THAT CEFTRIAXONE HAS ALREADY BEEN GIVEN. STILL WANTS CULTURES DRAWN.
[2021-03-28 11:22] LABS: Coronavirus 19, PCR Not Detected (NotDetected); Influenza A, PCR Not Detected (NotDetected); Influenza B, PCR Not Detected (NotDetected)
--- NOTE | 2021-03-28 12:00 | PC.NURSE ---
Gave report to Enedina Morris RN at this time
--- NOTE | 2021-03-28 13:09 | HMH.PHAVTE ---
[facility] Pharmacy VTE Monitoring - Patient Demographics Admission date: 03/28/21 Report Date: 03/28/21 Time: 13:09 Allergies/Adverse Reactions: Patient Allergies No Known Drug Allergies [NKDA] Allergy (Unknown, Verified 12/28/19 13:25) Height: 1.73 m Weight: 77.111 kg Patient Problems: Current Active Problems Community acquired pneumonia (Acute) - VTE Risk Labs: VTE Related Lab Results Hgb 14.6 g/dL (14.1-18.0) 03/28/21 10:00 Hct 45.8 % (42.0-52.0) 03/28/21 10:00 Plt Count 217 K/mm3 (142-424) 03/28/21 10:00 BUN 16 mg/dl (9-20) 03/28/21 10:00 Creatinine 1.00 mg/dl (0.66-1.25) 03/28/21 10:00 Estimated Creat Clear 65 mL/min (50-200) 03/28/21 10:00 Clinical Trial Participant: No - Prophylaxis VTE Prophylaxis Ordered?: Yes Types of VTE Prophylaxis: TEDS Knee High
--- NOTE | 2021-03-28 13:30 | HMH.HP ---
*Admission Date: 03/28/21 <Joyce Bedoya 03/28/21 13:48> *Chief complaint: weakness with a fall ;AMS <Joyce Bedoya 03/28/21 13:48> *History of present illness: Mr. Jeffries is a 80-year-old male patient with a history of hypertension, hyperlipidemia, prostatitis, kidney stones, coronary artery disease, bladder tumor, severe COPD., Sick sinus syndrome, moderate pulmonary hypertension, and gastric stomach cancer who presented to the emergency room today after a fall. He states he has been very weak and had difficulty with walking in the last couple of days. He states today his legs would just not hold him up. He also has a congested cough. Patient is a poor historian and family is not present. With evaluation in the emergency room he had a stat CT of the head as per stroke protocol. CT of the head showed no acute intracranial findings. Chest x-ray showed patchy ill-defined pneumonic with infiltrate in the left infrahilar region and left lower lobe. KUB revealed mildly abnormal nonspecific bowel gas pattern with mild degree of gastroenteritis as a possibility. Other evaluation in the ER revealed white blood cell count elevated at 18,000. Patient was started on Rocephin and Zithromax for pneumonia. He was admitted for further evaluation and treatment. <Joyce Bedoya 03/28/21 17:18> [facility] History Medical History: Reports:: Cancer (gastric), Cardiomyopathy, Carotid Stenosis, Congestive Heart Failure, Chronic Obstructive Pulmonary Disease (COPD), Hyperlipidemia, Hypertension, Internal Pacemaker, Kidney Stones Denies:: Diabetes Mellitus Type 1, Diabetes Mellitus Type 2, MRSA, Seizures <BedoyaJoyce 03/28/21 17:18> *Have you ever received a pneumonia vaccine?: Yes <Joyce Bedoya 03/28/21 13:48> *Have you received a flu vaccine this season?: Yes <AurelianoJoyce 03/28/21 13:48> Other Medical History: Reports: Other. 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 <Bedoya,Joyce 03/28/21 13:48> - *Social History Smoking Status: Former smoker <Bedoya,Joyce 03/28/21 13:48> Tobacco Type: cigarettes <AurelianoJoyce 03/28/21 13:48> # Packs/Day (cigarettes): 1 <AurelianoJoyce 03/28/21 13:48> #Yrs smoked (if former smoker): 25 <AurelianoJoyce 03/28/21 13:48> Alcohol Intake: never <AurelianoJoyce 03/28/21 13:48> Substance Use Type: denies use <Bedoya,Joyce 03/28/21 13:48> *Occupational Status:: retired <Bedoya,Joyce 03/28/21 13:48> Housing: house <Bedoya,Joyce 03/28/21 13:48> Household Members: spouse <Bedoya,Joyce 03/28/21 13:48> *Travel in the last 8 weeks: None <Bedoya,Joyce 03/28/21 17:18> Family Hx:: Unable to obtain <AurelianoJoyce 03/28/21 17:18> Review of Systems - Constitutional Reports lack of energy <AurelianoJoyce 03/28/21 13:48> - Eyes Denies change in vision <Joyce Bedoya 03/28/21 13:48> - ENT Denies ear pain, Denies sore throat, Denies dizziness <Joyce Bedoya 03/28/21 13:48> - *Cardiovascular Reports chest pain, Denies shortness of breath, Denies leg swelling <Joyce Bedoya 03/28/21 13:48> - *Respiratory Reports cough (Congested) <Joyce Bedoya 03/28/21 13:48> - *Gastrointestinal Reports loose stools, Reports incontinent of stools, Denies abdominal pain, Denies nausea, Denies vomiting <Joyce Bedoya - 03/28/21 13:48> Comments: Has not been able to eat well <Joyce Bedoya - 03/28/21 13:48> - *Genitourinary Reports difficult
[2021-03-28 14:02] LABS: Troponin I 0.01 ng/ml (0.00-0.034)
[2021-03-28 16:40] LABS: Troponin I 0.01 ng/ml (0.00-0.034)
[2021-03-29] VITALS: BP 101/61; PULSE 53; RESP 18; TEMP 37.3; O2SAT 95
[2021-03-29 04:00] VITALS: BP 134/81; PULSE 72; RESP 15; TEMP 36.6; O2SAT 94
[2021-03-29 05:06] VITALS: BMI 17.2
--- NOTE | 2021-03-29 06:19 | PC.NURSE ---
pt has rested well since taking over care, remains on room air, no complaints of pain or SOA
[2021-03-29 06:20] LABS: Basophils # 0.1 K/mm3 (0-0.2); Basophils % 0.7 % (0.1-2.0); Eosinophils % 0.4 % (0.1-12.0); Hematocrit 46.9 % (42.0-52.0); Hemoglobin 14.8 g/dL (14.1-18.0); Lymphocytes % 23.6 % (10-50); Mean Corpuscular HGB Conc 31.5 g/dL (31.8-35.4); Mean Corpuscular Hemoglobin 30.1 pg (27.0-31.2); Mean Corpuscular Volume 95.8 fl (80-94); Monocytes # 0.7 K/mm3 (0.1-1.0); Monocytes % 7.5 % (1.7-9.3); Neutrophils # 5.8 K/mm3 (1.8-7.8); Neutrophils % 67.8 % (37.0-80.0); Platelet Count 179 K/mm3 (142-424); White Blood Count 8.6 K/mm3 (4.8-10.8)
[2021-03-29 07:09] LABS: Anion Gap 15.8 mEq/L (5-15); Blood Urea Nitrogen 19 mg/dl (9-20); Calcium 9.5 mg/dl (8.4-10.2); Carbon Dioxide 23 mmol/L (22.0-30.0); Chloride 105 mmol/L (98-107); Creatinine Clearance Estimated 46 mL/min (50-200); Estimated Glomerular Filt Rate 81 ml/min (>60); GFR (African American) 98 ML/MIN (>60); Glucose 74 mg/dl (74-100); Potassium 4.8 mmoL/L (3.5-5.1); Sodium 139 mmol/L (136-145)
[2021-03-29 08:00] VITALS: BP 124/68; PULSE 87; RESP 18; TEMP 36.8; O2SAT 95
--- NOTE | 2021-03-29 09:12 | HMH.ACPN2 ---
Internal Medicine - PN: Subj *Date: 03/29/21 *Time: 09:12 Interval history: He had an uneventful night and rested well. No new complaints this morning except that he just feels weak. Denies shortness of breath. Minimal cough. Denies chest pain. He is eating some. Exam Vital signs and Labs for Last 24 Hours: Temp Pulse Resp BP Pulse Ox 98.3 F 87 18 124/68 95 03/29/21 08:00 03/29/21 08:00 03/29/21 08:00 03/29/21 08:00 03/29/21 08:00 Laboratory Results - last 24 hr 03/28/21 10:00: Urine Color Yellow, Urine Appearance Clear, Urine pH 8.0, Ur Specific [place] 1.015, Urine Protein Negative, Urine Glucose (UA) Negative, Urine Ketones Negative, Urine Blood Negative, Urine Nitrate Negative, Urine Bilirubin Negative, Urine Urobilinogen >=8.0, Ur Leukocyte Esterase Negative, Urine RBC None, Urine WBC 3-5, Ur Squamous Epith Cells Occasional, Urine Bacteria None 03/28/21 10:00: WBC 18.0 H, RBC 4.86, Hgb 14.6, Hct 45.8, MCV 94.4 H, MCH 30.1, MCHC 31.9, RDW 15.1, Plt Count 217, MPV 8.6, Neut % (Auto) 86.5 H, Lymph % (Auto) 7.7 L, [place] % (Auto) 5.0, Eos % (Auto) 0.4, Baso % (Auto) 0.4, Neut # (Auto) 15.6 H, Lymph # (Auto) 1.4, [place] # (Auto) 0.9, Eos # (Auto) 0.1, Baso # (Auto) 0.1, Total Counted 100, Neutrophils % (Manual) 79 H, Lymphocytes % (Manual) 16, Monocytes % (Manual) 5, Platelet Estimate Normal, RBC Morphology Normal 03/28/21 10:00: Sodium 140, Potassium 4.7, Chloride 103, Carbon Dioxide 26, Anion Gap 15.7 H, BUN 16, Creatinine 1.00, Estimated Creat Clear 65, Estimated GFR 72, Est GFR ( Amer) 87, Glucose 102 H, Calcium 9.5, Phosphorus 3.3, Magnesium 1.8, Total Bilirubin 1.0, AST 45, ALT 15, Alkaline Phosphatase 98, Troponin I 0.02, Total Protein 7.8, Albumin 4.0, Globulin 3.8 H, Albumin/Globulin Ratio 1.1, TSH 1.74 03/28/21 10:00: Lactate 1.5 03/28/21 11:12: SARS-CoV-2 (PCR) Not detected, Influenza A Untype (PCR) Not detected, Influenza Type B (PCR) Not detected 03/28/21 13:30: Troponin I 0.01 03/28/21 16:00: Troponin I 0.01 03/29/21 05:40: WBC 8.6 D, RBC 4.90, Hgb 14.8, Hct 46.9, MCV 95.8 H, MCH 30.1, MCHC 31.5 L, RDW 15.0, Plt Count 179, MPV 9.0, Neut % (Auto) 67.8, Lymph % (Auto) 23.6, [place] % (Auto) 7.5, Eos % (Auto) 0.4, Baso % (Auto) 0.7, Neut # (Auto) 5.8, Lymph # (Auto) 2.0, [place] # (Auto) 0.7, Eos # (Auto) 0.0, Baso # (Auto) 0.1 03/29/21 05:40: Sodium 139, Potassium 4.8, Chloride 105, Carbon Dioxide 23, Anion Gap 15.8 H, BUN 19, Creatinine 0.90, Estimated Creat Clear 46, Estimated GFR 81, Est GFR ( Amer) 98, Glucose 74 D, Calcium 9.5 I & O for Last 24 hours: Intake & Output 03/26/21 03/27/21 03/28/21 03/29/21 11:59 11:59 11:59 11:59 Intake Total 720 / 720 Output Total 275 / 275 Balance 445 / 445 Weight 170 lb 120 lb 8 oz Narrative: He is alert and oriented. No respiratory distress. Breath sounds are generally diminished with rales in the left lung. No wheezes. Heart is regular. Abdomen is soft and nondistended with no tenderness. Assessment and Plan (1) Community acquired pneumonia Status: Acute Qualifiers: Laterality: left Lung location: lower lobe of lung Qualified Code(s): J18.9 - Pneumonia, unspecified organism Category: Medical Code(s): J18.9 - Pneumonia, unspecified organism (2) Presence of permanent cardiac pacemaker Status: Acute Category: Medical Code(s): Z95.0 - Presence of cardiac pacemaker (3) Adenocarcinoma Status: Acute Category: Medical Code(s): C80.1 - Malignant (primary) neoplasm, unspecified (4) Altered mental status Status: Acute Category: Medical Code(s): R41.82 - Altered mental status, unspecified (5) Leukocytosis Status: Acute Category: Medical Code(s): D72.829 - Elevated white blood cell count, unspecified (6) COPD (chronic obstructive pulmonary disease) Status: Chronic Qualifiers: COPD type: unspecified COPD Qualified Code(s): J44.9 - Chronic obstructive pulmonary disease, unspecified Asha
[2021-03-29 11:47] VITALS: BP 116/65; PULSE 70; RESP 20; TEMP 37.2; O2SAT 94
--- NOTE | 2021-03-29 15:30 | PC.NURSE ---
PT IS SITTING UP IN THE CHAIR. ALERT TO SELF ONLY. PT NEEDED ENCOURAGEMENT TO GET OOB THIS SHIFT. EATING AND DRINKING WELL. LUNG SOUNDS DIMINISHED. ABDOMEN SOFT/NON TENDER WITH ACTIVE BOWEL SOUNDS. TURNED AND REPOSITIONED Q2H WHILE IN BED. REDNESS NOTED TO COCCYX WITH DRESSING C/D/I. NO SWELLING NOTED TO BLE. VSS. WILL CONTINUE TO MONITOR.
[2021-03-29 15:57] VITALS: BP 123/66; PULSE 72; RESP 18; TEMP 36.9; O2SAT 93
[2021-03-29 19:47] VITALS: BP 124/72; PULSE 97; RESP 16; TEMP 36.4; O2SAT 91
[2021-03-30] VITALS: BP 119/64; PULSE 79; RESP 16; TEMP 36.7; O2SAT 94
--- NOTE | 2021-03-30 02:53 | PC.NURSE ---
Pt is A/O to self. Pt will ambulate to bathroom with stand by assist. Pt remained very confused t/o shift, trying to get up multiple times. Bed alarm in place for safety measure. Admin meds per MAR. VSS, no concerns at this time.
[2021-03-30 04:00] VITALS: BP 141/72; PULSE 90; RESP 16; TEMP 36.4; O2SAT 92
[2021-03-30 05:36] VITALS: BMI 17.6
[2021-03-30 08:00] VITALS: BP 107/70; PULSE 85; RESP 18; TEMP 36.7; O2SAT 92
--- NOTE | 2021-03-30 08:15 | XR_ITS ---
PROCEDURE INFORMATION: Exam: XR Chest Exam date and time: 03/30/2021 8:15 AM Age: 81 years old Clinical indication: Condition or disease; Other: Pneumonia; Additional info: F/u pneumonia TECHNIQUE: Imaging protocol: XR of the chest. Views: 1 view. COMPARISON: CR XR CHEST PORTABLE 03/28/2021 10:10 AM FINDINGS: Tubes, catheters and devices: Left pacemaker. Lungs: Ill-defined and streaky left lower lung opacity. Pleural spaces: Unremarkable. No pleural effusion. No pneumothorax. Heart/Mediastinum: Unremarkable. No cardiomegaly. Bones/joints: Unremarkable. Intraperitoneal space: Right upper quadrant clips. IMPRESSION: 1. Suspicion for ill-defined and streaky left lower lung atelectasis/airspace disease. 2. Left pacemaker.
--- NOTE | 2021-03-30 08:45 | P.PN_ITS ---
Internal Medicine - PN: Subj *Date: 03/30/21 *Time: 08:45 Interval history: He had a restless night with increased confusion. He is sitting up in the chair this morning and is insisting on going home. He has been ambulating in the room. No respiratory issues. Exam Vital signs and Labs for Last 24 Hours: Temp Pulse Resp BP Pulse Ox 98.0 F 85 18 107/70 L 92 L 03/30/21 08:00 03/30/21 08:00 03/30/21 08:00 03/30/21 08:00 03/30/21 08:00 I & O for Last 24 hours: Intake & Output 03/27/21 03/28/21 03/29/21 03/30/21 11:59 11:59 11:59 11:59 Intake Total 720 / 720 840 / 840 Output Total 275 / 275 Balance 445 / 445 840 / 840 Weight 170 lb 120 lb 8 oz 123 lb 8 oz Narrative: He is sitting up in the chair. He is oriented to name and place. No respiratory distress. Color is normal. Chest reveals rales in the left base. No wheezes. Extremities no edema. Assessment and Plan (1) Community acquired pneumonia Status: Acute Qualifiers: Laterality: left Lung location: lower lobe of lung Qualified Code(s): J18.9 - Pneumonia, unspecified organism Category: Medical Code(s): J18.9 - Pneumonia, unspecified organism (2) Presence of permanent cardiac pacemaker Status: Acute Category: Medical Code(s): Z95.0 - Presence of cardiac pacemak er (3) Adenocarcinoma Status: Acute Category: Medical Code(s): C80.1 - Malignant (primary) neoplasm, unspecified (4) Altered mental status Status: Acute Category: Medical Code(s): R41.82 - Altered mental status, unspecified (5) Leukocytosis Status: Acute Category: Medical Code(s): D72.829 - Elevated white blood cell count, unspecified (6) COPD (chronic obstructive pulmonary disease) Status: Chronic Qualifiers: COPD type: unspecified COPD Qualified Code(s): J44.9 - Chronic obstructive pulmonary disease, unspecified Category: Medical Code(s): J44.9 - Chronic obstructive pulmonary disease, unspecified (7) Carotid artery stenosis Status: Chronic Qualifiers: Laterality: bilateral Qualified Code(s): I65.23 - Occlusion and stenosis of bilateral carotid arteries Category: Medical Code(s): I65.29 - Occlusion and stenosis of unspecified carotid artery (8) Hyperlipidemia Status: Chronic Qualifiers: Hyperlipidemia type: mixed hyperlipidemia Qualified Code(s): E78.2 - Mixed hyperlipidemia Category: Medical Code(s): E78.5 - Hyperlipidemia, unspecified (9) Hypertension Status: Chronic Qualifiers: Hypertension type: essential hypertension Category: Medical Code(s): I10 - Essential (primary) hypertension (10) Moderate to severe pulmonary hypertension Status: Chronic Category: Medical Code(s): I27.20 - Pulmonary hypertension, unspecified - Assessment and plan all Dx Assessment and Plan for all problems:: Clinically improved in terms of his pneumonia but remains confused with sundowning behaviors overnight. White blood cell count is now normal. We will continue current antibiotics and repeat chest x-ray today.
[2021-03-30 11:15] VITALS: BP 96/56; PULSE 72; RESP 18; TEMP 36.4; O2SAT 90
--- NOTE | 2021-03-30 14:45 | PC.NURSE ---
PT IS RESTING IN BED. NO COMPLAINTS OF DISCOMFORT. ALERT TO SELF ONLY. PT WAS HOPING TO GET TO GO HOME THIS SHIFT BUT WAS AGREEABLE WITH STAYING UNTIL TOMORROW. TOLERATED SITTING UP IN THE CHAIR FOR SEVERAL HOURS THIS MORNING. EATING AND DRINKING WELL. ABDOMEN SOFT/NON TENDER WITH ACTIVE BOWEL SOUNDS. VSS. WILL CONTINUE TO MONITOR.
[2021-03-30 15:17] VITALS: BP 95/50; PULSE 62; RESP 18; TEMP 36.4; O2SAT 94
[2021-03-30 20:00] VITALS: BP 107/58; PULSE 70; RESP 16; TEMP 36.7; O2SAT 95
[2021-03-31] VITALS: BP 114/65; PULSE 71; RESP 16; TEMP 36.6; O2SAT 96
--- NOTE | 2021-03-31 03:19 | PC.NURSE ---
No acute changes t/o shift. Pt is A/O to self only. Pt rested well all shift. Remains on RA with stats >90%. Ambulate's to bathroom with standby assist. Bed alarm remains in place for safety. Pt denies any pain. VSS, no concerns at this time.
[2021-03-31 04:00] VITALS: BP 117/64; PULSE 71; TEMP 35.7; O2SAT 99
[2021-03-31 04:36] VITALS: BP 123/63; PULSE 90; RESP 16; TEMP 36.4; O2SAT 98
[2021-03-31 08:00] VITALS: BP 107/63; PULSE 102; RESP 18; TEMP 36.5; O2SAT 95
--- NOTE | 2021-03-31 10:15 | HMH.ACPN2 ---
Internal Medicine - PN: Subj *Date: 03/31/21 *Time: 10:15 Interval history: He rested better last night. He denies cough. No chest pain. He is eating well and has been ambulating with assistance. He is eager to go home. Exam Vital signs and Labs for Last 24 Hours: Temp Pulse Resp BP Pulse Ox 97.7 F 102 H 18 107/63 L 95 03/31/21 08:00 03/31/21 08:00 03/31/21 08:00 03/31/21 08:00 03/31/21 08:00 I & O for Last 24 hours: Intake & Output 03/28/21 03/29/21 03/30/21 03/31/21 11:59 11:59 11:59 11:59 Intake Total 720 / 720 840 / 840 1020 / 1020 Output Total 275 / 275 Balance 445 / 445 840 / 840 1020 / 1020 Weight 170 lb 120 lb 8 oz 123 lb 8 oz Microbiology Reports for the Last 24 Hours: Microbiology 03/28/21 11:30 Blood Blood Culture - Preliminary NO GROWTH AFTER 48 HOURS 03/28/21 11:30 Blood Blood Culture - Preliminary NO GROWTH AFTER 48 HOURS Narrative: He is alert. No respiratory distress. Lungs reveal diminished breath sounds in the left base with a few crackles. Heart is regular. Abdomen soft and nondistended with no tenderness. Extremities no edema. Assessment and Plan (1) Community acquired pneumonia Status: Acute Qualifiers: Laterality: left Lung location: lower lobe of lung Qualified Code(s): J18.9 - Pneumonia, unspecified organism Category: Medical Code(s): J18.9 - Pneumonia, unspecified organism (2) Presence of permanent cardiac pacemaker Status: Acute Category: Medical Code(s): Z95.0 - Presence of cardiac pacemaker (3) Adenocarcinoma Status: Acute Category: Medical Code(s): C80.1 - Malignant (primary) neoplasm, unspecified (4) Altered mental status Status: Acute Category: Medical Code(s): R41.82 - Altered mental status, unspecified (5) Leukocytosis Status: Acute Category: Medical Code(s): D72.829 - Elevated white blood cell count, unspecified (6) COPD (chronic obstructive pulmonary disease) Status: Chronic Qualifiers: COPD type: unspecified COPD Qualified Code(s): J44.9 - Chronic obstructive pulmonary disease, unspecified Category: Medical Code(s): J44.9 - Chronic obstructive pulmonary disease, unspecified (7) Carotid artery stenosis Status: Chronic Qualifiers: Laterality: bilateral Qualified Code(s): I65.23 - Occlusion and stenosis of bilateral carotid arteries Category: Medical Code(s): I65.29 - Occlusion and stenosis of unspecified carotid artery (8) Hyperlipidemia Status: Chronic Qualifiers: Hyperlipidemia type: mixed hyperlipidemia Qualified Code(s): E78.2 - Mixed hyperlipidemia Category: Medical Code(s): E78.5 - Hyperlipidemia, unspecified (9) Hypertension Status: Chronic Qualifiers: Hypertension type: essential hypertension Category: Medical Code(s): I10 - Essential (primary) hypertension (10) Moderate to severe pulmonary hypertension Status: Chronic Category: Medical Code(s): I27.20 - Pulmonary hypertension, unspecified - Assessment and plan all Dx Assessment and Plan for all problems:: Clinically improved. He still has some confusion at night related to sundowning. He is eager to go home. His is at the bedside and feels she can manage at home. Will be discharged home with 7 more days of Levaquin. He will follow-up in the office in 1 week.
--- NOTE | 2021-03-31 15:38 | HMH.DCSUM ---
General - General Admission date:: 03/28/21 <Mohit Perez - 06/01/21 13:30> 03/28/21 <AurelianoJoyce - 03/31/21 15:59> Discharge date: 03/31/21 <AurelianoSpringJoyce - 03/31/21 15:59> HPI HPI: Mr. Jeffries is a 80-year-old male patient with a history of hypertension, hyperlipidemia, prostatitis, kidney stones, coronary artery disease, bladder tumor, severe COPD., Sick sinus syndrome, moderate pulmonary hypertension, and gastric stomach cancer who presented to the emergency room after a fall. He stated he had been very weak and had difficulty with walking the previous couple of days. He stated his legs would just not hold him up. He also has a congested cough. Patient was a poor historian and family was not present. With evaluation in the emergency room he had a stat CT of the head as per stroke protocol. CT of the head showed no acute intracranial findings. Chest x-ray showed patchy ill-defined pneumonic with infiltrate in the left infrahilar region and left lower lobe. KUB revealed mildly abnormal nonspecific bowel gas pattern with mild degree of gastroenteritis as a possibility. Other evaluation in the ER revealed white blood cell count elevated at 18,000. Patient was started on Rocephin and Zithromax for pneumonia. He was admitted for further evaluation and treatment. <AurelianoSpringJoyce - 03/31/21 15:59> Hospital Course Hospital Course: On admission patient was started on Rocephin, Zithromax, duo nebs, and IV fluids were continued at 75 an hour. He appeared to be weak but his mental status seemed at baseline. He denied chest pain, shortness of breath and had a minimal cough. He was able to eat. He did have one restless night with increased confusion. He was able to sit up in the chair and initially was insistent on going home on 03/30/2021. White blood cell count had improved. He had no respiratory issues. On 03/31/2021 he had rested better. Again he denied cough and chest pain. At this point he was eating well and was ambulating without assistance. Again he was eager to go home. He was discharged home in stable and satisfactory condition. He was to continue with Levaquin for 7 more days. His was at bedside and felt she could manage him at home. He continued to have some confusion at night related to sundowning. He will follow-up in the office of [facility] in 1 week. See DATA for specific test results. <Joyce Bedoya - 03/31/21 15:59> Objective Vital signs: Temp Pulse Resp BP Pulse Ox 97.7 F 102 H 18 107/63 L 95 03/31/21 08:00 03/31/21 08:00 03/31/21 08:00 03/31/21 08:00 03/31/21 08:00 <AnaMohit clark Cristiano - 06/01/21 13:30> Temp Pulse Resp BP Pulse Ox 97.7 F 102 H 18 107/63 L 95 03/31/21 08:00 03/31/21 08:00 03/31/21 08:00 03/31/21 08:00 03/31/21 08:00 <Joyce Bedoya - 03/31/21 15:59> Narrative: Exam Vital signs and Labs for Last 24 Hours: Temp Pulse Resp BP Pulse Ox 97.7 F 102 H 18 107/63 L 95 03/31/21 08:00 03/31/21 08:00 03/31/21 08:00 03/31/21 08:00 03/31/21 08:00 I & O for Last 24 hours: Intake & Output 03/28/21 03/29/21 03/30/21 03/31/21 11:59 11:59 11:59 11:59 Intake Total 720 / 720 840 / 840 1020 / 1020 Output Total 275 / 275 Balance 445 / 445 840 / 840 1020 / 1020 Weight 170 lb 120 lb 8 oz 123 lb 8 oz Microbiology Reports for the Last 24 Hours: Microbiology 03/28/21 11:30 Blood Blood Culture - Preliminary NO GROWTH AFTER 48 HOURS 03/28/21 11:30 Blood Blood Culture - Preliminary NO GROWTH AFTER 48 HOURS Narrative: He is alert. No respiratory distress. Lungs reveal diminished breath sounds in the left base with a few crackles. Heart is regular. Abdomen soft and nondistended with no tenderness. Extremities no edema. <Joyce Bedoya - 03/31/21 15:59> Results Completed studies during hospitalization [T
== END 2021-03-31 10:00 | disposition home or self-care (01) | DRG 194 ==
LOC: ER 11:04 → 2ND 11:41
PROVIDERS: Admitting Provider Family Medicine; Emergency Provider Student in an Organized Health Care Education/Training Program; Visit Provider Family Medicine
DX: J18.9 Pneumonia, unspecified organism (principal); J44.0 Chronic obstructive pulmonary disease with (acute) lower respiratory infection; I42.9 Cardiomyopathy, unspecified; Z87.891 Personal history of nicotine dependence; I11.0 Hypertensive heart disease with heart failure; I50.9 Heart failure, unspecified; E78.5 Hyperlipidemia, unspecified; I27.20 Pulmonary hypertension, unspecified; I25.10 Atherosclerotic heart disease of native coronary artery without angina pectoris; Z85.028 Personal history of other malignant neoplasm of stomach; W19.XXXA Unspecified fall, initial encounter; Z95.0 Presence of cardiac pacemaker; Z20.822 Contact with and (suspected) exposure to COVID-19
CPT/HCPCS: 36415; 70450; 71045; 74018; 80048; 80053; 81001; 83605; 83735; 84100; 84443; 84484; 85007; 85025; 87040; 99284; J0456; U0003

== ENCOUNTER → 2022-01-28 07:22 | Outpatient (CLI) | payer MEDICARE, OTHER, SELFPAY | PROVIDERS: PCP Nurse Practitioner; Visit Provider Nurse Practitioner | DX: N30.01 Acute cystitis with hematuria (principal) | CPT/HCPCS: 87086 ==

== ENCOUNTER 2022-05-09 07:40 | Inpatient (IN) | payer MEDICARE, OTHER, SELFPAY ==
[2022-05-09] VITALS (18 sets, daily range): BP systolic 122–166; BP diastolic 61–89; PULSE 78–100; RESP 19–24; TEMP 36.7–37.1; O2SAT 1–98; BMI 16.2; BMI 19.3
--- NOTE | 2022-05-09 07:58 | XR_ITS ---
PROCEDURE INFORMATION: Exam: XR Pelvis Exam date and time: 05/09/2022 8:40 AM Age: 82 years old Clinical indication: Injury or trauma; Fall; Blunt trauma (contusions or hematomas); Bilateral; Pelvic region; Additional info: Fall, hip pain TECHNIQUE: Imaging protocol: Radiologic exam of the pelvis. Views: 1 or 2 view. COMPARISON: CT ABDOMEN PELVIS WO/W CON 11/10/2019 8:04 AM FINDINGS: Bones/joints: There appears to be deformity of the left femoral neck raising the concern for intratrochanteric fracture but exam somewhat limited secondary to positioning. Dedicated left hip films are recommended. Soft tissues: Unremarkable. Vasculature: Arterial calcifications are present. IMPRESSION: There appears to be deformity of the left femoral neck raising the concern for intratrochanteric fracture but exam somewhat limited secondary to positioning. Dedicated left hip films are recommended.
--- NOTE | 2022-05-09 07:58 | XR_ITS ---
PROCEDURE INFORMATION: Exam: XR Chest Exam date and time: 05/09/2022 8:40 AM Age: 82 years old Clinical indication: Cough and shortness of breath TECHNIQUE: Imaging protocol: Radiologic exam of the chest. Views: 1 view. COMPARISON: CR XR CHEST PORTABLE 03/30/2021 8:31 AM FINDINGS: Tubes, catheters and devices: There is a cardiac device present over the left chest with leads in the right atrium and right ventricle. Lungs: Hazy opacity in the lung bases that may represent dependent changes are chronic increased interstitial markings and are fairly similar to prior exam. Pleural spaces: Unremarkable. No pleural effusion. No pneumothorax. Heart/Mediastinum: Unremarkable. No cardiomegaly. Vasculature: There is mild tortuosity of the thoracic aorta. Bones/joints: Unremarkable. IMPRESSION: Hazy opacity in the lung bases that may represent dependent changes are chronic increased interstitial markings and are fairly similar to prior exam.
--- NOTE | 2022-05-09 08:00 | ECG_ITS ---
APPROVED REPORT Exam: Resting ECG HR:92 bpm ECG Measurements Heart Rate 92 AXES QRSd 133 QRS 86 QT 365 T 55 QTc 415 Conclusion ATRIAL FIBRILLATION RIGHT BUNDLE BRANCH BLOCK [120+ ms QRS DURATION, UPRIGHT V1, 40+ ms S IN I/aVL/V4/V5/V6] ABNORMAL ECG UNCONFIRMED REPORT Electronically signed by : Alfredo Huang MD 05/11/2022 21:29:31
--- NOTE | 2022-05-09 08:02 | CT_ITS ---
PROCEDURE INFORMATION: Exam: CT Head Without Contrast Exam date and time: 05/09/2022 8:20 AM Age: 82 years old Clinical indication: Altered mental status/memory loss; Confusion or disorientation; Additional info: AMS TECHNIQUE: Imaging protocol: Computed tomography of the head without contrast. Radiation optimization: All CT scans at this facility use at least one of these dose optimization techniques: automated exposure control; mA and/or kV adjustment per patient size (includes targeted exams where dose is matched to clinical indication); or iterative reconstruction. COMPARISON: CT HEAD/BRAIN WO CON 03/28/2021 9:40 AM FINDINGS: Brain: Prominent sulci. Patchy hypodensity of the cerebral white matter which are nonspecific but likely secondary to microangiopathic changes. Cerebral ventricles: The ventricles are prominent secondary to diffuse volume loss/atrophy. Paranasal sinuses: Visualized sinuses are unremarkable. No fluid levels. Mastoid air cells: Visualized mastoid air cells are well aerated. Bones/joints: Unremarkable. No acute fracture. Soft tissues: Left parietal soft tissue swelling. IMPRESSION: Left parietal soft tissue swelling and age related changes but no evidence of acute intracranial pathology.
--- NOTE | 2022-05-09 08:05 | PC.NURSE ---
RT at the bedside for blood gas
--- NOTE | 2022-05-09 08:09 | HMH.EDGENADL ---
Discharge Plan Disposition Patient Disposition: Admitted As Inpatient Condition: Serious Clinical Impressions Clinical Impression: Acute hypoxemic respiratory failure, COPD (chronic obstructive pulmonary disease), Closed fracture of left hip Discharge ED Provider: Leydi Altamirano Adult HPI General Chief complaint: Fall Stated complaint: Weakness Time Seen by Provider: 05/09/22 07:57 Mode of Arrival: EMS Source of Information: Patient Limitations: No Limitations Description of Symptoms (Recalled from ER Triage Doc. by RN): pt to ed via ems c/o fall, shortness of breath. pt reports a fall this morning. pt states unknown LOC. per ems pt's o2 was 77% on scene. states pt is not on oxygen at home. pt is alert and oriented to self and place. History of Present Illness HPI narrative: 82-year-old male presenting to the emergency department by EMS, chief complaint of weakness and fall. Incident happened earlier this morning. He went to get up out of bed and lost his balance, fell onto the floor. heard a commotion and called 911. Patient usually is able to ambulate with a walker, but has physical therapy come to the house. He has been getting more more weak over the last few days. Not complaining of any injuries from the fall. No weakness in 1 arm or leg. Was hypoxic with EMS into the high 80s. They placed him on a nonrebreather. He has a history of COPD and emphysema. Uses inhalers. No recent antibiotics or steroids. says he had surgery for colon cancer 2 years ago and seems like he never recovered. He also has a pacemaker. No recent nausea, vomiting, fevers. Patient denies shortness of breath, chest pain, wheezing. No headache, back pain, abdominal pain. Related Data Home Medications Medication Instructions Recorded Confirmed haloperidol 2 mg tablet 2 mg PO HS Sleep 03/28/21 05/09/22 metoclopramide HCl 10 mg tablet 10 mg PO Q8H Reflux/Acid reflux 03/28/21 05/09/22 tamsulosin 0.4 mg capsule 0.4 mg PO BID Prostate 03/28/21 05/09/22 esomeprazole magnesium 40 mg 40 mg PO DAILY Reflux/Acid reflux 01/27/22 05/09/22 capsule,delayed release aspirin 81 mg capsule,delayed 81 mg PO DAILY CAD 05/09/22 05/09/22 release cholecalciferol (vitamin D3) 125 125 mcg PO DAILY Supplement 10/15/22 10/15/22 mcg (5,000 unit) tablet finasteride 5 mg tablet 5 mg PO DAILY PROSTATE 05/09/22 05/09/22 Allergies Allergy/AdvReac Type Severity Reaction Status Date / Time No Known Drug Allergies Allergy Unknown Verified 02/16/22 10:36 [NKDA] PFSH PFSH Medical History Dyspnea History of stomach cancer Parkinson's disease (tremor, stiffness, slow motion, unstable posture) Social History Smoking Status: Never smoker second hand exposure: No alcohol intake: never substance use type: denies use current occupational status: retired Travel in the last 8 weeks: None household members: spouse housing: house current occupational exposures/hazards: No caffeine: Yes ROS Obtained: Yes All systems reviewed & no additional complaints except as documented Constitutional Constitutional: Reports fatigue, Denies fever(s), Denies headache(s), Reports poor appetite and Reports malaise Eyes Eyes: Denies blurry vision and Denies loss of vision ENT Ears, Nose, Mouth, and Throat: Denies dizziness, Denies headache(s) and Denies neck pain Cardiovascular Cardiovascular: Denies chest pain, Denies dyspnea and Denies palpitations Respiratory Respiratory: Denies cough and Denies dyspnea Gastrointestinal Gastrointestingal: Denies abdominal pain, nausea or vomiting Genitourinary Male Genitourinary: Denies flank pain and Denies hematuria Musculoskeletal Musculoskeletal: Reports muscle weakness, Reports myalgias and Denies neck pain Integumentary/Breasts Skin/Breast: Denies redness and Denies rash Neurologic Ne
--- NOTE | 2022-05-09 08:12 | PC.NURSE ---
vbg order changed to abg per MD
--- NOTE | 2022-05-09 08:15 | PC.NURSE ---
technical specialist to take pt for XR and CT SCAN
[2022-05-09 08:17] LABS: ABG Base Excess -2.3 mmol/L (-2.4-2.3); ABG HCO3 21.9 mmhg (22.0-26.0); ABG Oxygen Saturation 85 % (90-100); ABG PCO2 33.5 mmhg (35.0-45.0); ABG PH 7.43 mmol/L (7.35-7.45)
[2022-05-09 08:20] LABS: Allen's Test ACCEPTABLE; Oxygen 3 lpm %; Source Right Radial
[2022-05-09 08:22] LABS: ABG PO2 48.8 mmhg (80-100)
--- NOTE | 2022-05-09 08:23 | PC.NURSE ---
pt to radiology
[2022-05-09 08:24] LABS: Coronavirus 19, PCR Not Detected (NotDetected); Influenza A, PCR Not Detected (NotDetected); Influenza B, PCR Not Detected (NotDetected); Microscopic, Urine URINE MICROSCOPIC (MICROSCOPIC)
[2022-05-09 08:28] LABS: Appearance,Urine TURBID (Clear); Blood, Urine 3+ (Negative); Color,Urine AMBER (Yellow); Glucose,Urine (UA) Negative (Negative); Ketones,Urine Negative (Negative); Leukocyte Esterase,Urine Negative (Negative); Nitrate,Urine Negative (Negative); PH,Urine 5.5 (5.0-8.5); Protein,Urine 2+ (Negative); Specific Gravity, Urine >= 1.030 (1.005-1.030)
[2022-05-09 08:31] LABS: Basophils # 0.1 K/mm3 (0-0.2); Basophils % 0.5 % (0.1-2.0); Eosinophils # 0.1 K/mm3 (0.0-0.4); Eosinophils % 0.4 % (0.1-12.0); Hematocrit 44.8 % (42.0-52.0); Hemoglobin 13.9 g/dL (14.1-18.0); Lymphocytes # 0.9 K/mm3 (0.7-4.5); Lymphocytes % 4.9 % (10-50); Mean Corpuscular HGB Conc 30.9 g/dL (31.8-35.4); Mean Corpuscular Hemoglobin 28.3 pg (27.0-31.2); Mean Corpuscular Volume 91.5 fl (80-94); Mean Platelet Volume 9.1 fl (7.4-10.4); Monocytes # 1.5 K/mm3 (0.1-1.0); Monocytes % 7.9 % (1.7-9.3); Neutrophils # 16.5 K/mm3 (1.8-7.8); Neutrophils % 86.3 % (37.0-80.0); Platelet Count 210 K/mm3 (142-424); Red Cell Distribution Width 15.4 % (11.5-17.5); White Blood Count 19.2 K/mm3 (4.8-10.8)
[2022-05-09 08:31] LABS: Bilirubin,Urine 2+ (Negative)
--- NOTE | 2022-05-09 08:31 | PC.NURSE ---
abg results called from RT. notified.
[2022-05-09 08:32] LABS: MANUAL DIFFERENTIAL MANUAL DIFFERENTIAL (MANUAL DIFF)
[2022-05-09 08:39] LABS: Lymphocytes % 9 % (10-50); Monocytes % 7 % (2-9); Neutrophils % 84 % (42-76); Total Cells Counted 100
[2022-05-09 08:40] LABS: Chloride 105 mmol/L (98-107); Platelet Estimate Normal; Potassium 3.5 mmoL/L (3.5-5.1); RBC Morphology Normal; Sodium 142 mmol/L (136-145)
--- NOTE | 2022-05-09 08:42 | PC.NURSE ---
pt back from radiology
[2022-05-09 08:43] LABS: Alanine Aminotransferase 22 U/L (12-78); Albumin Level 3.8 g/dl (3.5-5.0); Albumin/Globulin Ratio 1.1 (1.1-1.8); Alkaline Phosphatase 115 U/L (38-126); Anion Gap 14.5 mEq/L (5-15); Aspartate Amino Transferase 41 U/L (17-59); Bilirubin,Total 1.2 mg/dl (0.2-1.3); Blood Urea Nitrogen 10 mg/dl (9-20); Carbon Dioxide 26 mmol/L (22.0-30.0); Creatinine Clearance Estimated 45 mL/min (50-200); Estimated Glomerular Filt Rate 81 ml/min (>60); GFR (African American) 98 ML/MIN (>60); Globulin 3.5 g/dL (1.3-3.2); Glucose 129 mg/dl (74-100); Total Protein,Serum 7.3 g/dl (6.3-8.2)
[2022-05-09 08:43] LABS: Bacteria,Urine 2+ /lpf; RBC,Urine TNTC #/hpf (0-3); Squamous Epithelial Cell,Urine Occasional #/hpf (0-5); WBC,Urine Occasional #/hpf (0-3)
[2022-05-09 08:44] LABS: Calcium 8.9 mg/dl (8.4-10.2)
[2022-05-09 08:55] LABS: Troponin I 0.05 ng/ml (0.00-0.034)
[2022-05-09 09:01] LABS: Lactic Acid 2.9 mmol/L (0.7-2.1)
--- NOTE | 2022-05-09 09:10 | PC.NURSE ---
spoke with MD about pharmacy order. abx already infusing per MD order. Pharmacy notified and MD aware.
--- NOTE | 2022-05-09 09:23 | XR_ITS ---
PROCEDURE INFORMATION: Exam: XR Left Hip Exam date and time: 05/09/2022 9:41 AM Age: 82 years old Clinical indication: Injury or trauma; Fall; Blunt trauma (contusions or hematomas); Left; Hip; Additional info: Fall, pain-- TECHNIQUE: Imaging protocol: Radiologic exam of the Left hip. Views: 2 or 3 views hip with pelvis when performed. COMPARISON: CR XR PELVIS 1-2V 05/09/2022 8:40 AM FINDINGS: Bones/joints: Left intertrochanteric hip fracture with approximately 1.5-2 cm of impaction. Soft tissues: Unremarkable. IMPRESSION: Left intertrochanteric hip fracture with approximately 1.5-2 cm of impaction.
--- NOTE | 2022-05-09 09:50 | PC.NURSE ---
page out to dr palencia
--- NOTE | 2022-05-09 09:53 | PC.NURSE ---
speaking to dr talha miller
--- NOTE | 2022-05-09 10:00 | PC.NURSE ---
speaking to dr collins
--- NOTE | 2022-05-09 10:01 | PC.NURSE ---
called [facility] for admission
--- NOTE | 2022-05-09 10:38 | PC.NURSE ---
called report to claire nguyen
--- NOTE | 2022-05-09 10:59 | PC.NURSE ---
patient arrived to floor by stretcher from ED
--- NOTE | 2022-05-09 11:02 | PC.NURSE ---
pt being transported to the floor at this time
--- NOTE | 2022-05-09 11:27 | EXP.HP ---
History of Present Illness *Admission Date: 05/09/22 *Reason for visit:: Hip fracture *History of present illness: ER NARRATIVE ON ADMISSION: 82-year-old male presenting to the emergency department by EMS, chief complaint of weakness and fall.? Incident happened earlier this morning.? He went to get up out of bed and lost his balance, fell onto the floor.? heard a commotion and called 911.? Patient usually is able to ambulate with a walker, but has physical therapy come to the house.? He has been getting more more weak over the last few days.? Not complaining of any injuries from the fall.? No weakness in 1 arm or leg.? Was hypoxic with EMS into the high 80s.? They placed him on a nonrebreather.? He has a history of COPD and emphysema.? Uses inhalers.? No recent antibiotics or steroids.? says he had surgery for colon cancer 2 years ago and seems like he never recovered.? He also has a pacemaker.? No recent nausea, vomiting, fevers.? Patient denies shortness of breath, chest pain, wheezing.? No headache, back pain, abdominal pain. <Apart from the above,When I examined the patient was concerned about Parkinsonism. The states that this is not been a diagnosis but that she is wondered if he has Parkinson's. She reports bowel and bladder function to be normal. We discussed the 2020 surgery for colon cancer. The surgery was performed at [facility]. [facility] Medical History (Updated 05/09/22 @ 11:39 by Litzy Henderson MD) Dyspnea History of stomach cancer Parkinson's disease (tremor, stiffness, slow motion, unstable posture) Social History Smoking Status: Never smoker second hand exposure: No alcohol intake: never substance use type: denies use current occupational status: retired Travel in the last 8 weeks: None household members: spouse housing: house current occupational exposures/hazards: No caffeine: Yes Review of Systems Constitutional Constitutional: Denies headache(s) and Reports weakness Eyes Eyes: Denies loss of vision ENT Ears, Nose, Mouth, and Throat: Denies dizziness and Denies headache(s) *Cardiovascular Cardiovascular: Denies chest pain, Reports dyspnea on exertion and Reports other (Pacemaker) *Respiratory Respiratory: Reports chest congestion and Reports dyspnea on exertion *Gastrointestinal Gastrointestinal: Denies change in bowel habits, Denies change in stool character and Denies constipation *Genitourinary Genitourinary: Reports system reviewed and no additional complaints, except as documented *Musculoskeletal Musculoskeletal: Reports as per HPI *Neurologic Neurologic: Denies dizziness, Denies headache(s), Denies loss of vision, Reports tremor(s) and Reports weakness Psychiatric Psychiatric: Reports system reviewed and no additional complaints, except as documented Endocrine Endocrine: Reports system reviewed and no additional complaints, except as documented Hematologic/Lymphatic Hematologic/Lymphatic: Reports system reviewed and no additional complaints, except as documented Allergic/Immunologic Allergic/Immunologic: Reports system reviewed and no additional complaints, except as documented Meds Home Medications and Allergies Home Medications Medication Instructions Recorded Confirmed Type haloperidol 2 mg tablet 2 mg PO HS Sleep 03/28/21 05/09/22 History metoclopramide HCl 10 mg tablet 10 mg PO Q8 acid reflux 03/28/21 05/09/22 History tamsulosin 0.4 mg capsule 0.4 mg PO BID Prostate 03/28/21 05/09/22 History esomeprazole magnesium 40 mg 40 mg PO DAILY per md 01/27/22 05/09/22 History capsule,delayed release finasteride 5 mg tablet 5 mg PO DAILY per MD 05/09/22 05/09/22 History New Prescriptions to Start Prescriptions: Allergies Allergy/AdvReac Type Severity Reaction Status Date / Time No Known Drug Allergies Allergy Unknown Verified 02/16/22 10:36 [NKDA] Exam Data for Last 24 hours Vital signs and Labs for Last 24 Hours:
[2022-05-09 11:54] LABS: Reflex Lactic Add Lactic Reflex
[2022-05-09 11:55] LABS: Lactic Acid Follow Up (RFLX 1) 3.3 mmol/L (0.7-2.1)
--- NOTE | 2022-05-09 13:13 | HMH.PHAINT1 ---
Pharmacy Intervention Comments: MEDICATION RECONCILIATION COMPLETE USING EXTERNAL PHARMACY FILL HISTORY AND MOST RECENT MD OFFICE VISIT (01/2022)
--- NOTE | 2022-05-09 13:44 | EXP.ORTH.CON ---
History of Present Illness *Admission Date: 05/09/22 *History of present illness: ER NARRATIVE ON ADMISSION: 82-year-old male presenting to the emergency department by EMS, chief complaint of weakness and fall.? Incident happened earlier this morning.? He went to get up out of bed and lost his balance, fell onto the floor.? heard a commotion and called 911.? Patient usually is able to ambulate with a walker, but has physical therapy come to the house.? He has been getting more more weak over the last few days.? Not complaining of any injuries from the fall.? No weakness in 1 arm or leg.? Was hypoxic with EMS into the high 80s.? They placed him on a nonrebreather.? He has a history of COPD and emphysema.? Uses inhalers.? No recent antibiotics or steroids.? says he had surgery for colon cancer 2 years ago and seems like he never recovered.? He also has a pacemaker.? No recent nausea, vomiting, fevers.? Patient denies shortness of breath, chest pain, wheezing.? No headache, back pain, abdominal pain. stated that he had some cognitive difficulties following surgery in 2019 and these have been progressive over time. She does not feel like he is making good progress with physical therapy at home. [facility] Medical History Dyspnea History of stomach cancer Parkinson's disease (tremor, stiffness, slow motion, unstable posture) Social History Smoking Status: Never smoker second hand exposure: No alcohol intake: never substance use type: denies use current occupational status: retired Travel in the last 8 weeks: None household members: spouse housing: house current occupational exposures/hazards: No caffeine: Yes Review of Systems Constitutional Constitutional: Denies headache(s) and Reports weakness Eyes Eyes: Denies loss of vision ENT Ears, Nose, Mouth, and Throat: Denies dizziness and Denies headache(s) *Neurologic Neurologic: Denies dizziness, Denies headache(s), Denies loss of vision, Reports tremor(s) and Reports weakness Meds Home Medications and Allergies Home Medications Medication Instructions Recorded Confirmed Type haloperidol 2 mg tablet 2 mg PO HS Sleep 03/28/21 05/09/22 History metoclopramide HCl 10 mg tablet 10 mg PO Q8H Reflux/Acid reflux 03/28/21 05/09/22 History tamsulosin 0.4 mg capsule 0.4 mg PO BID Prostate 03/28/21 05/09/22 History esomeprazole magnesium 40 mg 40 mg PO DAILY Reflux/Acid reflux 01/27/22 05/09/22 History capsule,delayed release aspirin 81 mg capsule,delayed 81 mg PO DAILY CAD 05/09/22 05/09/22 History release cholecalciferol (vitamin D3) 125 125 mcg PO DAILY Supplement 05/09/22 05/09/22 History mcg (5,000 unit) tablet finasteride 5 mg tablet 5 mg PO DAILY PROSTATE 05/09/22 05/09/22 History New Prescriptions to Start Prescriptions: Allergies Allergy/AdvReac Type Severity Reaction Status Date / Time No Known Drug Allergies Allergy Unknown Verified 02/16/22 10:36 [NKDA] Ortho Exam (Inpt) Vital signs and Labs for Last 24 Hours: Temp Pulse Resp BP Pulse Ox 98.8 F 84 20 150/74 H 94 L 05/09/22 11:27 05/09/22 11:27 05/09/22 11:27 05/09/22 11:27 05/09/22 11:12 Laboratory Results - last 24 hr 05/09/22 07:45: WBC 19.2 H, RBC 4.90, Hgb 13.9 L, Hct 44.8, MCV 91.5, MCH 28.3, MCHC 30.9 L, RDW 15.4, Plt Count 210, MPV 9.1, Neut % (Auto) 86.3 H, Lymph % (Auto) 4.9 L, [place] % (Auto) 7.9, Eos % (Auto) 0.4, Baso % (Auto) 0.5, Neut # (Auto) 16.5 H, Lymph # (Auto) 0.9, [place] # (Auto) 1.5 H, Eos # (Auto) 0.1, Baso # (Auto) 0.1, Total Counted 100, Neutrophils % (Manual) 84 H, Lymphocytes % (Manual) 9 L, Monocytes % (Manual) 7, Platelet Estimate Normal, RBC Morphology Normal 05/09/22 07:45: Sodium 142, Potassium 3.5, Chloride 105, Carbon Dioxide 26, Anion Gap 14.5, BUN 10, Creatinine 0.90, Estimated Creat Clear 45, Estimated GFR 81, Est GFR
[2022-05-09 13:55] LABS: Reflex Lactic (2 hrs) Add Lactic Reflex
[2022-05-09 14:54] LABS: Lactic Acid Follow up (RFLX 2) 2.3 mmol/L (0.7-2.1)
--- NOTE | 2022-05-09 15:01 | PC.NURSE ---
called and spoke with Nicolle. she says she will be in as soon as she can
--- NOTE | 2022-05-09 17:18 | PC.NURSE ---
Paged Dr. Henderson at [phone]. Waiting for callback
--- NOTE | 2022-05-09 18:24 | PC.NURSE ---
Patient had been on 1LNC but then began to drop oxygen saturations into 60's. Suction utilized and copious amounts of secretions suction out of airway. Oxygen saturations still 70's despite suctioning and oxygen increase to 5LNC. Patient advised to cough and produced some cough effort but not very forcefully. Respiratory called and asked to deep suction patient to help clear airway. Patient deep suctioned by respiratory with great success as enormous amount of secretions suctioned. Patient tolerated well. Venti mask 50% placed and patient stated he felt better. Oxygen saturations between 90-93%. Dr. Henderson paged to notify of change in patient status but callback was not received. Other VS stable and patient turned between right side and supine during shift. On-call speech therapist advised of speech consult due to patient's inability to swallow water without choking. No other meds given as patient could be aspirating.
[2022-05-10] VITALS (7 sets, daily range): BP systolic 159–190; BP diastolic 77–90; PULSE 87–104; RESP 20–28; TEMP 36.8–37; O2SAT 89–95; BMI 19.1
--- NOTE | 2022-05-10 04:59 | PC.NURSE ---
Addendum entered by Niesha Santa RN 05/10/22 05:11: Call light in reach, family at bedside. bed alarm on. Original Note: Pt on 50% venti mask, SPO2 has remained >90% when mask is on. Pt does tend to take off mask frequently, causing sats to drop. Once mask is back on, pt recovers quickly. Lung sounds - rhonchi. Pt denies pain at this time. Pt triggered sepsis at beginning of my shift, that was paged for Dr. Henderson aware. + blood cultures reported to Dr. Henderson. Pt started on vanco and rocephin resumed daily. Pt is incontinent, [id number]. Iv infusing per order.
[2022-05-10 07:04] LABS: Chloride 108 mmol/L (98-107); Potassium 3.8 mmoL/L (3.5-5.1); Sodium 144 mmol/L (136-145)
[2022-05-10 07:06] LABS: Basophils # 0.1 K/mm3 (0-0.2); Basophils % 0.3 % (0.1-2.0); Eosinophils # 0.1 K/mm3 (0.0-0.4); Eosinophils % 0.3 % (0.1-12.0); Hematocrit 44.8 % (42.0-52.0); Mean Corpuscular HGB Conc 31.2 g/dL (31.8-35.4); Mean Corpuscular Hemoglobin 28.2 pg (27.0-31.2); Mean Corpuscular Volume 90.3 fl (80-94); Mean Platelet Volume 9.4 fl (7.4-10.4); Monocytes # 1.3 K/mm3 (0.1-1.0); Monocytes % 6.8 % (1.7-9.3); Neutrophils # 17.1 K/mm3 (1.8-7.8); Neutrophils % 87.6 % (37.0-80.0); Platelet Count 191 K/mm3 (142-424); Red Blood Count 4.96 M/mm3 (4.60-6.20); Red Cell Distribution Width 15.6 % (11.5-17.5); White Blood Count 19.5 K/mm3 (4.8-10.8)
[2022-05-10 07:07] LABS: Anion Gap 15.8 mEq/L (5-15); Blood Urea Nitrogen 14 mg/dl (9-20); Carbon Dioxide 24 mmol/L (22.0-30.0); Creatinine Clearance Estimated 48 mL/min (50-200); Estimated Glomerular Filt Rate 81 ml/min (>60); GFR (African American) 98 ML/MIN (>60)
[2022-05-10 07:08] LABS: Calcium 9.3 mg/dl (8.4-10.2); Glucose 123 mg/dl (74-100); MANUAL DIFFERENTIAL MANUAL DIFFERENTIAL (MANUAL DIFF)
[2022-05-10 07:21] LABS: Lymphocytes % 5 % (10-50); Neutrophils % 85 % (42-76); Platelet Estimate Normal; RBC Morphology Normal; Total Cells Counted 100
--- NOTE | 2022-05-10 08:14 | PC.NURSE ---
Called pharmacy to let them know he cannot have PO medication.
--- NOTE | 2022-05-10 08:44 | EXP.PHA.CONS ---
Pharmacy Consult Date: 05/10/22 Time: 08:45 Referring provider: YEFRI Reason for Consult:: MANAGEMENT OF VANCOMYCIN THERAPY Allergies Allergy/AdvReac Type Severity Reaction Status Date / Time No Known Drug Allergies Allergy Unknown Verified 02/16/22 10:36 [NKDA] Home Medications Medication Instructions Recorded Confirmed Type haloperidol 2 mg tablet 2 mg PO HS Sleep 03/28/21 05/09/22 History metoclopramide HCl 10 mg tablet 10 mg PO Q8H Reflux/Acid reflux 03/28/21 05/09/22 History tamsulosin 0.4 mg capsule 0.4 mg PO BID Prostate 03/28/21 05/09/22 History esomeprazole magnesium 40 mg 40 mg PO DAILY Reflux/Acid reflux 01/27/22 05/09/22 History capsule,delayed release aspirin 81 mg capsule,delayed 81 mg PO DAILY CAD 05/09/22 05/09/22 History release cholecalciferol (vitamin D3) 125 125 mcg PO DAILY Supplement 05/09/22 05/09/22 History mcg (5,000 unit) tablet finasteride 5 mg tablet 5 mg PO DAILY PROSTATE 05/09/22 05/09/22 History New Prescriptions to Start Prescriptions: Height: 1.73 m Weight: 57.361 kg Laboratory Results:: Laboratory Results - last 24 hr 05/09/22 07:45: Sodium 142, Potassium 3.5, Carbon Dioxide 26, Anion Gap 14.5, BUN 10, Creatinine 0.90, Estimated Creat Clear 45, Estimated GFR 81, Est GFR ( Amer) 98, Glucose 129 H, Calcium 8.9, Total Bilirubin 1.2, AST 41, ALT 22, Alkaline Phosphatase 115, Troponin I 0.05 H, Total Protein 7.3, Albumin 3.8, Globulin 3.5 H, Albumin/Globulin Ratio 1.1 05/09/22 07:45: Lactate 2.9 H 05/09/22 08:21: SARS-CoV-2 (PCR) Not detected, Influenza A Untype (PCR) Not detected, Influenza Type B (PCR) Not detected 05/09/22 08:21: Urine Color [place], Urine Appearance Turbid, Urine pH 5.5, Ur Specific [place] >= 1.030, Urine Protein 2+, Urine Glucose (UA) Negative, Urine Ketones Negative, Urine Blood 3+, Urine Nitrate Negative, Urine Bilirubin 2+ A, Urine Urobilinogen 1.0, Ur Leukocyte Esterase Negative, Urine RBC Tntc, Urine WBC Occasional, Ur Squamous Epith Cells Occasional, Urine Bacteria 2+ 05/09/22 11:31: Lactate 3.3 H 05/09/22 14:30: Lactate 2.3 H 05/10/22 06:33: WBC 19.5 H, RBC 4.96, Hgb 14.0 L, Hct 44.8, MCV 90.3, MCH 28.2, MCHC 31.2 L, RDW 15.6, Plt Count 191, MPV 9.4, Neut % (Auto) 87.6 H, Lymph % (Auto) 5.0 L, [place] % (Auto) 6.8, Eos % (Auto) 0.3, Baso % (Auto) 0.3, Neut # (Auto) 17.1 H, Lymph # (Auto) 1.0, [place] # (Auto) 1.3 H, Eos # (Auto) 0.1, Baso # (Auto) 0.1, Total Counted 100, Neutrophils % (Manual) 85 H, Band Neutrophils % 10.0 H, Lymphocytes % (Manual) 5 L, Platelet Estimate Normal, RBC Morphology Normal 05/10/22 06:33: Sodium 144, Potassium 3.8, Chloride 108 H, Carbon Dioxide 24, Anion Gap 15.8 H, BUN 14 D, Creatinine 0.90, Estimated Creat Clear 48, Estimated GFR 81, Est GFR ( Amer) 98, Glucose 123 H, Calcium 9.3 Medical History: Medical History (Updated 05/09/22 @ 13:49 by Sal Aiken DO) Dyspnea History of stomach cancer Parkinson's disease (tremor, stiffness, slow motion, unstable posture) Assessment and Plan Assessment and plan all Dx Assessment and Plan for all problems:: PT RECEIVED ROCEPHIN 1GM IN ER ON 05/09/22 @ 0900, WILL CONTINUE EVERY 24 HOURS PER MD ORDERS. START VANCOMYCIN 1GM (~18MG/KG) EVERY 24 HOURS. FIRST DOSE ON 05/10/22 @0020. WILL FOLLOW DAILY AND ADJUST NECCESSARY
--- NOTE | 2022-05-10 10:23 | HMH.SLDYSPHA ---
Speech & Language Evaluation Speech/Language Dysphagia Evaluation Start: 05/10/22 09:47 Freq: ONCE Status: Active Protocol: Document 05/10/22 09:47 MAXIMILIANO (Rec: 05/10/22 10:23 MAXIMILIANO [id number]) Dysphagia Assess/Goals/Plan Assessment Date of Evaluation: 05/10/22 Evaluation Type Initial Certification Assessment/Problems Pt assessed with clinical bedside swallow evaluation per MD order. Does Patient Qualify for Service Yes Qualify/Failure Comment Based on the results of the clinical swallow evaluation, pt would benefit from skilled ST services at this time. Recommendations PHYSICIAN CERTIFICATION: The specified therapy services are required, authorized, and reviewed every 30 days. Pt will be seen # times/week 3 for # weeks 4 Diet Recommendations NPO until reassess & MBSS SL Swallow Guidelines High aspiration risk,Oral Care Education Plan Anticipate reaching STG in # weeks 2 Anticipate reaching LTG in # weeks 4 Pt/Guardian verbally ack understanding Yes of dx/prognosis/goals G -code Required No STG-Other Comment/Non-Specific Pt will complete re-evaluation of CSE and complete MBSS. Education Instructions provided Assessment results and need for f/u assessment discussed with and nursing all of which expressed understanding. Pt/Caregiver able to recall information Able to recall/restate Reinforcement needed No Speech & Language HPI History Present Illness Description of Patient Problem Pt arrived to the ER via ems 2 ' weakness and fall.? Incident happened earlier yesterday morning.?Patient usually is able to ambulate with a walker , but has physical therapy come to the house.? reported that has been getting more weak over the last few days.? Not complaining of any injuries from the fall.? No weakness in 1 arm or leg.? Was hypoxic with EMS into the high 80s.? They placed him on a nonrebreather.? He has a history of parkinsons, COPD and emphysema.? Uses inhalers. ? No recent antibiotics or
--- NOTE | 2022-05-10 12:09 | XR_ITS ---
PROCEDURE INFORMATION: Exam: XR Chest Exam date and time: 05/10/2022 2:11 PM Age: 82 years old Clinical indication: Shortness of breath; Additional info: SOB TECHNIQUE: Imaging protocol: Radiologic exam of the chest. Views: 1 view. COMPARISON: CR XR CHEST PORTABLE 05/09/2022 8:40 AM FINDINGS: Lungs: Opacity in the right base may represent atelectasis or pneumonia.. Pleural spaces: There may be mild right pleural effusion. Heart/Mediastinum: Unremarkable. No cardiomegaly. Bones/joints: Unremarkable. IMPRESSION: 1. Opacity in the right base may represent atelectasis or pneumonia.. 2. There may be mild right pleural effusion.
--- NOTE | 2022-05-10 14:35 | CT_ITS ---
PROCEDURE INFORMATION: Exam: CTA Chest With Contrast Exam date and time: 05/10/2022 3:19 PM Age: 82 years old Clinical indication: Shortness of breath; Additional info: Hypoxia, hip fracture also TECHNIQUE: Imaging protocol: Computed tomographic angiography of the chest with contrast. 3D rendering (Not supervised by radiologist): MIP and/or 3D reconstructed images were created by the technologist. Radiation optimization: All CT scans at this facility use at least one of these dose optimization techniques: automated exposure control; mA and/or kV adjustment per patient size (includes targeted exams where dose is matched to clinical indication); or iterative reconstruction. Contrast material: ISOVUE; Contrast volume: 75 ml; Contrast route: INTRAVENOUS (IV); COMPARISON: CHESTW CT chest w con 08/02/2018 1:54 PM FINDINGS: Tubes, catheters and devices: Transvenous pacemaker leads in the heart Pulmonary arteries: No evidence of pulmonary embolus to the segmental level. Aorta: No aneurysm of the aorta. No dissection of the aorta. Lungs: Consolidation in the lower lobes and right middle lobe and opacities in the lingula may represent atelectasis or pneumonia.. Moderate panlobular emphysematous changes Pleural spaces: Moderate right pleural effusion Heart: Coronary artery calcifications may indicate coronary artery disease. There is calcification of the aortic valve annulus. There is calcification of the mitral valve annulus. Lymph nodes: 14 x 12 mm lymph node in the preaortic region Gallbladder and bile ducts: Cholecystectomy Bones/joints: Severe compression fracture of unknown age of L1 Soft tissues: Unremarkable. IMPRESSION: 1. No evidence of pulmonary embolus to the segmental level. 2. No aneurysm of the aorta. 3. No dissection of the aorta. 4. Consolidation in the lower lobes and right middle lobe and opacities in the lingula may represent atelectasis or pneumonia.. 5 moderate right pleural effusion
--- NOTE | 2022-05-10 14:38 | EXP.ACUTE.PN ---
Subjective *Date: 05/10/22 *Time: 14:38 Interval history: He remains quite frail. His respiratory status is actually declined. His oxygen saturations have been harder to maintain over 90. He is using a nonrebreather at this point. His microbiology report from blood showed evidence of gram-positive cocci suggestive of staph. Vancomycin has been started. His chest x-ray shows more prominence of infiltrates in the right lower lobe. Medical Exam Vital signs and Labs for Last 24 Hours: Temp Pulse Resp BP Pulse Ox FiO2 98.6 F 89 24 190/86 H 91 L 50 05/10/22 08:00 05/10/22 08:00 05/10/22 08:00 05/10/22 08:00 05/10/22 13:19 05/09/22 20:00 Laboratory Results - last 24 hr 05/09/22 14:30: Lactate 2.3 H 05/10/22 06:33: WBC 19.5 H, RBC 4.96, Hgb 14.0 L, Hct 44.8, MCV 90.3, MCH 28.2, MCHC 31.2 L, RDW 15.6, Plt Count 191, MPV 9.4, Neut % (Auto) 87.6 H, Lymph % (Auto) 5.0 L, [place] % (Auto) 6.8, Eos % (Auto) 0.3, Baso % (Auto) 0.3, Neut # (Auto) 17.1 H, Lymph # (Auto) 1.0, [place] # (Auto) 1.3 H, Eos # (Auto) 0.1, Baso # (Auto) 0.1, Total Counted 100, Neutrophils % (Manual) 85 H, Band Neutrophils % 10.0 H, Lymphocytes % (Manual) 5 L, Platelet Estimate Normal, RBC Morphology Normal 05/10/22 06:33: Sodium 144, Potassium 3.8, Chloride 108 H, Carbon Dioxide 24, Anion Gap 15.8 H, BUN 14 D, Creatinine 0.90, Estimated Creat Clear 48, Estimated GFR 81, Est GFR ( Amer) 98, Glucose 123 H, Calcium 9.3 I & O for Labs for Last 24 Hours: Intake & Output 05/08/22 05/09/22 05/10/22 05/11/22 11:59 11:59 11:59 11:59 Intake Total 683 / 683 Balance 3 / 683 Weight 127 lb 9 oz 126 lb 7.35 oz Microbiology Reports for the Last 24 Hours: Microbiology 05/09/22 08:21 Urine,Clean Catch Urine Culture - Preliminary NO GROWTH AFTER 24 HOURS 05/09/22 07:45 Blood - Other Blood Culture - Preliminary Head: Present normocephalic Neck: Present normal inspection (No JVD) Respiratory: Present CTA bilaterally (Actually seems to be moving air quite well, but requiring nonrebreather to maintain sats.); Absent respiratory distress Cardiac: Present Reg Rate and Rhythm (Rhythm is paced) Comment:: His blood pressure has been elevated. I ordered lisinopril but he is not receiving medications by mouth. GI: Present soft; Absent tenderness Extremities: Absent edema Neuro: Present Weakness Comment:: No change. He is not receiving medications by mouth. Assessment and Plan *Assessment and plan (1) Closed fracture of left hip: Status: Acute Category: Medical Code(s): S72.002A - Fracture of unspecified part of neck of left femur, initial encounter for closed fracture (2) Community acquired pneumonia: Status: Acute Qualifiers: Laterality: left Lung location: lower lobe of lung Qualified Code(s): J18.9 - Pneumonia, unspecified organism Category: Medical Code(s): J18.9 - Pneumonia, unspecified organism (3) Acute hypoxemic respiratory failure: Status: Acute Category: Medical Code(s): J96.01 - Acute respiratory failure with hypoxia (4) Parkinson's disease (tremor, stiffness, slow motion, unstable posture): Status: Acute Category: Medical Code(s): G20 - Parkinson's disease (5) Hypertension: Status: Chronic Qualifiers: Hypertension type: essential hypertension Category: Medical Code(s): I10 - Essential (primary) hypertension (6) History of stomach cancer: Status: Acute Category: Medical Code(s): Z85.028 - Personal history of other malignant neoplasm of stomach (7) Weakness: Status: Acute Category: Medical Code(s): R53.1 - Weakness Plan CT of chest with PE protocol. Nitroglycerin paste to decrease blood pressure. He does not seem to be clinically stable at this point for surgery. The staphylococcal culture also complicates that.
[2022-05-10 16:06] LABS: ABG HCO3 21.8 mmhg (22.0-26.0); ABG Oxygen Saturation 77 % (90-100); ABG PCO2 35.6 mmhg (35.0-45.0); ABG TCO2 22.8 mmhg (23-27)
[2022-05-10 16:08] LABS: ABG PO2 41.5 mmhg (80-100); Allen's Test Acceptable; Oxygen 100% %; Source Right Radial
--- NOTE | 2022-05-10 16:20 | PC.NURSE ---
NT SKatherineN PT AT THIS TIME, SPUTUM SAMPLE OBTAINED AND TAKEN TO LAB
[2022-05-10 16:29] LABS: ABG Base Excess -2.2 mmol/L (-2.4-2.3); ABG HCO3 22.6 mmhg (22.0-26.0); ABG Oxygen Saturation 90 % (90-100); ABG PCO2 36.9 mmhg (35.0-45.0); ABG PO2 59.3 mmhg (80-100); ABG TCO2 23.7 mmhg (23-27); Allen's Test Y; Oxygen 100 %; Source Right Radial
--- NOTE | 2022-05-10 20:37 | INFXCTL.NOTE ---
Pt is confused, and has hx of dementia. is at bedside and stated this is his baseline. She states that sometimes he will talk a little, but mostly wont follow commands or respond. PT started shift on venti mask and then started to desat to low 80s. Rt changed to non rebreather and was high 80's, and low 90s. Pt was seen by speech, but was unable to follow commands during eval. He has been NPO all shift. He was turned q2 right, and supine only due to hip fracture. He has not responded to questions or followed commands. Pts BP was elevated. Spoke with Dr Henderson he was made aware of BP and decline in o2 sat. He stated that he was fine with him being high 80s, and low 90's on a Nonrebreather. He gave nitro paste for high BP. Pt has been a little restless at times during shift. Pt has had fluids running all shift. Also talked to Dr. Henderson about pt not having VTE ordered. has been at bedside entire shift. Have done oral care.
[2022-05-11] VITALS: BP 156/89; PULSE 100; PULSE 106; RESP 22; TEMP 36.8; O2SAT 90
[2022-05-11 04:00] VITALS: BP 185/96; PULSE 100; PULSE 111; RESP 19; TEMP 36.6; O2SAT 94
[2022-05-11 04:45] VITALS: O2SAT 89
--- NOTE | 2022-05-11 04:45 | PC.NURSE ---
Called to bedside by RN to N/T suction PT. PT SPO2 86% on NRB at this time PT has audible course secretions. N/T suctioned right nare with ease for copious amounts of thick, white secretions, PT has weak cough. PT SPO2 89% post suctioning. PT tolerated well, will continue to monitor.
[2022-05-11 05:00] VITALS: BMI 19.3
--- NOTE | 2022-05-11 05:45 | PC.NURSE ---
pt awake most of the night, pt confused and nonverbal at this time, pt will mumble and attempt to talk at times, noted left leg with internal rotation, +pedal pulse noted, cap refill >3 sec noted, skin pwd, respirations with upper rhonchi noted, pt deep suctioned nasally by RT with copious amt of sputum noted, pt tolerated well, non rebreather remains in place with 02 sats 94%; pt will grab and left hip and grimace when moved and coughs, morphine 1mg given as tolerated r/t to respiratory status, pt incontinent of urine, mild redness noted to coccyx area, remains at bedside throughout the night, b/p have been elevated with sbp 156-186; dbp in the 90's, maps have been greater than [address] no other issues noted at this time.
[2022-05-11 08:00] VITALS: BP 160/82; PULSE 118; PULSE 121; RESP 20; TEMP 37.7; O2SAT 90
--- NOTE | 2022-05-11 09:27 | EXP.ACUTE.PN ---
Subjective *Date: 05/11/22 *Time: 09:27 Interval history: Patient seems to be worse today, can not swallow, is on NRB mask and prelim. positive blood cultures. Spoke to family at bedside. Medical Exam Vital signs and Labs for Last 24 Hours: Temp Pulse Resp BP Pulse Ox FiO2 99.8 F H 118 H 20 160/82 H 90 L 100 05/11/22 08:00 05/11/22 08:00 05/11/22 08:00 05/11/22 08:00 05/11/22 08:00 05/10/22 21:08 Laboratory Results - last 24 hr 05/10/22 14:46: Specimen Source Right radial, O2 % 100%, ABG pH 7.40, ABG pCO2 35.6, ABG pO2 41.5 L, ABG HCO3 21.8 L, ABG Total CO2 22.8 L, ABG O2 Saturation 77 L*, ABG Base Excess -3.0 L, Sam Test Acceptable 05/10/22 16:27: Specimen Source Right radial, O2 % 100, ABG pH 7.40, ABG pCO2 36.9, ABG pO2 59.3 L, ABG HCO3 22.6, ABG Total CO2 23.7, ABG O2 Saturation 90, ABG Base Excess -2.2, Sam Test Y I & O for Labs for Last 24 Hours: Intake & Output 05/08/22 05/09/22 05/10/22 05/11/22 23:59 23:59 23:59 23:59 Intake Total 683 / 683 693 / 693 Output Total 0 / 0 0 / 0 Balance 683 / 683 693 / 693 Weight 127 lb 9 oz 126 lb 7.35 oz 127 lb 9.6 oz Microbiology Reports for the Last 24 Hours: Microbiology 05/09/22 07:45 Blood - Other Blood Culture - Preliminary NO GROWTH AFTER 48 HOURS 05/09/22 08:21 Urine,Clean Catch Urine Culture - Final NO GROWTH AFTER 48 HOURS 05/10/22 16:20 Sputum - Expectorated Sputum Gram Stain - Final Constitutional: Present moderate distress Head: Present normocephalic Respiratory: Present decreased breath sounds (bases) Cardiac: Present Reg Rate and Rhythm (Rhythm is paced) GI: Present soft; Absent tenderness Extremities: Absent edema Neuro: Present Weakness Comment:: non verbal Assessment and Plan *Assessment and plan (1) Closed fracture of left hip: Status: Acute Category: Medical Code(s): S72.002A - Fracture of unspecified part of neck of left femur, initial encounter for closed fracture (2) Community acquired pneumonia: Status: Acute Qualifiers: Laterality: left Lung location: lower lobe of lung Qualified Code(s): J18.9 - Pneumonia, unspecified organism Category: Medical Code(s): J18.9 - Pneumonia, unspecified organism (3) Acute hypoxemic respiratory failure: Status: Acute Category: Medical Code(s): J96.01 - Acute respiratory failure with hypoxia (4) Parkinson's disease (tremor, stiffness, slow motion, unstable posture): Status: Acute Category: Medical Code(s): G20 - Parkinson's disease (5) Hypertension: Status: Chronic Qualifiers: Hypertension type: essential hypertension Category: Medical Code(s): I10 - Essential (primary) hypertension (6) History of stomach cancer: Status: Acute Category: Medical Code(s): Z85.028 - Personal history of other malignant neoplasm of stomach (7) Weakness: Status: Acute Category: Medical Code(s): R53.1 - Weakness (8) Elevated lactic acid level: Status: Acute Category: Medical Code(s): R79.89 - Other specified abnormal findings of blood chemistry (9) Dysphagia: Status: Acute Category: Medical Code(s): R13.10 - Dysphagia, unspecified (10) AMS (altered mental status): Status: Acute Category: Medical Code(s): R41.82 - Altered mental status, unspecified (11) Pacemaker: Status: Acute Category: Medical Code(s): Z95.0 - Presence of cardiac pacemaker Plan Patient seems to be a poor surgical candidate. Will need to discuss with surgeon. Blood culture is prelim. positive, he also appears to be aspirating. Patient may have had a CVA, will likely need a CT head with IV contrast.
--- NOTE | 2022-05-11 09:33 | CT_ITS ---
FINAL REPORT TECHNIQUE: Thin section axial CT with IV contrast supplemented with multiplanar reconstruction under CT angiogram protocol. 3-D reconstructions were performed. This study was performed with techniques to keep radiation doses as low as reasonably achievable (ALARA). Individualized dose reduction techniques using automated exposure control or adjustment of mA and/or kV according to the patient''s size were employed. CLINICAL HISTORY: AMS, dysphagia, possible CVA, poss STROKE FINDINGS: The distal vertebral, basilar and distal internal carotid arteries have an unremarkable appearance. No aneurysm is seen. There is high-grade stenosis of the left M1 segment. Mild stenosis is seen of the distal right M1 segment. Noncontrast head CT demonstrates no hemorrhage, mass effect or edema. 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 The patient's nurse, India Santiago, was notified of these findings at 10:57 a.m.. Reviewed, Interpreted and Dictated by Leon Bailey III, MD Transcribed by Alexandrea Gilliland Authenticated and [facility]
--- NOTE | 2022-05-11 09:58 | EXP.ORTH.PN ---
Subjective *Date: 05/11/22 *Time: 09:58 Interval history: Unfortunately the patient is making a turn for the worse from pulmonary standpoint. Requiring increased amounts of oxygen to maintain sats. Has CT scan pending for evaluation possible stroke. Spoke with the family at bedside. Ortho Exam (Inpt) Vital signs and Labs for Last 24 Hours: Temp Pulse Resp BP Pulse Ox FiO2 99.8 F H 118 H 20 160/82 H 90 L 100 05/11/22 08:00 05/11/22 08:00 05/11/22 08:00 05/11/22 08:00 05/11/22 08:00 05/10/22 21:08 Laboratory Results - last 24 hr 05/10/22 14:46: Specimen Source Right radial, O2 % 100%, ABG pH 7.40, ABG pCO2 35.6, ABG pO2 41.5 L, ABG HCO3 21.8 L, ABG Total CO2 22.8 L, ABG O2 Saturation 77 L*, ABG Base Excess -3.0 L, Sam Test Acceptable 05/10/22 16:27: Specimen Source Right radial, O2 % 100, ABG pH 7.40, ABG pCO2 36.9, ABG pO2 59.3 L, ABG HCO3 22.6, ABG Total CO2 23.7, ABG O2 Saturation 90, ABG Base Excess -2.2, Sam Test Y I & O for Labs for Last 24 Hours: Intake & Output 05/08/22 05/09/22 05/10/22 05/11/22 23:59 23:59 23:59 23:59 Intake Total 683 / 683 693 / 693 Output Total 0 / 0 0 / 0 Balance 683 / 683 693 / 693 Weight 127 lb 9 oz 126 lb 7.35 oz 127 lb 9.6 oz Microbiology Reports for the Last 24 Hours: Microbiology 05/09/22 07:45 Blood - Other Blood Culture - Preliminary NO GROWTH AFTER 48 HOURS 05/09/22 08:21 Urine,Clean Catch Urine Culture - Final NO GROWTH AFTER 48 HOURS 05/10/22 16:20 Sputum - Expectorated Sputum Gram Stain - Final Findings:: And no acute distress or pain with the hip. Assessment and Plan *Assessment and plan (1) Basicervical fracture of left femur: Status: Acute Category: Medical Code(s): S72.042A - Displaced fracture of base of neck of left femur, initial encounter for closed fracture Plan Unfortunately he has taken a turn for the worse in regards to pulmonary status. Discussed with the family at bedside and also Dr. Choi given his unstable pulmonary status surgery would be certainly too risky at this point. If he were to make a improvement and be stable for surgical intervention we will proceed with hip surgery however in the interim very high risk for surgical complications with likely the inability to extubate him after surgery. Plan is to currently proceed without surgical intervention.
--- NOTE | 2022-05-11 10:41 | DIET.NUTRFU ---
RD rounded with provider today, SURVEILLANCE SYSTEMS ANALYST indicated patient did not do well with trails of oral food/liquids. He is unable to follow commands. SURVEILLANCE SYSTEMS ANALYST also feels he would not do well with MBSS d/t poor ability to follow commands. Provider spoke to family, and daughter was in room, he spoke to them about wishes for TF and overall condition, he has multiple problems at this time. Will continue NPO until SURVEILLANCE SYSTEMS ANALYST feels safe to upgrade diet. IVF in place for hydration.
[2022-05-11 10:47] VITALS: BMI 19.3
--- NOTE | 2022-05-11 11:05 | PC.NURSE ---
Left message with Dr Choi's RN of pt's CTA results
[2022-05-11 12:00] VITALS: BP 158/85; PULSE 110; PULSE 118; RESP 20; TEMP 38.1; O2SAT 93
--- NOTE | 2022-05-11 13:00 | EXP.ACUTE.PN ---
Subjective *Date: 05/11/22 *Time: 13:00 Interval history: Spoke to Dr. Aiken. CTA of head shows high grade stenosis in the M1 branch of the left middle cerebral artery. Medical Exam Vital signs and Labs for Last 24 Hours: Temp Pulse Resp BP Pulse Ox FiO2 99.8 F H 118 H 20 160/82 H 90 L 100 05/11/22 08:00 05/11/22 08:00 05/11/22 08:00 05/11/22 08:00 05/11/22 08:00 05/10/22 21:08 Laboratory Results - last 24 hr 05/10/22 14:46: Specimen Source Right radial, O2 % 100%, ABG pH 7.40, ABG pCO2 35.6, ABG pO2 41.5 L, ABG HCO3 21.8 L, ABG Total CO2 22.8 L, ABG O2 Saturation 77 L*, ABG Base Excess -3.0 L, Sam Test Acceptable 05/10/22 16:27: Specimen Source Right radial, O2 % 100, ABG pH 7.40, ABG pCO2 36.9, ABG pO2 59.3 L, ABG HCO3 22.6, ABG Total CO2 23.7, ABG O2 Saturation 90, ABG Base Excess -2.2, Sam Test Y I & O for Labs for Last 24 Hours: Intake & Output 05/08/22 05/09/22 05/10/22 05/11/22 23:59 23:59 23:59 23:59 Intake Total 683 / 683 693 / 693 Output Total 0 / 0 0 / 0 Balance 683 / 683 693 / 693 Weight 127 lb 9 oz 126 lb 7.35 oz 127 lb 9.304 oz Microbiology Reports for the Last 24 Hours: Microbiology 05/09/22 07:45 Blood - Other Blood Culture - Preliminary NO GROWTH AFTER 48 HOURS 05/09/22 08:21 Urine,Clean Catch Urine Culture - Final NO GROWTH AFTER 48 HOURS 05/10/22 16:20 Sputum - Expectorated Sputum Gram Stain - Final Comment:: Exam is unchanged from earlier today. He is non verbal and obtunded. Assessment and Plan *Assessment and plan (1) Closed fracture of left hip: Status: Acute Category: Medical Code(s): S72.002A - Fracture of unspecified part of neck of left femur, initial encounter for closed fracture (2) Community acquired pneumonia: Status: Acute Qualifiers: Laterality: left Lung location: lower lobe of lung Qualified Code(s): J18.9 - Pneumonia, unspecified organism Category: Medical Code(s): J18.9 - Pneumonia, unspecified organism (3) Acute hypoxemic respiratory failure: Status: Acute Category: Medical Code(s): J96.01 - Acute respiratory failure with hypoxia (4) Parkinson's disease (tremor, stiffness, slow motion, unstable posture): Status: Acute Category: Medical Code(s): G20 - Parkinson's disease (5) Hypertension: Status: Chronic Qualifiers: Hypertension type: essential hypertension Category: Medical Code(s): I10 - Essential (primary) hypertension (6) History of stomach cancer: Status: Acute Category: Medical Code(s): Z85.028 - Personal history of other malignant neoplasm of stomach (7) Weakness: Status: Acute Category: Medical Code(s): R53.1 - Weakness (8) Elevated lactic acid level: Status: Acute Category: Medical Code(s): R79.89 - Other specified abnormal findings of blood chemistry (9) Dysphagia: Status: Acute Category: Medical Code(s): R13.10 - Dysphagia, unspecified (10) AMS (altered mental status): Status: Acute Category: Medical Code(s): R41.82 - Altered mental status, unspecified (11) Pacemaker: Status: Acute Category: Medical Code(s): Z95.0 - Presence of cardiac pacemaker (12) Atrial fibrillation: Status: Acute Category: Medical Code(s): I48.91 - Unspecified atrial fibrillation (13) Cerebrovascular accident (CVA) due to stenosis of middle cerebral artery: Status: Acute Category: Medical Code(s): I63.519 - Cerebral infarction due to unspecified occlusion or stenosis of unspecified middle cerebral artery Plan Spoke to patient's family about findings of CTA. Patient has a very poor prognosis, discussed end of life care.
--- NOTE | 2022-05-11 15:57 | SW/DCPLANNER ---
MD has ordered comfort care for this patient. Patient information has been faxed to [facility] for comfort care. A.Yo. w/Hospice has evaluated this patient and has agreed to admit patient inpatient Hospice Care. Ophelia. and nurse (Mamta) have informed MD of this plan.
--- NOTE | 2022-05-11 17:11 | PC.NURSE ---
Pt will awaken to name. He is unable to follow commands. He is currently on 50% venti mask with humidification per MD request. Pt is currently comfort measures only. Hospice has been to see patient. DNR signed and on the chart, bracelet placed on pt's wrist. Pt turned for comfort. Bed is locked and in the lowest position, call light is within reach.
[2022-05-11 20:00] VITALS: BP 115/65; PULSE 61; RESP 20; TEMP 37.6; O2SAT 93
--- NOTE | 2022-05-11 20:48 | P.DN_ITS ---
Pronouncement Note Date and Time of Date of : 05/11/22 Time of : 20:44 PCOD Preliminary cause of : Respiratory failure Contributing Factors (1) Closed fracture of left hip: (2) Community acquired pneumonia: (3) Acute hypoxemic respiratory failure: (4) Parkinson's disease (tremor, stiffness, slow motion, unstable posture): (5) Hypertension: (6) History of stomach cancer: (7) Weakness: (8) Elevated lactic acid level: (9) Dysphagia: (10) AMS (altered mental status): (11) Pacemaker: (12) Atrial fibrillation: (13) Cerebrovascular accident (CVA) due to stenosis of middle cerebral artery: Additional Data Confirmation of : no pulse, no respirations, no heart sounds and pupils fixed and dilated Family: at bedside Attending/PCP notified?: Yes Attending physician: DR Choi Was code activated?: No Autopsy requested?: No cigarette making examiner notified?: No
--- NOTE | 2022-05-11 22:46 | PC.NURSE ---
at 2029 tech asked this nurse to come into room with concerns that pt. was not breathing, this nurse went into room and assessed pt, no lung sounds or heart sounds were auscultated. at 2031 this nurse asked another nurse to come verify the findings, other nurse also heard no lung sounds or heart sounds upon auscultation, family was told that no sounds were heard and MD would be notified MD ny was notified at 2037, asked to notify ER doc and have them come up. plumbing warehouse helper was also notified at this time. hospitalist arrived to the floor and pronounced at 2043. MARCUS was contacted at [phone] at [phone] this nurse and another nurse went into room to offer family condolences and ask about home preferences. family stated that the son would be making those decisions and that he was on his way. pt son arrived to room at 2209. son was asked about home preferences, son stated they would be using [facility] in [place]. family was notified of plan of care moving forward. hospice was notified at 2214. at [address] their way into the waiting room home was contacted at [phone]. family stated that they were going home at this time post mortem care was provided by this nurse and a tech at 2224 pt left at 2340 with home
--- NOTE | 2022-05-14 21:40 | EXP.DC.SUM ---
General Admission date:: 05/09/22 Discharge date: 05/11/22 HPI HPI HPI: ER NARRATIVE ON ADMISSION: 82-year-old male presenting to the emergency department by EMS, chief complaint of weakness and fall.? Incident happened earlier this morning.? He went to get up out of bed and lost his balance, fell onto the floor.? heard a commotion and called 911.? Patient usually is able to ambulate with a walker, but has physical therapy come to the house.? He has been getting more more weak over the last few days.? Not complaining of any injuries from the fall.? No weakness in 1 arm or leg.? Was hypoxic with EMS into the high 80s.? They placed him on a nonrebreather.? He has a history of COPD and emphysema.? Uses inhalers.? No recent antibiotics or steroids.? says he had surgery for colon cancer 2 years ago and seems like he never recovered.? He also has a pacemaker.? No recent nausea, vomiting, fevers.? Patient denies shortness of breath, chest pain, wheezing.? No headache, back pain, abdominal pain. stated that he had some cognitive difficulties following surgery in 2019 and these have been progressive over time. She does not feel like he is making good progress with physical therapy at home. Hospital Course Hospital Course Hospital Course: CT of the head was negative apart from some soft tissue swelling of the scalp. The patient's hip x-ray showed an impacted intertrochanteric fracture of the left hip. The patient was admitted and started on pain control. Ortho was consulted. Carbidopa/levodopa was added as well for parkinsonian type symptoms. Patient was seen by Ortho. Due to his increased white count and pneumonia, he wanted to wait on surgery for the left hip fracture. By 05/10/2022, his respiratory status declined. His oxygen saturations were harder to maintain over 90%. He was switched to a nonrebreather. His preliminary blood culture showed evidence of gram-positive cocci suggesting staph. He was started on vancomycin. He had a repeat chest x-ray showing more prominence of infiltrates in the right lower lobe. CT of the chest with PE protocol was ordered and he was started on nitroglycerin paste to decrease his blood pressure. He was not clinically stable for surgery. By 05/11/2022, he was worse. He was unable to swallow. He appeared to be aspirating. It was felt he may have had a CVA and would likely need a CT of the head with IV contrast. Surgery for the hip fracture was postponed. 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 He became nonverbal and obtunded. Dr. Choi spoke with the family about his very poor prognosis and discussed end-of-life care. They wanted comfort measures only and hospice was consulted. The patient quit breathing and lost a pulse on the evening of 05/11/2022 and he was pronounced at 2043. Exam Data for Last 24 hours Vital signs and Labs for Last 24 Hours: Temp Pulse Resp BP Pulse Ox FiO2 99.7 F H 61 20 115/65 93 L 100 05/11/22 20:00 05/11/22 20:00 05/11/22 20:00 05/11/22 20:00 05/11/22 20:00 05/10/22 21:08 Microbiology Reports for the Last 24 Hours: Microbiology 05/09/22 07:45 Blood - Other Blood Culture - Preliminary Bacillus circulans 05/09/22 07:45 Blood - Other Blood Culture - Final NO GROWTH AFTER 5 DAYS Narrative: Constitutional Constitutional: mild distress, thin and chronically ill appearing *Routine HEENT Exam Head: Present atraumatic Eye: Present PERRL ENT: Present mucous membranes moist *Routine Neck Exam Neck: Absent JVD Routine Chest/Breast/Axilla Exam Chest wall: Present pacemaker; Absent tenderness or mass *Routine Respiratory Exam Respiratory: Present decreased breath sounds, rhonchi and other (Rattling congested cough.) *Routine Cardiovascular Exam Cardiovascular: Present RRR (Rhythm is paced) *Routine Abdominal Exam Abd
== END 2022-05-11 23:40 | disposition expired | DRG 535 ==
LOC: ER 09:25 → 2ND 11:07
PROVIDERS: Admitting Provider Family Medicine; Emergency Provider Emergency Medicine; PCP Family Medicine; Visit Provider Family Medicine
DX: I63.519 Cerebral infarction due to unspecified occlusion or stenosis of unspecified middle cerebral artery (principal); J18.9 Pneumonia, unspecified organism; J96.01 Acute respiratory failure with hypoxia; S72.042A Displaced fracture of base of neck of left femur, initial encounter for closed fracture; Z51.5 Encounter for palliative care; S72.002A Fracture of unspecified part of neck of left femur, initial encounter for closed fracture; G20 Parkinson's disease; I10 Essential (primary) hypertension; I48.91 Unspecified atrial fibrillation; Z85.028 Personal history of other malignant neoplasm of stomach; J43.9 Emphysema, unspecified; R13.10 Dysphagia, unspecified; W19.XXXA Unspecified fall, initial encounter
CPT/HCPCS: 36415; 70450; 70496; 71045; 71275; 72170; 73502; 80048; 80053; 81001; 82803; 83605; 84484; 85007; 85025; 87040; 87070; 87077; 87086; 87205; 92526; 92610; 93005; 94640; 99285; C9803; J0456; J0696; J3370; Q9967; U0003; U0005